=== PATIENT | female | born 1985 | race Caucasian/White ===

== ENCOUNTER 2017-12-09 16:17 | Emergency (ER) | payer SELFPAY ==
[2017-12-09 16:22] VITALS: BP 126/80; PULSE 73; TEMP 98.3; BMI 27.3
--- NOTE | 2017-12-09 16:24 | PDOC ---
Rapid Medical Evaluation Chief Complaint: Pain Time Seen by Provider: 12/09/17 16:19 Medical Evaluation: Allergies Allergy/AdvReac Type Severity Reaction Status Date / Time No Known Drug Allergies Allergy Verified 12/09/17 16:22 Vital Signs Temp Pulse Resp BP Pulse Ox 98.3 F 73 19 126/80 99 12/09/17 16:20 12/09/17 16:20 12/09/17 16:20 12/09/17 16:20 12/09/17 16:20 12/09/17 17:05 The patient presents with a chief complaint of: Pinching pain in her lower abdomen for one day. No nausea, vomiting, no diarrhea I have performed a brief in-person evaluation of this patient; Pertinent physical exam findings: Soft non-tender abdomen I have ordered the following: CBC. CMP, UA, UC, Urine preg The patient will proceed to the ED for further evaluation.
[2017-12-09 18:18] LABS: URINE APPEARANCE CLEAR; URINE BILIRUBIN NEGATIVE (NEGATIVE); URINE BLOOD NEGATIVE (NEGATIVE); URINE COLOR YELLOW; URINE GLUCOSE (UA) 3+ (NEGATIVE); URINE KETONE 1+ (NEGATIVE); URINE NITRITE NEGATIVE (NEGATIVE); URINE PROTEIN NEGATIVE (NEGATIVE); URINE UROBILINOGEN NEGATIVE mg/dL (0.2-1.0)
[2017-12-09 18:20] LABS: BASO % 0.4 % (0-2.0); EOS % 0.7 % (0-4.5); HEMATOCRIT 31.5 % (32.4-45.2); HEMOGLOBIN 9.7 GM/dL (10.7-15.3); LYMPH % 30.3 % (8-40); MCHC 30.7 g/dl (32.0-36.0); MEAN CELL VOLUME 59.2 fl (80-96); MEAN PLT VOLUME 8.8 fl (7.5-11.1); MONO % 4.9 % (3.8-10.2); NEUT % 63.7 % (42.8-82.8); PLATELET COUNT 230 K/MM3 (134-434); RBC 5.32 M/mm3 (3.60-5.2); WHITE BLOOD COUNT 7.6 K/mm3 (4.0-10.0)
[2017-12-09 18:33] LABS: MCH 18.2 pg (25.7-33.7)
[2017-12-09 18:34] LABS: ADD RBC MORPHOLOGY YES
[2017-12-09 18:43] LABS: ALBUMIN 3.4 g/dl (3.4-5.0); ANION GAP 7 (8-16); BLOOD UREA NITROGEN 12 mg/dL (7-18); CALCIUM 7.9 mg/dL (8.5-10.1); CHLORIDE 100 mmol/L (98-107); CO2 25 mmol/L (21-32); CREATININE 0.4 mg/dL (0.55-1.02); GLUCOSE,RANDOM 212 mg/dL (74-106); SODIUM 132 mmol/L (136-145)
[2017-12-09 18:45] LABS: ALK PHOS 149 U/L (45-117); BILIRUBIN,TOTAL 0.6 mg/dL (0.2-1.0); TOT PROT 7.3 g/dl (6.4-8.2)
[2017-12-09 18:46] LABS: POTASSIUM 3.6 mmol/L (3.5-5.1); SGOT/AST 12 U/L (15-37); SGPT/ALT 25 U/L (12-78)
[2017-12-09 19:22] LABS: URINE LEUK ESTERASE 1+ (NEGATIVE)
--- NOTE | 2017-12-09 20:37 | PDOC ---
History of Present Illness - General Chief Complaint: Pain Stated Complaint: STOMACH PAIN Time Seen by Provider: 12/09/17 16:19 History Source: Patient Exam Limitations: No Limitations - History of Present Illness Travel History: No Initial Comments: 12/09/17 20:33 This is a 32-year-old woman without significant past medical history presents emergency department with 1 day of left pelvic pain. Patient states she felt a pinching feeling in her left pelvic area starting yesterday and rates the pain 8 /10. She states the pain comes and goes over the past day. She states she has been having white vaginal discharge starting yesterday. She reports having intercourse with one male partner over the past 2 years. She states she is only having vaginal intercourse and denies anal or oral sex. She denies any fevers, chills, nausea, vomiting, dysuria, hematuria, urinary urgency, rectal bleeding. Patient states her last menstrual period was 11/16/2017. Past History - Past Medical History Allergies/Adverse Reactions: Allergies Allergy/AdvReac Type Severity Reaction Status Date / Time No Known Drug Allergies Allergy Verified 12/09/17 16:22 Home Medications: Ambulatory Orders Glyburide 5 mg PO DAILY 11/23/13 Vitamins (Sjr) - 1 tab PO DAILY 11/30/13 Metronidazole [Flagyl -] 500 mg PO BID #14 tablet 12/09/17 Asthma: No Cancer: No Cardiac Disorders: No COPD: No Diabetes: Yes (gdm) HTN: No Seizures: No Thyroid Disease: No - Suicide/Smoking/Psychosocial Hx Smoking History: Never smoked Have you smoked in the past 12 months: No Information on smoking cessation initiated: No Hx Alcohol Use: No Drug/Substance Use Hx: No Substance Use Type: None Hx Substance Use Treatment: No Review of Systems - Review of Systems Able to Perform ROS?: Yes Is the patient limited Vietnamese proficient: No Constitutional: No: Symptoms Reported HEENTM: No: Symptoms Reported Respiratory: No: Symptoms reported Cardiac (ROS): No: Symptoms Reported ABD/GI: No: Symptoms Reported : Yes: See HPI Musculoskeletal: No: Symptoms Reported Integumentary: No: Symptoms Reported Neurological: No: Symptoms reported *Physical Exam - Vital Signs Last Vital Signs Temp Pulse Resp BP Pulse Ox 98.3 F 73 19 126/80 99 12/09/17 16:20 12/09/17 16:20 12/09/17 16:20 12/09/17 16:20 12/09/17 16:20 - Physical Exam General Appearance: Yes: Appropriately Dressed. No: Apparent Distress HEENT: positive: Normal ENT Inspection Neck: positive: Trachea midline, Supple Respiratory/Chest: positive: Lungs Clear, Normal Breath Sounds. negative: Respiratory Distress, Accessory Muscle Use Cardiovascular: positive: Regular Rhythm, Regular Rate Female Pelvic Exam: positive: cervical os closed, normal adnexa, discharge ( milky white). negative: CMT, adnexal tenderness Gastrointestinal/Abdominal: positive: Normal Bowel Sounds, Soft. negative: Tender Musculoskeletal: positive: Normal Inspection. negative: CVA Tenderness Extremity: positive: Normal Inspection, Normal Range of Motion Integumentary: positive: Normal Color, Dry, Warm Neurologic: positive: trade mark examiner II-XII NML intact, Fully Oriented, Alert, Normal Mood/ Affect, Normal Response, Motor Strength 04/02 ED Treatment Course - LABORATORY CBC & Chemistry Diagram: 12/09/17 18:00 12/09/17 18:00 - ADDITIONAL ORDERS Additional order review: Laboratory Results 12/09/17 12/09/17 12/09/17 18:00 18:00 18:00 Sodium 132 L Potassium 3.6 Chloride 100 Carbon Dioxide 25 Anion Gap 7 L BUN 12 Creatinine 0.4 L Creat Clearance w eGFR > 60 Random Glucose 212 H Calcium 7.9 L Total Bilirubin 0.6 AST 12 L ALT 25 Alkaline Phosphatase 149 H Total Protein 7.3 Albumin 3.4 Urine Color Yellow Urine Appearance Clear Urine pH 5.0 Ur Specific [place] 1.032 Urine Protein Negative Urine Glucose (UA) 3+ H Urine Ketones 1+ H Urine Blood Negative Urine Nitrite Negative Urine Bilirubin Negative Urine Urobilinogen Negative Ur Leukocyte Esterase 1+ H Urine HCG, Qual Negative 12/09/17 18:00 RBC 5.32 H D MCV 59.2 L MCHC 30.7 L RDW 19.0 H D MPV 8.8 Neutrophils % 63.7 Lymphocytes % 30.3 D Monocytes % 4.9 Eosinophils % 0.7 Basophils % 0.4 Medical Decision Making - Medical Decision Making 12/09/17 20:35 A/P: This is a 32-year-old woman without significant past medical history presents emergency department with 1 day of left pelvic pain. Patient states she felt a pinching feeling in her left pelvic area starting yesterday and rates the pain 8 /10. She states the pain comes and goes over the past day. She states she has been having white vaginal discharge starting yesterday. She reports having intercourse with one male partner over the past 2 years. She states she is only having vaginal intercourse and denies anal or oral sex. She denies any fevers, chills, nausea, vomiting, dysuria, hematuria, urinary urgency, rectal bleeding. Patient states her last menstrual period was 11/16/2017. Normoactive bowel sounds. Abdomen soft nontender nondistended. Patient with tenderness to palpation to left inguinal area. No adnexal tenderness. No cervical motion tenderness. A few eye discharge noted in the vault. Cervix is pink and os is closed. Diagnoses: Bacterial Vaginosis Laboratory evaluation reveals patient is not at this time. Patient with normal vitals. Given physical exam, I'll treat the patient with Flagyl 500 mg twice a day for 7 days. 12/09/17 22:44 *DC/Admit/Observation/Transfer Diagnosis at time of Disposition: Bacterial vaginosis - Discharge Dispostion Disposition: HOME Condition at time of disposition: Stable Admit: No - Prescriptions Prescriptions: Metronidazole [Flagyl -] 500 mg PO BID #14 tablet - Referrals - Patient Instructions Printed Discharge Instructions: DI for Bacterial Vaginosis Additional Instructions: Eating yogurt with live cultures may help prevent other infections. Take Flagyl 500 mg twice a day for the next 7 days. Finish all the medications. Avoid sexual activity for the next 7 days. Return to emergency department for any severe pain, worsening discharge, foul- smelling discharge, fevers, chills or any other concerns. Thank you very much for choosing us to provide your emergent healthcare needs. Print Language: MACEDONIAN - Post Discharge Activity
[2017-12-10 00:04] LABS: CALCIUM OXALATE CRYSTALS MODERATE /hpf (NONE SEEN); EPI CELLS RARE /HPF (FEW); URINE MUCUS RARE
== END 2017-12-09 23:24 | disposition home or self-care (01) ==
LOC: JER 16:17
DX: N76.0 Acute vaginitis (principal); B96.89 Other specified bacterial agents as the cause of diseases classified elsewhere
CPT/HCPCS: 36415; 80053; 81003; 81015; 84703; 85025; 87086; 99281-25

== ENCOUNTER 2018-08-12 09:15 | Inpatient (IN) | payer OTHER ==
[2018-08-12] MEDS ORDERED: ELECTROLYTE-148 SOLN 500 ML IV ONE (11:30)
[2018-08-12] MEDS ORDERED: CITRIC ACID/SODIUM CITRATE 30 ML UNIT-DOSE CUP PO ONE (11:30)
--- NOTE | 2018-08-12 11:50 | HP ---
Admitting History and Physical - Admission Chief Complaint: prior cs. 05/06 bpp History of Present Illness: 33 y/o comes to [facility] for an nst for gdm. Pt sent for bpp and 05/06 was score. Rec delivery. She is a prior cs and will plan for repeat. efw is 9lbs History Source: Patient - Past Medical History DIRECTOR OF CARDIOLOGY SERVICE LINE: No: Alzheimer's, CVA, Dementia, Migraine, Multiple Sclerosis, Peripheral Neuropathy, Parkinson's, Seizure, Syncope, TIA, Vertigo, Other Cardiovascular: No: AFIB, Aneurysm, Aortic Insufficiency, Aortic Stenosis, CAD, CHF, Deep Vein Thrombosis, HTN, Hyperlipdemia, OK, Mitral Insufficiency, Mitral Stenosis, Murmur, Pulmonary Hypertension, Other Pulmonary: No: Asthma, Bronchitis, Cancer, COPD, O2 Dependent, Pneumonia, Previously Intubated, Pulmonary Embolus, Pulmonary Fibrosis, Sleep Apnea, Other Gastrointestinal: No: Ascites, Cancer, Constipation, Crohn's Disease, Diverticulitis, Diverticulosis, Esophageal Varices, Gastritis, GERD, GI Bleed, Hemorrhoids, Hiatal Hernia, Inflamatory Bowel Disease, Irritable Bowel Disease, Pancreatitis, Peptic Ulcer Disease, Ulcerative Colitis, Other Hepatobiliary: No: Cirrhosis, Cholelithiasis, Cholecystitis, Choledocholithiasis , Hepatitis A, Hepatitis B, Hepatitis C, Other Renal/: No: Renal Failure, Renal Inusuff, BPH, Cancer, Hematuria, Hemodialysis , Neurogenic Bladder, Renal Calculi, UTI, Other Reproductive: No: Ectopic , Endometriosis, Fibroids, PID, Polycystic Ovary Syndrome, Postmenopausal, Other ...: 4 ...Para: 3 Heme/Onc: No: Anemia, B12 Deficiency, Bleeding Disorder, Cancer, Current Chemotherapy, Current Radiation Therapy, Hemochromatosis, Hypercoaguable State, Myeloproliferative Synd, Sickle Cell Disease, Sickle Cell Trait, Thrombocytopenia, Other Infectious Disease: No: AIDS, C-Diff, Herpes Zoster, HIV, MRSA, STD's, Tuberculosis, VREF, Other Psych: No: Addictions, Anxiety, Bipolar, Depression, Panic, Psychosis, Schizophrenia, Other Musculoskeletal: No: Bursitis, Chronic low back pain, Hemiparesis, Hemiplegia, Osteoarthritis, Paraplegia, Other ENT: No: Allergic Rhinitis, Sinusitis, Other Endocrine: No: Daniels's Disease, Adelso's Disease, Diabetes Insipidus, Diabetes Mellitus, Hyperparathyroidism, Hyperthyroidism, Hypothyroidism, Osteopenia, SIADH, Other - Past Surgical History Past Surgical History: No: None, AAA Repair, AICD, Amputation, Appendectomy, Arthrosocopy, AV Fistula/Graft, Bariatric Surgery, Breast Biopsy, Bypass, CABG, Carotid Endarterectomy, Cataract Removal, Cholecystectomy, Colectomy, Colonoscopy, Colostomy, Craniotomy, , Cystectomy, Hernia Repair, Hysterectomy, Ileal Conduit, Ileosotomy, Joint Replacement, Kidney Transplant, Laminectomy, Liver Transplant, Mastectomy, Nephrectomy, Oopherectomy, Orchiectomy, Permanent Pacemaker, Prostatectomy, Splenectomy, Stent, Thoracotomy , TURP, Tonsillectomy, Tubal Ligation, Upper Endoscopy, Valve Replacement, Vasectomy, Vein Stripping/Ligation - Advance Directives Advance Directives: No: Living Will, Health Care Proxy, DNR, Organ Donor, Tissue Donor, MOLST - Smoking History Smoking history: Never smoked Have you smoked in the past 12 months: No - Alcohol/Substance Use Hx Alcohol Use: No History of Substance Use: denies: None, Cocaine, Heroin, Marijuana, Prescription , Tranquilizers - Social History Usual Living Arrangement: No: Alone, With Spouse, With Parent, With Significant Other, With Child, Assisted Living, Skilled Nursing, Other Home Medications - Allergies Allergies/Adverse Reactions: Allergies Allergy/AdvReac Type Severity Reaction Status Date / Time No Known Drug Allergies Allergy Verified 08/10/18 09:48 - Home Medications Home Medications: Ambulatory Orders Glyburide 2.5 mg PO HS 11/23/13 Vitamins (Sjr) - 1 tab PO DAILY 11/30/13 Review of Systems - Review of Systems Constitutional: reports: No Symptoms Eyes: reports: No Symptoms HENT: reports: No Symptoms Neck: reports: No Symptoms Cardiovascular: reports: No Symptoms Respiratory: reports: No Symptoms Gastrointestinal: reports: No Symptoms Genitourinary: reports: No Symptoms Musculoskeletal: reports: No Symptoms Integumentary: reports: No Symptoms Neurological: reports: No Symptoms Endocrine: reports: No Symptoms Hematology/Lymphatic: reports: No Symptoms Psychiatric: reports: No Symptoms Physical Examination Vital Signs: Vital Signs Temperature 99.1 F 08/12/18 09:29 Pulse Rate 65 08/12/18 09:29 Respiratory Rate 20 08/12/18 09:29 Blood Pressure 120/62 08/12/18 09:29 O2 Sat by Pulse Oximetry (%) Constitutional: Yes: Well Nourished Eyes: Yes: WNL HENT: Yes: WNL Neck: Yes: WNL Cardiovascular: Yes: WNL Respiratory: Yes: WNL Gastrointestinal: Yes: WNL ...Rectal Exam: Yes: WNL Renal/: Yes: WNL Breast(s): Yes: WNL Musculoskeletal: Yes: WNL Extremities: Yes: WNL Integumentary: Yes: WNL Neurological: Yes: WNL ...Motor Strength: WNL Psychiatric: Yes: WNL Assessment/Plan admit for cs consents labs
[2018-08-12] MEDS ORDERED: ELECTROLYTE-148 SOLN 1,000 ML IV SCH (12:00)
[2018-08-12 12:20] VITALS: BMI 31.2
[2018-08-12 12:24] LABS: BASO % 0.6 % (0-2.0); EOS % 0.8 % (0-4.5); HEMATOCRIT 35.4 % (32.4-45.2); HEMOGLOBIN 11.3 GM/dL (10.7-15.3); LYMPH % 24.1 % (8-40); MCHC 31.9 g/dl (32.0-36.0); MEAN CELL VOLUME 75.1 fl (80-96); MONO % 5.7 % (3.8-10.2); NEUT % 68.8 % (42.8-82.8); PLATELET COUNT 128 K/MM3 (134-434); RBC 4.71 M/mm3 (3.60-5.2); RDW 16.3 % (11.6-15.6); WHITE BLOOD COUNT 6.9 K/mm3 (4.0-10.0)
[2018-08-12] MEDS ORDERED: PHENYLEPHRINE HCL 10 MG/1 ML SINGLE DOSE VIAL ONE (12:33)
[2018-08-12] MEDS ORDERED: DEXAMETHASONE SOD PHOSPHATE 4 MG/1 ML VIAL ONE (12:33)
[2018-08-12] MEDS ORDERED: ceFAZolin SODIUM 1 GM VIAL ONE (12:33)
[2018-08-12] MEDS ORDERED: morphine SULFATE/Preservative Free 0.5 MG/ML (1cc Syringe) ONE (12:33)
[2018-08-12 12:42] LABS: ANION GAP 11 MMOL/L (8-16); BLOOD UREA NITROGEN 9 mg/dL (7-18); CHLORIDE 110 mmol/L (98-107); CO2 20 mmol/L (21-32); CREATININE 0.4 mg/dL (0.55-1.3); GLUCOSE,RANDOM 90 mg/dL (74-106); SODIUM 141 mmol/L (136-145)
[2018-08-12 12:54] LABS: INR 0.95 (0.83-1.09); PROTHROMBIN TIME (PATIENT) 10.7 SEC (9.7-13.0)
[2018-08-12 12:57] LABS: ACTIVATED PTT 30.5 SECONDS (25.2-36.5)
[2018-08-12] MEDS ORDERED: METHYLERGONOVINE MALEATE 0.2 MG/1 ML AMP IM PRN (13:50)
[2018-08-12] MEDS ORDERED: ACETAMINOPHEN 1000 MG/100 ML VIAL (NON FORMULARY) IVPB PRN (14:09)
[2018-08-12] MEDS ORDERED: IBUPROFEN 800 MG/8 ML IJ IVPB PRN (14:10)
[2018-08-12] MEDS ORDERED: OXYTOCIN 20 UNITS in 0.9% NS 20 UNIT/1,000 ML INFUS.BAG IV ONE (15:13)
[2018-08-12] MEDS: OXYTOCIN 20 UNITS in 0.9% NS 20 UNIT/1,000 ML INFUS.BAG IV SCH (15:14)
[2018-08-12] MEDS ORDERED: ONDANSETRON 4 MG/2 ML VIAL IVPUSH PRN (19:37)
[2018-08-13] MEDS: OXYTOCIN 20 UNITS in 0.9% NS 20 UNIT/1,000 ML INFUS.BAG IV SCH
[2018-08-13 07:17] LABS: BASO % 0.4 % (0-2.0); EOS % 0.2 % (0-4.5); HEMATOCRIT 28.6 % (32.4-45.2); HEMOGLOBIN 9.3 GM/dL (10.7-15.3); LYMPH % 21.7 % (8-40); MCH 24.4 pg (25.7-33.7); MCHC 32.5 g/dl (32.0-36.0); MEAN CELL VOLUME 75.1 fl (80-96); MONO % 7.6 % (3.8-10.2); NEUT % 70.1 % (42.8-82.8); PLATELET COUNT 117 K/MM3 (134-434); RBC 3.81 M/mm3 (3.60-5.2); RDW 16.3 % (11.6-15.6); WHITE BLOOD COUNT 9.1 K/mm3 (4.0-10.0)
--- NOTE | 2018-08-13 08:32 | PN ---
Progress Note (short form) - Note Progress Note: Anesthesia Post op Pt seen and examined S:Alert and awake comfortable O: Vital Signs Temperature 98.1 F 08/13/18 08:10 Pulse Rate 52 L 08/13/18 08:10 Respiratory Rate 20 08/13/18 08:10 Blood Pressure 103/64 08/13/18 08:10 O2 Sat by Pulse Oximetry (%) 100 08/12/18 15:30 CBC, BMP 08/13/18 06:54 08/12/18 12:00 A/P s/p c section Doing well post op Continue current care Ethan Werner MD
--- NOTE | 2018-08-13 10:13 | PN ---
Post Progress Note Post Day: 1 Type of Delivery: Repeat C/S Vital Signs: Vital Signs Temperature 98.1 F 08/13/18 08:10 Pulse Rate 52 L 08/13/18 08:10 Respiratory Rate 20 08/13/18 08:10 Blood Pressure 103/64 08/13/18 08:10 O2 Sat by Pulse Oximetry (%) 100 08/12/18 15:30 Breast Exam: Yes: Soft Uterus: Yes: Fundus Firm Incision: Yes: Dressing dry and intact Abdomen/GI: Yes: Abdomen soft Lochia: Yes: Rubra Lochia, amount: Small Extremities: Yes: Calves non-tender Perineum: Yes: Intact Activity: Ambulating - Labs Labs: CBC WBC 9.1 K/mm3 (4.0-10.0) 08/13/18 06:54 RBC 3.81 M/mm3 (3.60-5.2) 08/13/18 06:54 Hgb 9.3 GM/dL (10.7-15.3) L 08/13/18 06:54 Hct 28.6 % (32.4-45.2) L D 08/13/18 06:54 MCV 75.1 fl (80-96) L 08/13/18 06:54 MCH 24.4 pg (25.7-33.7) L 08/13/18 06:54 MCHC 32.5 g/dl (32.0-36.0) 08/13/18 06:54 RDW 16.3 % (11.6-15.6) H 08/13/18 06:54 Plt Count 117 K/MM3 (134-434) L 08/13/18 06:54 MPV 10.0 fl (7.5-11.1) 08/13/18 06:54 Absolute Neuts (auto) 6.4 K/mm3 (1.5-8.0) 08/13/18 06:54 Neutrophils % 70.1 % (42.8-82.8) 08/13/18 06:54 Lymphocytes % 21.7 % (8-40) 08/13/18 06:54 Monocytes % 7.6 % (3.8-10.2) 08/13/18 06:54 Eosinophils % 0.2 % (0-4.5) 09/15/18 06:54 Basophils % 0.4 % (0-2.0) 08/13/18 06:54 Nucleated RBC % 0 % (0-0) 08/13/18 06:54 Assessment/Plan oob reg diet continue care
[2018-08-13] MEDS ORDERED: BISACODYL 10 MG SUPP.RECT RC PRN (13:51)
[2018-08-13] MEDS: IBUPROFEN 600 MG TABLET (FP) PO PRN (18:41)
[2018-08-13] MEDS: SIMETHICONE 80 MG TAB.CHEW (FP) PO PRN (18:41)
[2018-08-13] MEDS: oxyCODONE HCL 5 MG TABLET PO PRN (20:39)
[2018-08-14] MEDS: oxyCODONE HCL 5 MG TABLET PO PRN ×3 (05:42→21:03)
[2018-08-14] MEDS: SIMETHICONE 80 MG TAB.CHEW (FP) PO PRN ×3 (05:42→21:02)
[2018-08-14] MEDS: IBUPROFEN 600 MG TABLET (FP) PO PRN ×2 (10:46→21:02)
--- NOTE | 2018-08-14 11:52 | PN ---
Post Progress Note - Subjective Subjective: Pt feeling well. Tolerating diet. No flatus. Would like btl for contraception. Did not sign tubal papers Post Day: 2 Type of Delivery: Repeat C/S Vital Signs: Vital Signs Temperature 98.4 F 08/14/18 08:33 Pulse Rate 68 08/14/18 08:33 Respiratory Rate 20 08/14/18 08:33 Blood Pressure 108/68 08/14/18 08:33 O2 Sat by Pulse Oximetry (%) 100 08/12/18 15:30 Breast Exam: Yes: Soft Uterus: Yes: Fundus Firm Incision: Yes: [place] intact Abdomen/GI: Yes: Abdomen soft Lochia: Yes: Rubra Lochia, amount: Small Extremities: Yes: Calves non-tender Perineum: Yes: Intact Activity: Ambulating - Labs Labs: CBC WBC 9.1 K/mm3 (4.0-10.0) 08/13/18 06:54 RBC 3.81 M/mm3 (3.60-5.2) 08/13/18 06:54 Hgb 9.3 GM/dL (10.7-15.3) L 08/13/18 06:54 Hct 28.6 % (32.4-45.2) L D 08/13/18 06:54 MCV 75.1 fl (80-96) L 08/13/18 06:54 MCH 24.4 pg (25.7-33.7) L 08/13/18 06:54 MCHC 32.5 g/dl (32.0-36.0) 08/13/18 06:54 RDW 16.3 % (11.6-15.6) H 08/13/18 06:54 Plt Count 117 K/MM3 (134-434) L 08/13/18 06:54 MPV 10.0 fl (7.5-11.1) 08/13/18 06:54 Absolute Neuts (auto) 6.4 K/mm3 (1.5-8.0) 08/13/18 06:54 Neutrophils % 70.1 % (42.8-82.8) 08/13/18 06:54 Lymphocytes % 21.7 % (8-40) 08/13/18 06:54 Monocytes % 7.6 % (3.8-10.2) 08/13/18 06:54 Eosinophils % 0.2 % (0-4.5) 08/13/18 06:54 Basophils % 0.4 % (0-2.0) 08/13/18 06:54 Nucleated RBC % 0 % (0-0) 08/13/18 06:54 Problem List - Problems (1) section Assessment/Plan: Pt POD#2 s/p rpt c/s doing well diet as tolerated ambulation encouraged continue routine postop care Dr. Ford
[2018-08-15 07:13] LABS: BASO % 0.5 % (0-2.0); HEMATOCRIT 29.6 % (32.4-45.2); HEMOGLOBIN 9.5 GM/dL (10.7-15.3); LYMPH % 16.3 % (8-40); MCH 24.1 pg (25.7-33.7); MCHC 32.2 g/dl (32.0-36.0); MEAN CELL VOLUME 74.9 fl (80-96); MEAN PLT VOLUME 8.6 fl (7.5-11.1); MONO % 4.5 % (3.8-10.2); NEUT % 77.7 % (42.8-82.8); PLATELET COUNT 165 K/MM3 (134-434); RBC 3.95 M/mm3 (3.60-5.2); RDW 16.3 % (11.6-15.6); WHITE BLOOD COUNT 8.4 K/mm3 (4.0-10.0)
[2018-08-15 11:24] VITALS: BP 109/64; PULSE 72; TEMP 98.6
--- NOTE | 2018-08-19 16:32 | PATH ---
Surgical Pathology Report Patient Name: ESPERANZA UGARTE [facility]. Rec. 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 Specimen(s) Received PLACENTA Clinical History , gestational diabetic, x1 Final Diagnosis PLACENTA: THIRD TRIMESTER PLACENTA. TRIVASCULAR CORD. MEMBRANES WITH NO DIAGNOSTIC ABNORMALITIES. Electronically Signed Armen Cherry M.D. Gross Description The specimen is received fresh labeled placenta and is a 593 gram, 16.0 x 14.0 x 3.4 cm. placenta with attached membranes and umbilical cord. The attached membranes are herring, translucent with focal opacities and insert marginally. The umbilical cord measures 52 cm. in length and averages 1.2 cm. in diameter. The cord inserts eccentrically, 4 cm. to the nearest margin. No true knots or strictures are identified. Cut surface of the umbilical cord reveals 3 vessels. The surface is valentine-blue with minimal fibrin deposition and appropriate caliber vessels. The maternal surface is red-brown with focal defects. Sectioning reveals red-brown, spongy parenchyma. No lesions are identified. Biophysics Professor sections are submitted in three cassettes as follows: 1- membrane rolls and umbilical cord; 2-3- full thickness sections of placenta. /08/18/2018 [facility]08/18/2018
== END 2018-08-15 11:45 | disposition home or self-care (01) | DRG 540 ==
LOC: JDEL 09:15 → JLDR 11:30 → J3W 15:45
PROVIDERS: ADMIT Obstetrics & Gynecology; ATTEND Obstetrics & Gynecology
PROC: 10D00Z1 Extraction of Products of Conception, Low, Open Approach (ICD-10-PCS; principal; 2018-08-12)
DX: O34.211 Maternal care for low transverse scar from previous cesarean delivery (principal); O24.429 Gestational diabetes mellitus in childbirth, unspecified control; Z3A.38 38 weeks gestation of pregnancy; Z37.0 Single live birth
CPT/HCPCS: 36415; 59025; 80048; 82962; 85025; 85610; 85730; 86593; 86850; 86900; 86901; 88307-TC

== ENCOUNTER 2019-09-03 05:55 | Inpatient (IN) | payer OTHER ==
--- NOTE | 2019-09-03 07:10 | PDOC ---
History of Present Illness - General Chief Complaint: Pain, Acute Stated Complaint: ABD PAIN Time Seen by Provider: 09/03/19 07:08 Past History - Past Medical History Allergies/Adverse Reactions: Allergies Allergy/AdvReac Type Severity Reaction Status Date / Time No Known Drug Allergies Allergy Verified 09/03/19 06:07 Home Medications: Ambulatory Orders NK [No Known Home Medication] 09/03/19 Asthma: No Cancer: No Cardiac Disorders: No COPD: No Diabetes: Yes (gestational) HTN: No Seizures: No Thyroid Disease: No - Psycho Social/Smoking Cessation Hx Smoking History: Never smoked Have you smoked in the past 12 months: No Information on smoking cessation initiated: No Hx Alcohol Use: No Drug/Substance Use Hx: No Substance Use Type: None Hx Substance Use Treatment: No *Physical Exam - Vital Signs Last Vital Signs Temp Pulse Resp BP Pulse Ox 97.6 F 88 20 116/80 100 09/03/19 06:07 09/03/19 06:07 09/03/19 06:07 09/03/19 06:07 09/03/19 06:07 ED Treatment Course - LABORATORY CBC & Chemistry Diagram: 09/03/19 07:54 09/03/19 07:54 Medical Decision Making - Medical Decision Making HPI: 34yo F with PMH of gestational diabetes presenting with diffuse abdominal pain since 2am. She has never had pain like this before. Endorses nausea and bilious vomiting x 2. The pain is described as a "pressure" and rated 10/10. Pain is intermittent and worsened if she lays on her side. Endorses nausea and vomiting x 2 that was undigested food and bilious. Last bowel movement was around 5am and was a normal formed brown still without blood. History of abdominal surgeries include 2 c-sections. LMP is now and this pain is different from menstrual cramps. Never saw a GI doctor or had an endoscopy/colonoscopy. No urinary symptoms. No fevers or chills. PCP: None ROS: Constitutional: no fever, no chills HEENT: no throat pain, no dysphagia Cardiovascular: no chest pain, no palpitations Respiratory: no cough, no shortness of breath Gastrointestinal: +abdominal pain,+vomiting Genitourinary: no dysuria, no hematuria Musculoskeletal: no myalgia, no arthralgia Skin: no rash, no itching Neurologic: no headache, no weakness PE: General: Awake, alert, and fully oriented, in no acute distress Head: No signs of trauma Eyes: EOMI, sclera anicteric ENT: Moist mucus membranes Neck: Normal ROM, supple Lungs: Lungs clear, Normal breath sounds Cardio: Regular rhythm, S1 and S2 present Abdomen: Tender to palpation diffusely, most focal to epigastrium. Soft, nondistended. No guarding, no rebound, no masses. +bilateral CVA tenderness, L>R Extremities: Normal range of motion, Distal pulses present SKIN: Warm, Dry, normal turgor Neurologic: Cranial nerves II through XII grossly intact. Normal speech ED Course/MDM: DDX including but not limited to gastritis, biliary colic, pancreatitis, gastroenteritis, nephrolithiasis, pyelonephritis [facility] Huang 09/03/19 07:10 CBC WBC 14.6 K/mm3 (4.0-10.0) H 09/03/19 07:54 RBC 4.60 M/mm3 (3.60-5.2) 09/03/19 07:54 Hgb 13.0 GM/dL (10.7-15.3) 09/03/19 07:54 Hct 36.6 % (32.4-45.2) D 09/03/19 07:54 MCV 79.5 fl (80-96) L 09/03/19 07:54 MCH 28.3 pg (25.7-33.7) D 09/03/19 07:54 MCHC 35.6 g/dl (32.0-36.0) 09/03/19 07:54 RDW 16.2 % (11.6-15.6) H 09/03/19 07:54 Plt Count 215 K/MM3 (134-434) D 09/03/19 07:54 MPV 9.4 fl (7.5-11.1) 09/03/19 07:54 Absolute Neuts (auto) 13.2 K/mm3 (1.5-8.0) H 09/03/19 07:54 Neutrophils % 90.5 % (42.8-82.8) H 09/03/19 07:54 Lymphocytes % 5.5 % (8-40) L D 09/03/19 07:54 Monocytes % 3.0 % (3.8-10.2) L 09/03/19 07:54 Eosinophils % 0.2 % (0-4.5) 09/03/19 07:54 Basophils % 0.8 % (0-2.0) 09/03/19 07:54 Nucleated RBC % 0 % (0-0) 09/03/19 07:54 Leukocytosis CMP Sodium 131 mmol/L (136-145) L 09/03/19 07:54 Potassium 3.4 mmol/L (3.5-5.1) L 09/03/19 07:54 Chloride 97 mmol/L (98-107) L 09/03/19 07:54 Carbon Dioxide 24 mmol/L (21-32) 09/03/19 07:54 Anion Gap 10 MMOL/L (8-16) 09/03/19 07:54 BUN 9.7 mg/dL (7-18) 09/03/19 07:54 Creatinine 0.5 mg/dL (0.55-1.3) L 09/03/19 07:54 Est GFR (CKD-EPI)AfAm 144.31 09/03/19 07:54 Est GFR (CKD-EPI)NonAf 124.51 09/03/19 07:54 Random Glucose 297 mg/dL (74-106) H 09/03/19 07:54 Calcium 7.3 mg/dL (8.5-10.1) L 09/03/19 07:54 Total Bilirubin 0.6 mg/dL (0.2-1) 09/03/19 07:54 AST U/L (15-37) 09/03/19 07:54 ALT U/L (13-61) 09/03/19 07:54 Alkaline Phosphatase 145 U/L (45-117) H 09/03/19 07:54 Total Protein 6.8 g/dl (6.4-8.2) 09/03/19 07:54 Albumin 3.2 g/dl (3.4-5.0) L 09/03/19 07:54 Lipase 4937 U/L (73-393) H 09/03/19 07:54 Low sodium ALP mildly elevated Liver enzymes grossly lipemic UA negative Upreg negative Lipase is greater than three times the upper limit of normal Maintenance fluids ordered Morphine for pain Plan for admission Will order EKG and CXR for admission 09/03/19 09:16 CXR, as read by radiology: "EXAM#: TYPE/EXAM: RESULT: [id number] RAD/CHEST X-RAY PORTABLE* Portable chest: Admission. Pancreatitis. Pain. There are no prior studies for comparison. There is a weak inspiration with slight rotation to the left, central crowding, normal mediastinum and sharp angles. There may be a right upper lobe granuloma. The bones and soft tissues are intact. Impression: Weak inspiration with crowding. Possible right upper lobe granuloma. No prior studies for comparison. " EKG: rate 88, QTc 481, NSR MB sent 09/03/19 09:[address] Benoit who accepted patient for admission under Dr. Manning 09/03/19 10:17 Discharge - Discharge Information Problems reviewed: Yes Clinical Impression/Diagnosis: Pancreatitis Qualifiers: Chronicity: acute Pancreatitis type: unspecified pancreatitis type Acute pancreatitis complication: unspecified Qualified Code(s): K85.90 - Acute pancreatitis without necrosis or infection, unspecified Condition: Guarded - Admission Yes - Follow up/Referral - Patient Discharge Instructions - Post Discharge Activity
--- NOTE | 2019-09-03 07:26 | PDOC ---
Attending Attestation - Resident Resident Name: Antonina Miller - ED Attending Attestation I have performed the following: I have examined & evaluated the patient, The case was reviewed & discussed with the resident, I agree w/resident's findings & plan, Exceptions are as noted - HPI HPI: 09/03/19 08:23 34y F no pmhx presents with complaint of intermittent perssure like LLQ pain that radiates to the epigastrium that recurrs every 5 min lasting for about a min at a time associated with some nausea/vomitin gat home without any associated fever/chils, hematemsis, melena/bpr, diarrhea, dysuria, hematuria, cp , sob, leg swelling. - Physicial Exam PE: 09/03/19 08:26 on exam pt in n odistress abd: mild ttp in epigsatrium, no rebound/guaring, mild L CVA tendeness card: rrr, no mrg pulm: cta b/l ext: no edema - Medical Decision Making 09/03/19 08:26 ddx - pancreatitis, kidney stones, gastritis will ck ua, labs, fluids/tylenol will erassess 09/03/19 09:08 pts labs reviewed noted signiicant elevation of lipase cw panceratitis, no chnge in LFTs, no RUQ ttp will admit for management NPO Heart Score/ECG Review - ECG Impressions Comment:: 09/03/19 10:53 Twelve-lead EKG was performed and reviewed by me. There is normal sinus rhythm with a normal rate. rate of 88 The axis is normal. qt intevarval of 88
[2019-09-03] MEDS ORDERED: SODIUM CHLORIDE 1,000 ML IV STA (07:30)
[2019-09-03] MEDS ORDERED: ACETAMINOPHEN 1000 MG/100 ML VIAL (NON FORMULARY) IVPB ONE (07:30)
[2019-09-03] MEDS ORDERED: ONDANSETRON 4 MG/2 ML VIAL IVPUSH ONE (07:30)
[2019-09-03] MEDS ORDERED: ONDANSETRON 4 MG/2 ML VIAL ONE (07:49)
[2019-09-03] MEDS ORDERED: ACETAMINOPHEN INJECTION 100 ML IVPB ONE (07:49)
[2019-09-03 08:06] LABS: BASO % 0.8 % (0-2.0); EOS % 0.2 % (0-4.5); HEMATOCRIT 36.6 % (32.4-45.2); LYMPH % 5.5 % (8-40); MCH 28.3 pg (25.7-33.7); MCHC 35.6 g/dl (32.0-36.0); MEAN CELL VOLUME 79.5 fl (80-96); MEAN PLT VOLUME 9.4 fl (7.5-11.1); NEUT % 90.5 % (42.8-82.8); PLATELET COUNT 215 K/MM3 (134-434); RDW 16.2 % (11.6-15.6); WHITE BLOOD COUNT 14.6 K/mm3 (4.0-10.0)
[2019-09-03 08:46] LABS: ALBUMIN 3.2 g/dl (3.4-5.0); BILIRUBIN,TOTAL 0.6 mg/dL (0.2-1); BLOOD UREA NITROGEN 9.7 mg/dL (7-18); CALCIUM 7.3 mg/dL (8.5-10.1); CREATININE 0.5 mg/dL (0.55-1.3); POTASSIUM 3.4 mmol/L (3.5-5.1); TOT PROT 6.8 g/dl (6.4-8.2)
[2019-09-03] MEDS ORDERED: morphine CARPU-JECT 4 MG/1 ML DISP.SYRIN IVPUSH ONE ×2 (09:08→11:29)
[2019-09-03] MEDS ORDERED: SODIUM CHLORIDE 1,000 ML IV SCH (09:15)
[2019-09-03 09:18] LABS: EPI CELLS 2.7 /HPF (0-5/HPF); HYALINE CASTS 1 /lpf (0-8); URINE RBC 0 /hpf (0-4); URINE WBC 2 /hpf (0-5)
[2019-09-03 09:22] LABS: URINE APPEARANCE Clear; URINE COLOR Yellow; URINE GLUCOSE (UA) 2+ (NEGATIVE)
[2019-09-03 09:23] LABS: URINE BILIRUBIN Negative (NEGATIVE); URINE KETONE 4+ (NEGATIVE); URINE PROTEIN Negative (NEGATIVE)
[2019-09-03] MEDS ORDERED: morphine SULFATE 4 MG/ML VIAL ONE ×2 (09:23→11:30)
[2019-09-03 09:24] LABS: URINE LEUK ESTERASE Negative (NEGATIVE); URINE NITRITE Negative (NEGATIVE); URINE UROBILINOGEN 0.2 mg/dL (0.2-1.0)
--- NOTE | 2019-09-03 11:13 | HP ---
CHIEF COMPLAINT: severe diffuse upper abdominal pain radiating to back w/a NV PCP: HISTORY OF PRESENT ILLNESS: 34F w/ pmh of gestational diabetes(2018, that pt states resolved) BIBA after being awoken at ~0200 with severe 10/0 upper abd pain radiating to the back w/a chills, sweating, nausea, vomiting(yellow and food-like). Denies having similiar pain in the past. Denies history of postprandial abd pain, dx of GB stones, recent heavy EtOH usage. Pain improved after StJ-ED administration of ofirmev and morphine. No personal history of TB or contact with other that have had TB. LMP started ~6d prior to presentation. [facility]#[id number] ER course was notable for: (1) Lipase ~4937 (2) CXR: possible RUL granuloma (3) ofirmev, zofran; morphine 4mg, NS 1L bolus Recent Travel: none PAST MEDICAL HISTORY: gestational diabetes(2018, that pt states resolved) PAST SURGICAL HISTORY: c-sections x2 Social History: Smoking: denies Alcohol: holiday drinking Drugs: none Allergies No Known Drug Allergies Allergy (Verified 09/03/19 06:07) HOME MEDICATIONS: Home Medications Medication Instructions Recorded NK [No Known Home Medication] 09/03/19 REVIEW OF SYSTEMS CONSTITUTIONAL: chills w/ sweating, loss of appetite Absent: fever, generalized weakness, malaise HEENT: Absent: difficulty swallowing, mouth swelling CARDIOVASCULAR: Absent: chest pain, syncope, palpitations, irregular heart rate, lightheadedness , peripheral edema RESPIRATORY: Absent: cough, shortness of breath, dyspnea with exertion, orthopnea, wheezing, stridor, hemoptysis GASTROINTESTINAL: nausea, vomiting, abdominal pain Absent: abdominal distension, diarrhea, constipation, melena, hematochezia GENITOURINARY: Absent: dysuria, frequency, urgency, hesitancy, hematuria, flank pain, genital pain MUSCULOSKELETAL: Absent: myalgia, arthralgia, joint swelling, back pain, neck pain SKIN: Absent: rash, itching, pallor HEMATOLOGIC/IMMUNOLOGIC: Absent: easy bleeding, easy bruising, lymphadenopathy, frequent infections ENDOCRINE: Absent: unexplained weight gain, unexplained weight loss NEUROLOGIC: Absent: headache, dizziness, seizure, mental status changes, bladder or bowel incontinence PHYSICAL EXAMINATION Vital Signs - 24 hr 09/03/19 09/03/19 06:07 09:37 Temperature 97.6 F Pulse Rate 88 Pulse Rate [ 87 Apical] Respiratory 20 18 Rate Blood Pressure 116/80 Blood Pressure 119/88 [Right Arm] O2 Sat by Pulse 100 98 Oximetry (%) GENERAL: Awake, alert, and fully oriented, in no acute distress. HEAD: Normal with no signs of trauma. No temporal wasting EYES: Pupils equal, round and reactive to light, extraocular movements intact, sclera anicteric, conjunctiva clear. EARS, NOSE, THROAT: oropharynx clear without exudates. Moist mucous membranes. NECK: Normal range of motion, supple without lymphadenopathy, JVD, or masses. LUNGS: Breath sounds equal, clear to auscultation bilaterally. No wheezes, and no crackles. No accessory muscle use. HEART: Regular rate and rhythm, normal S1 and S2 without murmur, rub or gallop. ABDOMEN: Soft, not distended, normoactive bowel sounds, no guarding, no rebound. Tenderness with deep palpitation of the epigastrium. Neg CVA MUSCULOSKELETAL: Normal range of motion at all joints. No bony deformities or tenderness. UPPER EXTREMITIES: 2+ pulses, warm, well-perfused. No cyanosis. No clubbing. No peripheral edema. LOWER EXTREMITIES: 2+ pulses, warm, well-perfused. No calf tenderness. No peripheral edema. NEUROLOGICAL: Normal speech. SKIN: Warm, dry, normal turgor, no rashes or lesions noted, normal capillary refill. Laboratory Results - last 24 hr 09/03/19 09/03/19 09/03/19 07:50 07:50 07:54 WBC 14.6 H RBC 4.60 Hgb 13.0 Hct 36.6 D MCV 79.5 L MCH 28.3 D MCHC 35.6 RDW 16.2 H Plt Count 215 D MPV 9.4 Absolute Neuts (auto) 13.2 H Neutrophils % 90.5 H Lymphocytes % 5.5 L D Monocytes % 3.0 L Eosinophils % 0.2 Basophils % 0.8 Nucleated RBC % 0 Sodium Potassium Chloride Carbon Dioxide Anion Gap BUN Creatinine Est GFR (CKD-EPI)AfAm Est GFR (CKD-EPI)NonAf Random Glucose Calcium Total Bilirubin AST ALT Alkaline Phosphatase Total Protein Albumin Lipase Urine Color Yellow Urine Appearance Clear Urine pH 6.0 Ur Specific [place] 1.020 Urine Protein Negative Urine Glucose (UA) 2+ H Urine Ketones 4+ H Urine Blood 3+ H Urine Nitrite Negative Urine Bilirubin Negative Urine Urobilinogen 0.2 Ur Leukocyte Esterase Negative Urine WBC (Auto) 2 Urine RBC (Auto) 0 Urine Casts (Auto) 1 U Epithel Cells (Auto) 2.7 Urine Bacteria (Auto) 38.0 Urine HCG, Qual Negative 09/03/19 09/03/19 07:54 07:54 WBC RBC Hgb Hct MCV MCH MCHC RDW Plt Count MPV Absolute Neuts (auto) Neutrophils % Lymphocytes % Monocytes % Eosinophils % Basophils % Nucleated RBC % Sodium 131 L Potassium 3.4 L Chloride 97 L Carbon Dioxide 24 Anion Gap 10 BUN 9.7 Creatinine 0.5 L Est GFR (CKD-EPI)AfAm 144.31 Est GFR (CKD-EPI)NonAf 124.51 Random Glucose 297 H Calcium 7.3 L Total Bilirubin 0.6 AST ALT Alkaline Phosphatase 145 H Total Protein 6.8 Albumin 3.2 L Lipase 4937 H Urine Color Urine Appearance Urine pH Ur Specific [place] Urine Protein Urine Glucose (UA) Urine Ketones Urine Blood Urine Nitrite Urine Bilirubin Urine Urobilinogen Ur Leukocyte Esterase Urine WBC (Auto) Urine RBC (Auto) Urine Casts (Auto) U Epithel Cells (Auto) Urine Bacteria (Auto) Urine HCG, Qual ASSESSMENT/PLAN: 34F w/ pmh of gestational diabetes(2018, that pt states resolved) presenting with severe epigastric abdominal pain and lipase 4937 suggestive of acute pancreatitis. #acute pancreatitis >RUQ US: fatty liver, GB w/o stones or wall thickening >lipase 4937 >triglycerides 2961 -mIVF -NPO -pain control: morphine 2mg q6h PRN -insulin gtt #Diabetes >blood sugar 297 >HbA1c ~10.9 -ISS q6h #hypokalemia -replete PRN #leukocytosis >CXR: possible RUL granuloma >WBC 14.6(neutrophils 90.5%) #DVT prophylaxis -lovenox #FEN -NPO -IVF: D5LR + KCl #Dispo: -ICU for q1h glucose checks Family Medical History Family History: Denies Visit type - Emergency Visit Emergency Visit: Yes ED Registration Date: 09/03/19 Care time: The patient presented to the Emergency Department on the above date and was hospitalized for further evaluation of their emergent condition. - New Patient This patient is new to me today: Yes Date on this admission: 09/03/19 - Critical Care Critical Care patient: No ATTENDING PHYSICIAN STATEMENT I saw and evaluated the patient. I reviewed the resident's note and discussed the case with the resident. I agree with the resident's findings and plan as documented. SUBJECTIVE: OBJECTIVE: ASSESSMENT AND PLAN:
[2019-09-03] MEDS: LACTATED RINGERS SOLUTION 1,000 ML IV SCH ×2 (11:40→17:29)
[2019-09-03] MEDS ORDERED: ENOXAPARIN NA (PORCINE) 40 MG/0.4 ML DISP.SYRIN SQ ONE (11:49)
[2019-09-03] MEDS: ENOXAPARIN NA (PORCINE) 40 MG/0.4 ML DISP.SYRIN SQ SCH (12:00)
--- NOTE | 2019-09-03 12:45 | PN ---
Teaching Attending Note Name of Resident: Mehran Benoit ATTENDING PHYSICIAN STATEMENT I saw and evaluated the patient. I reviewed the resident's note and discussed the case with the resident. I agree with the resident's findings and plan as documented. SUBJECTIVE:34yo F wtih PMH gestational DM but not currently on medications presented with sudden onset of epigastric tenderness. pain 10/10 with radiation to the back. assoc with nausea and vomiting. no previous episodes in the past. no pain when eating fried foods. does not take any medications OTC or Rx, no herbal supplements. denies CP, SOB, fever, chills, D/C denies ETOH use OBJECTIVE: Last Vital Signs Temp Pulse Resp BP Pulse Ox 98 F 83 18 128/71 99 09/03/19 11:47 09/03/19 11:47 09/03/19 11:47 09/03/19 11:47 09/03/19 11:47 General mild distresss due to pain CV S1 S2 tachy lungs CTA B/L no wheezing/rales/rhonchi Abdomen soft +epigastric and LUQ tenderness. neg mo sign ASSESSMENT AND PLAN: 34yo F wtih PMH gestational DM presented with epigastric pain and found to have acute pancreatitis 1. Acute pancreatitis- medicine admission. dx by HPI and elevated Lipase. possible gallstones due to likely cholestasis. Start NPO, LR @200cc, nausea and pain control with morphine. check TG level and RUQ U/S. 2. hypokalemia- Kcl 3. Hyperglycemia- check A1c. BGM and iss 4. pseudohyponatremia 5. Leukocytosis- likely stress induced and from inflammation. will hold abx at this time 6. DVT ppx- lovenox
[2019-09-03] MEDS: MORPHINE SULFATE 2 MG/ML VIAL IVPUSH PRN (13:35)
[2019-09-03] MEDS: INSULIN SLIDING SCALE (NOVOLOG) 1 VIAL SQ SCH ×2 (13:39→17:34)
[2019-09-03 15:05] LABS: PLATELET ESTIMATE ADEQUATE
[2019-09-03] MEDS ORDERED: MORPHINE SULFATE 2 MG/ML VIAL IVPUSH ONE (18:45)
[2019-09-03] MEDS: D5-LR+20 MEQ KCL - 20 MEQ/1,000 ML INFUS.BAG IV SCH (18:55)
--- NOTE | 2019-09-03 19:26 | CONSULT ---
Consult Consult Specialty:: Pulm/CCM Reason for Consultation:: pancreatitis - History of Present Illness Chief Complaint: abd pain, nausea History of Present Illness: This is a 34 yo woman w/ no significant PMH beside gestational diabetes who was in her usual state of health until ~2am on day of admission when she developed chills, severe abdominal pain starting in the epigastric area radiating to her back (09/07) w/ nausea and vomiting (NBNB) x2 prompting ED visit. In the ED abd u/s was done w/o signs of acute cholecystitis or obstruction. Labs significant negative Beta HCG, leukocytosis (wbc 14.6), glucose 297 w/o AG, lipase 4937. Patient was admitted to the floor for continued care. Further w/o showed triglyceride level 2961, calcium 7.3. On exam RR 24. Per patient she not started any new medication or had a change in her diet. She thinks her sister may have had a similar diagnosis in the past. [facility] was consulted for ICU transfer for insulin drip and IV fluids. 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) - Past Medical History ...: No - Past Surgical History Past Surgical History: Yes: - Alcohol/Substance Use Hx Alcohol Use: No - Smoking History Smoking history: Never smoked Have you smoked in the past 12 months: No Home Medications - Allergies Allergies/Adverse Reactions: Allergies Allergy/AdvReac Type Severity Reaction Status Date / Time No Known Drug Allergies Allergy Verified 09/03/19 06:07 - Home Medications Home Medications: Ambulatory Orders NK [No Known Home Medication] 09/03/19 Family Medical History Other Family History: Sister w/ h/o pancreatitis Review of Systems - Review of Systems Constitutional: reports: Chills Respiratory: reports: SOB Gastrointestinal: reports: Abdominal Pain, Nausea, Vomiting Physical Exam Vital Signs: Vital Signs Temperature 97.8 F 09/03/19 17:45 Pulse Rate 86 09/03/19 17:45 Respiratory Rate 18 09/03/19 17:45 Blood Pressure 124/74 09/03/19 17:45 O2 Sat by Pulse Oximetry (%) 99 09/03/19 11:47 Current Medications Chlorhexidine Gluconate (Hibiclens For Decolonization -) 1 applic TP HS DEBBIE Enoxaparin Sodium (Lovenox -) 40 mg SQ DAILY [facility] Last Admin: 09/03/19 12:00 Dose: 40 mg Dextrose/Lactated Ringer's (D5-Lr+20 Meq Kcl -) 20 meq in 1,000 mls @ 200 mls/ hr IV ASDIR DEBBIE Last Admin: 09/03/19 18:55 Dose: 200 mls/hr Insulin Human Regular 100 (units/ Sodium Chloride) 100 mls @ 6.57 mls/hr IVPB TITR DEBBIE; Protocol Morphine Sulfate (Morphine Sulfate) 2 mg IVPUSH Q6H PRN PRN Reason: PAIN LEVEL 6-10 Last Admin: 09/03/19 13:35 Dose: 2 mg Mupirocin (Bactroban Ointment (For Decolonization) -) 1 applic NS BID [facility] Stop: 09/08/19 21:59 Constitutional: Yes: Moderate Distress Eyes: Yes: EOM Intact HENT: Yes: Normocephalic Neck: Yes: Trachea Midline Cardiovascular: Yes: Regular Rate and Rhythm, S1, S2 Respiratory: Yes: CTA Bilaterally Gastrointestinal: Yes: Soft, Abdomen, Obese, Tenderness, Epigastrium Extremities: Yes: WNL Edema: No Neurological: Yes: Alert, Oriented ...Motor Strength: WNL Labs: CBC, BMP 09/03/19 07:54 09/03/19 07:54 Imaging - Results Ultrasound: Report Reviewed, Image Reviewed Problem List - Problems (1) Pancreatitis Code(s): K85.90 - ACUTE PANCREATITIS WITHOUT NECROSIS OR INFECTION, UNSP Qualifiers: Chronicity: acute Pancreatitis type: unspecified pancreatitis type Acute pancreatitis complication: unspecified Qualified Code(s): K85.90 - Acute pancreatitis without necrosis or infection, unspecified Assessment/Plan a/p: 34 yo woman w hypertriglyceridemia r/t pancreatitis (HTGP) -Start insulin drip at 0.1units/kg -IV fluids: D5 LR -Q6h Trig serum -If <500 can d/c insulin gtt and start SQ insulin -May benefit from fenofibrate once triglycerides correct -possible familial history; pursue genetic testing -Pain control: Tylenol and Morphine -NPO with early directed feeding when possible -Zofran PRN for nausea -DVT prophylaxis -GI prophylaxis Boerem ACNP Pulm/CCM CCT: 35m
[2019-09-03] MEDS ORDERED: ONDANSETRON 4 MG/2 ML VIAL IVPUSH PRN (19:29)
[2019-09-03] MEDS: INSULIN REGULAR 100 UNITS in SODIUM CHLORIDE 99 ML IVPB SCH (20:30)
[2019-09-03 20:37] LABS: BLOOD UREA NITROGEN 4.5 mg/dL (7-18); CREATININE 0.3 mg/dL (0.55-1.3)
[2019-09-03 20:41] LABS: CALCIUM 6.6 mg/dL (8.5-10.1)
[2019-09-03] MEDS ORDERED: CALCIUM GLUCONATE 10% - 1,000 MG/10 ML VIAL IVPB ONE (20:44)
[2019-09-03] MEDS: PANTOPRAZOLE SODIUM 40 MG VIAL IVPUSH SCH (21:15)
[2019-09-03] MEDS: MUPIROCIN 2% TOPICAL OINTMENT FOR DECOLONIZATION NS SCH (21:16)
[2019-09-03] MEDS: KCL 10 MEQ IVPB 10 MEQ/100 ML INFUS.BAG IVPB SCH ×2 (21:16→22:29)
[2019-09-03] MEDS: CHLORHEXIDINE GLUCONATE 4% CLEANSER FOR DECOLONIZATION TP SCH (21:20)
[2019-09-04] MEDS: MORPHINE SULFATE 2 MG/ML VIAL IVPUSH PRN ×4 (00:45→23:51)
[2019-09-04 01:06] LABS: BLOOD UREA NITROGEN 5.1 mg/dL (7-18); CALCIUM 7.4 mg/dL (8.5-10.1); CREATININE 0.4 mg/dL (0.55-1.3); POTASSIUM 3.1 mmol/L (3.5-5.1)
[2019-09-04] MEDS: KCL 10 MEQ IVPB 10 MEQ/100 ML INFUS.BAG IVPB SCH ×5 (02:37→07:37)
[2019-09-04] MEDS: D5-LR+20 MEQ KCL - 20 MEQ/1,000 ML INFUS.BAG IV SCH (05:49)
[2019-09-04 06:39] LABS: HEMATOCRIT 40.7 % (32.4-45.2); MCH 27.4 pg (25.7-33.7); MCHC 34.5 g/dl (32.0-36.0); MEAN CELL VOLUME 79.5 fl (80-96); MEAN PLT VOLUME 9.7 fl (7.5-11.1); PLATELET COUNT 253 K/MM3 (134-434); RBC 5.12 M/mm3 (3.60-5.2); RDW 16.3 % (11.6-15.6); WHITE BLOOD COUNT 10.5 K/mm3 (4.0-10.0)
[2019-09-04] MEDS ORDERED: CALCIUM GLUCONATE 10% - 1,000 MG/10 ML VIAL IVPB ONE (07:00)
[2019-09-04 07:27] LABS: BLOOD UREA NITROGEN 7.1 mg/dL (7-18); CALCIUM 7.2 mg/dL (8.5-10.1); CREATININE 0.4 mg/dL (0.55-1.3); MAGNESIUM 1.5 mg/dL (1.8-2.4); PHOSPHOROUS 1.8 mg/dL (2.5-4.9); POTASSIUM 3.6 mmol/L (3.5-5.1)
[2019-09-04] MEDS ORDERED: SODIUM PHOSPHATE - 0 MM in DEXTROSE 5%-WATER - 250 ML IVPB ONE (07:37)
[2019-09-04] MEDS ORDERED: MAGNESIUM 1GM/D5W 100ML - 100 ML IVPB IVPB ONE (08:00)
[2019-09-04] MEDS ORDERED: PT OWN MED DRAWER 7, Y5N ONE (08:15)
[2019-09-04] MEDS ORDERED: POTASSIUM PHOSPHATE 15 MM in DEXTROSE 5%-WATER - 250 ML IVPB ONE (08:15)
[2019-09-04] MEDS: MUPIROCIN 2% TOPICAL OINTMENT FOR DECOLONIZATION NS SCH ×2 (09:34→21:00)
[2019-09-04] MEDS: PANTOPRAZOLE SODIUM 40 MG VIAL IVPUSH SCH ×2 (09:39→21:00)
[2019-09-04] MEDS: ENOXAPARIN NA (PORCINE) 40 MG/0.4 ML DISP.SYRIN SQ SCH (09:39)
[2019-09-04] MEDS: INSULIN REGULAR 100 UNITS in SODIUM CHLORIDE 99 ML IVPB SCH (09:40)
[2019-09-04] MEDS ORDERED: DEXTROSE 10%-WATER - 1,000 ML IV SCH (09:45)
--- NOTE | 2019-09-04 10:17 | PN ---
Physical Exam: SUBJECTIVE: Patient seen and examined in ICU. Pt in pain and nauseous 8/10 pressure like associated with pelvic pain. Patient has not been urinating often , every 6 hrs per nurse. OBJECTIVE: Vital Signs Period Temp Pulse Resp BP Sys/Christensen Pulse Ox Last 24 Hr 97.6 F-98.9 F 81-109 18-28 100-128/68-76 99-99 GENERAL: The patient is awake, alert, and fully oriented, in no acute distress. NECK: supple. LUNGS: Breath sounds equal, clear to auscultation bilaterally, no wheezes, no crackles. HEART: tachycardic and regular rhythm, S1, S2 without murmur, rub or gallop. ABDOMEN: Soft, tender, mildly distended, hypoactive bowel sounds, with guarding and rebound tenderness to palpation. EXTREMITIES: warm, well-perfused, no edema. SKIN: Warm, clammy, no rashes or lesions noted Laboratory Results - last 24 hr 09/03/19 09/03/19 09/03/19 07:54 07:54 10:00 WBC RBC Hgb Hct MCV MCH MCHC RDW Plt Count MPV Neutrophils % (Manual) 80.8 Band Neutrophils % 11.1 Lymphocytes % (Manual) 8.1 Monocytes % (Manual) 0 L Eosinophils % (Manual) 0.0 Basophils % (Manual) 0.0 Myelocytes % (Man) 0 Promyelocytes % (Man) 0 Blast Cells % (Manual) 0 Metamyelocytes 0 Platelet Estimate Adequate Sodium 131 L Potassium 3.4 L Chloride 97 L Carbon Dioxide 24 Anion Gap 10 BUN 9.7 Creatinine 0.5 L Est GFR (CKD-EPI)AfAm 144.31 Est GFR (CKD-EPI)NonAf 124.51 POC Glucometer Random Glucose 297 H Hemoglobin A1c % 10.9 H Lactic Acid Calcium 7.3 L Phosphorus Magnesium Total Bilirubin 0.6 AST ALT Alkaline Phosphatase 145 H Total Protein 6.8 Albumin 3.2 L Triglycerides 2961 H Cholesterol 363 H Total LDL Cholesterol 111 H HDL Cholesterol 25 L Lipase 09/03/19 09/03/19 09/03/19 12:42 17:33 19:28 WBC RBC Hgb Hct MCV MCH MCHC RDW Plt Count MPV Neutrophils % (Manual) Band Neutrophils % Lymphocytes % (Manual) Monocytes % (Manual) Eosinophils % (Manual) Basophils % (Manual) Myelocytes % (Man) Promyelocytes % (Man) Blast Cells % (Manual) Metamyelocytes Platelet Estimate Sodium 131 L Potassium 3.0 L Chloride 99 Carbon Dioxide 24 Anion Gap 9 BUN 4.5 L Creatinine 0.3 L Est GFR (CKD-EPI)AfAm 170.72 Est GFR (CKD-EPI)NonAf 147.30 POC Glucometer 186 193 Random Glucose 201 H Hemoglobin A1c % Lactic Acid Calcium 6.6 L* Phosphorus Magnesium Total Bilirubin AST ALT Alkaline Phosphatase Total Protein Albumin Triglycerides Cholesterol Total LDL Cholesterol HDL Cholesterol Lipase 09/03/19 09/03/19 09/03/19 20:00 21:04 22:10 WBC RBC Hgb Hct MCV MCH MCHC RDW Plt Count MPV Neutrophils % (Manual) Band Neutrophils % Lymphocytes % (Manual) Monocytes % (Manual) Eosinophils % (Manual) Basophils % (Manual) Myelocytes % (Man) Promyelocytes % (Man) Blast Cells % (Manual) Metamyelocytes Platelet Estimate Sodium Potassium Chloride Carbon Dioxide Anion Gap BUN Creatinine Est GFR (CKD-EPI)AfAm Est GFR (CKD-EPI)NonAf POC Glucometer 197 231 164 Random Glucose Hemoglobin A1c % Lactic Acid Calcium Phosphorus Magnesium Total Bilirubin AST ALT Alkaline Phosphatase Total Protein Albumin Triglycerides Cholesterol Total LDL Cholesterol HDL Cholesterol Lipase 09/03/19 09/04/19 09/04/19 23:07 00:15 00:21 WBC RBC Hgb Hct MCV MCH MCHC RDW Plt Count MPV Neutrophils % (Manual) Band Neutrophils % Lymphocytes % (Manual) Monocytes % (Manual) Eosinophils % (Manual) Basophils % (Manual) Myelocytes % (Man) Promyelocytes % (Man) Blast Cells % (Manual) Metamyelocytes Platelet Estimate Sodium 134 L Potassium 3.1 L Chloride 101 Carbon Dioxide 24 Anion Gap 9 BUN 5.1 L Creatinine 0.4 L Est GFR (CKD-EPI)AfAm 155.30 Est GFR (CKD-EPI)NonAf 134.00 POC Glucometer 152 132 Random Glucose 144 H Hemoglobin A1c % Lactic Acid Calcium 7.4 L Phosphorus Magnesium Total Bilirubin AST ALT Alkaline Phosphatase Total Protein Albumin Triglycerides Cholesterol Total LDL Cholesterol HDL Cholesterol Lipase 09/04/19 09/04/19 09/04/19 01:22 02:19 03:21 WBC RBC Hgb Hct MCV MCH MCHC RDW Plt Count MPV Neutrophils % (Manual) Band Neutrophils % Lymphocytes % (Manual) Monocytes % (Manual) Eosinophils % (Manual) Basophils % (Manual) Myelocytes % (Man) Promyelocytes % (Man) Blast Cells % (Manual) Metamyelocytes Platelet Estimate Sodium Potassium Chloride Carbon Dioxide Anion Gap BUN Creatinine Est GFR (CKD-EPI)AfAm Est GFR (CKD-EPI)NonAf POC Glucometer 169 172 154 Random Glucose Hemoglobin A1c % Lactic Acid Calcium Phosphorus Magnesium Total Bilirubin AST ALT Alkaline Phosphatase Total Protein Albumin Triglycerides Cholesterol Total LDL Cholesterol HDL Cholesterol Lipase 09/04/19 09/04/19 09/04/19 04:24 05:20 05:20 WBC 10.5 H RBC 5.12 Hgb 14.0 Hct 40.7 MCV 79.5 L MCH 27.4 MCHC 34.5 RDW 16.3 H Plt Count 253 MPV 9.7 Neutrophils % (Manual) Band Neutrophils % Lymphocytes % (Manual) Monocytes % (Manual) Eosinophils % (Manual) Basophils % (Manual) Myelocytes % (Man) Promyelocytes % (Man) Blast Cells % (Manual) Metamyelocytes Platelet Estimate Sodium 134 L Potassium 3.6 Chloride 102 Carbon Dioxide 24 Anion Gap 9 BUN 7.1 Creatinine 0.4 L Est GFR (CKD-EPI)AfAm 155.30 Est GFR (CKD-EPI)NonAf 134.00 POC Glucometer 165 Random Glucose 120 H Hemoglobin A1c % Lactic Acid Calcium 7.2 L Phosphorus 1.8 L Magnesium 1.5 L Total Bilirubin AST ALT Alkaline Phosphatase Total Protein Albumin Triglycerides 1167 H Cholesterol Total LDL Cholesterol HDL Cholesterol Lipase 1765 H 09/04/19 09/04/19 09/04/19 05:40 06:49 07:44 WBC RBC Hgb Hct MCV MCH MCHC RDW Plt Count MPV Neutrophils % (Manual) Band Neutrophils % Lymphocytes % (Manual) Monocytes % (Manual) Eosinophils % (Manual) Basophils % (Manual) Myelocytes % (Man) Promyelocytes % (Man) Blast Cells % (Manual) Metamyelocytes Platelet Estimate Sodium Potassium Chloride Carbon Dioxide Anion Gap BUN Creatinine Est GFR (CKD-EPI)AfAm Est GFR (CKD-EPI)NonAf POC Glucometer 123 158 200 Random Glucose Hemoglobin A1c % Lactic Acid Calcium Phosphorus Magnesium Total Bilirubin AST ALT Alkaline Phosphatase Total Protein Albumin Triglycerides Cholesterol Total LDL Cholesterol HDL Cholesterol Lipase 09/04/19 09/04/19 09/04/19 08:44 08:45 09:56 WBC RBC Hgb Hct MCV MCH MCHC RDW Plt Count MPV Neutrophils % (Manual) Band Neutrophils % Lymphocytes % (Manual) Monocytes % (Manual) Eosinophils % (Manual) Basophils % (Manual) Myelocytes % (Man) Promyelocytes % (Man) Blast Cells % (Manual) Metamyelocytes Platelet Estimate Sodium Potassium Chloride Carbon Dioxide Anion Gap BUN Creatinine Est GFR (CKD-EPI)AfAm Est GFR (CKD-EPI)NonAf POC Glucometer 188 181 Random Glucose Hemoglobin A1c % Lactic Acid 1.0 Calcium Phosphorus Magnesium Total Bilirubin AST ALT Alkaline Phosphatase Total Protein Albumin Triglycerides Cholesterol Total LDL Cholesterol HDL Cholesterol Lipase Active Medications Generic Name Dose Route Start Last Admin Trade Name Freq PRN Reason Stop Dose Admin Chlorhexidine Gluconate 1 applic 09/03/19 22:00 09/03/19 21:20 Hibiclens For Decolonization - TP 1 applic HS DEBBIE Administration Enoxaparin Sodium 40 mg 09/03/19 11:30 09/04/19 09:39 Lovenox - SQ 40 mg DAILY DEBBIE Administration Insulin Human Regular 100 100 mls @ 6.57 mls/hr 09/03/19 18:15 09/04/19 09:40 units/ Sodium Chloride IVPB 0.1 units/kg/hr TITR DEBBIE 6.57 mls/hr Administration Protocol 0.1 UNITS/KG/HR Potassium Phosphate 15 mm/ 255 mls @ 62.5 mls/hr 09/04/19 08:15 09/04/19 09: 39 Dextrose IVPB 09/04/19 12:19 62.5 mls/hr ONCE ONE Administration Ceftriaxone Sodium 1 gm/ 50 mls @ 100 mls/hr 09/04/19 10:00 Dextrose IVPB DAILY DEBBIE Protocol Dextrose/Lactated Ringer's 1,000 mls @ 200 mls/hr 09/04/19 10:15 D5-Lr - IV ASDIR DEBBIE Morphine Sulfate 2 mg 09/04/19 08:03 09/04/19 08:24 Morphine Sulfate IVPUSH 2 mg Q4H PRN Administration PAIN LEVEL 6-10 Mupirocin 1 applic 09/03/19 22:00 09/04/19 09:34 Bactroban Ointment (For Decolonization) - NS 09/08/19 21:59 1 applic BID DEBBIE Administration Ondansetron HCl 4 mg 09/03/19 19:29 Zofran Injection IVPUSH Q4H PRN NAUSEA AND/OR VOMITING Pantoprazole Sodium 40 mg 09/03/19 22:00 09/04/19 09:39 Protonix Iv IVPUSH 40 mg BID DEBBIE Administration ASSESSMENT/PLAN: This is a 34 yo woman w hypertriglyceridemia confirmed to have acute pancreatitis. Endocrine -> HTGP -c/w insulin drip at 0.1units/kg -IV fluids: D5 LR, if hypoglycemic will give amp of D50 prn. -Q12h Trig serum -If <500 can d/c insulin gtt and start SQ insulin - gemfibrozil 600 BID once pt can tolerate PO. -possible familial history; pursue genetic testing -Pain control: Tylenol and Morphine 2Q4H - endo consult Dr. Rojo -NPO with early feeding when abd pain improves and pt can tolerate. -Zofran PRN for nausea -DVT prophylaxis lovenox 40SQ -GI prophylaxis 40BID protonix ID -> UTI - uncomplicated - UA Cx group B strep agalactiae and staph aureus - 1g Ceftriaxone IVPB daily - sheppard catheter Dispo: We will continue to follow the patient. Thank you for this consulative opportunity! Visit type - Emergency Visit Emergency Visit: Yes ED Registration Date: 09/03/19 Care time: The patient presented to the Emergency Department on the above date and was hospitalized for further evaluation of their emergent condition. - New Patient This patient is new to me today: Yes Date on this admission: 09/04/19 - Critical Care Critical Care patient: Yes Total Critical Care Time (in minutes): 35 Critical Care Statement: The care of this patient involved high complexity decision making to prevent further life threatening deterioration of the patient 's condition and/or to evaluate & treat vital organ system(s) failure or risk of failure. - Discharge Referral Referred to [facility] No
[2019-09-04] MEDS ORDERED: DEXTROSE 5%-WATER - 50 ML IVPB ONE (10:25)
[2019-09-04] MEDS ORDERED: cefTRIAXone SODIUM 1 GM VIAL ONE (10:25)
--- NOTE | 2019-09-04 10:29 | EKG ---
Test Reason : Blood Pressure : / mmHG Vent. Rate : 088 BPM Atrial Rate : 088 BPM P-R Int : 140 ms QRS Dur : 080 ms QT Int : 398 ms P-R-T Axes : 048 004 018 degrees QTc Int : 481 ms NORMAL SINUS RHYTHM PROLONGED QT ABNORMAL ECG NO PREVIOUS ECGS AVAILABLE Confirmed by RIO JEROME MD ([id number]) on 09/04/2019 10:28:33 AM Referred By: Confirmed By:RIO JEROME MD
[2019-09-04] MEDS: CEFTRIAXONE 1 GM in DEXTROSE 5%-WATER - 50 ML IVPB SCH (10:30)
[2019-09-04] MEDS ORDERED: BISACODYL 10 MG SUPP.RECT PR PRN (11:22)
[2019-09-04] MEDS: DEXTROSE 5%-LACTATED RINGERS 1,000 ML IV SCH ×2 (11:24→17:06)
--- NOTE | 2019-09-04 11:25 | PN ---
Teaching Attending Note Name of Resident: Bernardo Olivares ATTENDING PHYSICIAN STATEMENT I saw and evaluated the patient. I reviewed the resident's note and discussed the case with the resident. I agree with the resident's findings and plan as documented. SUBJECTIVE: Patient seen and examined in the ICU. Awake and alert. Mildly uncomfortable due to abdominal pain. On IV Insulin. No CP or SOB. Intake & Output 09/01/19 09/02/19 09/03/19 09/04/19 23:59 23:59 23:59 23:59 Intake Total 1286 Output Total 200 Balance 1286 -200 Weight 145 lb Last Vital Signs Temp Pulse Resp BP Pulse Ox 98.5 F 109 H 22 H 104/69 99 09/04/19 07:54 09/04/19 07:54 09/04/19 07:54 09/04/19 07:54 09/04/19 07:54 Active Medications Acetaminophen (Ofirmev Injection -) 1,000 mg IVPB Q6H PRN PRN Reason: MILD PAIN Chlorhexidine Gluconate (Hibiclens For Decolonization -) 1 applic TP HS DEBBIE Last Admin: 09/03/19 21:20 Dose: 1 applic Enoxaparin Sodium (Lovenox -) 40 mg SQ DAILY DEBBIE Last Admin: 09/04/19 09:39 Dose: 40 mg Insulin Human Regular 100 (units/ Sodium Chloride) 100 mls @ 6.57 mls/hr IVPB TITR DEBBIE; Protocol Last Admin: 09/04/19 09:40 Dose: 0.1 units/kg/hr, 6.57 mls/hr Potassium Phosphate 15 mm/ (Dextrose) 255 mls @ 62.5 mls/hr IVPB ONCE ONE Stop: 09/04/19 12:19 Last Admin: 09/04/19 09:39 Dose: 62.5 mls/hr Ceftriaxone Sodium 1 gm/ (Dextrose) 50 mls @ 100 mls/hr IVPB DAILY DEBBIE; Protocol Last Admin: 09/04/19 10:30 Dose: 100 mls/hr Dextrose/Lactated Ringer's (D5-Lr -) 1,000 mls @ 200 mls/hr IV ASDIR DEBBIE Morphine Sulfate (Morphine Sulfate) 2 mg IVPUSH Q4H PRN PRN Reason: PAIN LEVEL 6-10 Last Admin: 09/04/19 08:24 Dose: 2 mg Mupirocin (Bactroban Ointment (For Decolonization) -) 1 applic NS BID [facility] Stop: 09/08/19 21:59 Last Admin: 09/04/19 09:34 Dose: 1 applic Ondansetron HCl (Zofran Injection) 4 mg IVPUSH Q4H PRN PRN Reason: NAUSEA AND/OR VOMITING Pantoprazole Sodium (Protonix Iv) 40 mg IVPUSH BID [facility] Last Admin: 09/04/19 09:39 Dose: 40 mg Constitutional: Yes: Mild distress due to pain Eyes: Yes: EOM Intact HENT: Yes: Normocephalic Neck: Yes: Trachea Midline Cardiovascular: Yes: Regular Rate and Rhythm, S1, S2 Respiratory: Yes: CTA Bilaterally Gastrointestinal: Yes: Soft, Abdomen, Obese, (+) diffuse mild tenderness, (-) guarding / rebound Extremities: Yes: WNL Edema: No Neurological: Yes: Alert, Oriented ...Motor Strength: WNL Labs: Laboratory Results - last 24 hr 09/03/19 09/03/19 09/03/19 07:54 07:54 10:00 WBC RBC Hgb Hct MCV MCH MCHC RDW Plt Count MPV Neutrophils % (Manual) 80.8 Band Neutrophils % 11.1 Lymphocytes % (Manual) 8.1 Monocytes % (Manual) 0 L Eosinophils % (Manual) 0.0 Basophils % (Manual) 0.0 Myelocytes % (Man) 0 Promyelocytes % (Man) 0 Blast Cells % (Manual) 0 Metamyelocytes 0 Platelet Estimate Adequate Sodium 131 L Potassium 3.4 L Chloride 97 L Carbon Dioxide 24 Anion Gap 10 BUN 9.7 Creatinine 0.5 L Est GFR (CKD-EPI)AfAm 144.31 Est GFR (CKD-EPI)NonAf 124.51 POC Glucometer Random Glucose 297 H Hemoglobin A1c % 10.9 H Lactic Acid Calcium 7.3 L Phosphorus Magnesium Total Bilirubin 0.6 AST ALT Alkaline Phosphatase 145 H Total Protein 6.8 Albumin 3.2 L Triglycerides 2961 H Cholesterol 363 H Total LDL Cholesterol 111 H HDL Cholesterol 25 L Lipase 09/03/19 09/03/19 09/03/19 12:42 17:33 19:28 WBC RBC Hgb Hct MCV MCH MCHC RDW Plt Count MPV Neutrophils % (Manual) Band Neutrophils % Lymphocytes % (Manual) Monocytes % (Manual) Eosinophils % (Manual) Basophils % (Manual) Myelocytes % (Man) Promyelocytes % (Man) Blast Cells % (Manual) Metamyelocytes Platelet Estimate Sodium 131 L Potassium 3.0 L Chloride 99 Carbon Dioxide 24 Anion Gap 9 BUN 4.5 L Creatinine 0.3 L Est GFR (CKD-EPI)AfAm 170.72 Est GFR (CKD-EPI)NonAf 147.30 POC Glucometer 186 193 Random Glucose 201 H Hemoglobin A1c % Lactic Acid Calcium 6.6 L* Phosphorus Magnesium Total Bilirubin AST ALT Alkaline Phosphatase Total Protein Albumin Triglycerides Cholesterol Total LDL Cholesterol HDL Cholesterol Lipase 09/03/19 09/03/19 09/03/19 20:00 21:04 22:10 WBC RBC Hgb Hct MCV MCH MCHC RDW Plt Count MPV Neutrophils % (Manual) Band Neutrophils % Lymphocytes % (Manual) Monocytes % (Manual) Eosinophils % (Manual) Basophils % (Manual) Myelocytes % (Man) Promyelocytes % (Man) Blast Cells % (Manual) Metamyelocytes Platelet Estimate Sodium Potassium Chloride Carbon Dioxide Anion Gap BUN Creatinine Est GFR (CKD-EPI)AfAm Est GFR (CKD-EPI)NonAf POC Glucometer 197 231 164 Random Glucose Hemoglobin A1c % Lactic Acid Calcium Phosphorus Magnesium Total Bilirubin AST ALT Alkaline Phosphatase Total Protein Albumin Triglycerides Cholesterol Total LDL Cholesterol HDL Cholesterol Lipase 09/03/19 09/04/19 09/04/19 23:07 00:15 00:21 WBC RBC Hgb Hct MCV MCH MCHC RDW Plt Count MPV Neutrophils % (Manual) Band Neutrophils % Lymphocytes % (Manual) Monocytes % (Manual) Eosinophils % (Manual) Basophils % (Manual) Myelocytes % (Man) Promyelocytes % (Man) Blast Cells % (Manual) Metamyelocytes Platelet Estimate Sodium 134 L Potassium 3.1 L Chloride 101 Carbon Dioxide 24 Anion Gap 9 BUN 5.1 L Creatinine 0.4 L Est GFR (CKD-EPI)AfAm 155.30 Est GFR (CKD-EPI)NonAf 134.00 POC Glucometer 152 132 Random Glucose 144 H Hemoglobin A1c % Lactic Acid Calcium 7.4 L Phosphorus Magnesium Total Bilirubin AST ALT Alkaline Phosphatase Total Protein Albumin Triglycerides Cholesterol Total LDL Cholesterol HDL Cholesterol Lipase 09/04/19 09/04/19 09/04/19 01:22 02:19 03:21 WBC RBC Hgb Hct MCV MCH MCHC RDW Plt Count MPV Neutrophils % (Manual) Band Neutrophils % Lymphocytes % (Manual) Monocytes % (Manual) Eosinophils % (Manual) Basophils % (Manual) Myelocytes % (Man) Promyelocytes % (Man) Blast Cells % (Manual) Metamyelocytes Platelet Estimate Sodium Potassium Chloride Carbon Dioxide Anion Gap BUN Creatinine Est GFR (CKD-EPI)AfAm Est GFR (CKD-EPI)NonAf POC Glucometer 169 172 154 Random Glucose Hemoglobin A1c % Lactic Acid Calcium Phosphorus Magnesium Total Bilirubin AST ALT Alkaline Phosphatase Total Protein Albumin Triglycerides Cholesterol Total LDL Cholesterol HDL Cholesterol Lipase 09/04/19 09/04/19 09/04/19 04:24 05:20 05:20 WBC 10.5 H RBC 5.12 Hgb 14.0 Hct 40.7 MCV 79.5 L MCH 27.4 MCHC 34.5 RDW 16.3 H Plt Count 253 MPV 9.7 Neutrophils % (Manual) Band Neutrophils % Lymphocytes % (Manual) Monocytes % (Manual) Eosinophils % (Manual) Basophils % (Manual) Myelocytes % (Man) Promyelocytes % (Man) Blast Cells % (Manual) Metamyelocytes Platelet Estimate Sodium 134 L Potassium 3.6 Chloride 102 Carbon Dioxide 24 Anion Gap 9 BUN 7.1 Creatinine 0.4 L Est GFR (CKD-EPI)AfAm 155.30 Est GFR (CKD-EPI)NonAf 134.00 POC Glucometer 165 Random Glucose 120 H Hemoglobin A1c % Lactic Acid Calcium 7.2 L Phosphorus 1.8 L Magnesium 1.5 L Total Bilirubin AST ALT Alkaline Phosphatase Total Protein Albumin Triglycerides 1167 H Cholesterol Total LDL Cholesterol HDL Cholesterol Lipase 1765 H 09/04/19 09/04/19 09/04/19 05:40 06:49 07:44 WBC RBC Hgb Hct MCV MCH MCHC RDW Plt Count MPV Neutrophils % (Manual) Band Neutrophils % Lymphocytes % (Manual) Monocytes % (Manual) Eosinophils % (Manual) Basophils % (Manual) Myelocytes % (Man) Promyelocytes % (Man) Blast Cells % (Manual) Metamyelocytes Platelet Estimate Sodium Potassium Chloride Carbon Dioxide Anion Gap BUN Creatinine Est GFR (CKD-EPI)AfAm Est GFR (CKD-EPI)NonAf POC Glucometer 123 158 200 Random Glucose Hemoglobin A1c % Lactic Acid Calcium Phosphorus Magnesium Total Bilirubin AST ALT Alkaline Phosphatase Total Protein Albumin Triglycerides Cholesterol Total LDL Cholesterol HDL Cholesterol Lipase 09/04/19 09/04/19 09/04/19 08:44 08:45 09:56 WBC RBC Hgb Hct MCV MCH MCHC RDW Plt Count MPV Neutrophils % (Manual) Band Neutrophils % Lymphocytes % (Manual) Monocytes % (Manual) Eosinophils % (Manual) Basophils % (Manual) Myelocytes % (Man) Promyelocytes % (Man) Blast Cells % (Manual) Metamyelocytes Platelet Estimate Sodium Potassium Chloride Carbon Dioxide Anion Gap BUN Creatinine Est GFR (CKD-EPI)AfAm Est GFR (CKD-EPI)NonAf POC Glucometer 188 181 Random Glucose Hemoglobin A1c % Lactic Acid 1.0 Calcium Phosphorus Magnesium Total Bilirubin AST ALT Alkaline Phosphatase Total Protein Albumin Triglycerides Cholesterol Total LDL Cholesterol HDL Cholesterol Lipase Problem List - Problems (1) Pancreatitis Code(s): K85.90 - ACUTE PANCREATITIS WITHOUT NECROSIS OR INFECTION, UNSP Qualifiers: Chronicity: acute Pancreatitis type: unspecified pancreatitis type Acute pancreatitis complication: unspecified Qualified Code(s): K85.90 - Acute pancreatitis without necrosis or infection, unspecified Assessment/Plan Acute Pancreatitis due to Hypertriglyceridemia Hyperglycemia Insulin drip IVF Follow serum Triglycerides NPO for now, hope to initiate feeds when pain is better Fenofibrate will need to be started Endocrine evaluation Pain control with Morphine sulfate VTE prophyalxis Requires ICU monitoring Dr Mcneal Critical care time spent in reviewing chart, evaluating patient and formulating plan - 36 minutes.
[2019-09-04] MEDS: ACETAMINOPHEN 1000 MG/100 ML VIAL (NON FORMULARY) IVPB PRN ×2 (11:38→20:14)
--- NOTE | 2019-09-04 12:46 | PN ---
Teaching Attending Note Name of Resident: Mehran Benoit ATTENDING PHYSICIAN STATEMENT I saw and evaluated the patient. I reviewed the resident's note and discussed the case with the resident. I agree with the resident's findings and plan as documented. SUBJECTIVE:continues to have abdominal pain.nausea has resolved. denies CP, fever, chills, N/V/c/D OBJECTIVE: Last Vital Signs Temp Pulse Resp BP Pulse Ox 98.5 F 109 H 22 H 104/69 99 09/04/19 07:54 09/04/19 07:54 09/04/19 07:54 09/04/19 07:54 09/04/19 07:54 General NAD CV S1 S2 tachy lungs CTA B/L no wheezing/rales/rhonchi Abdomen soft +epigastric and LUQ tenderness. neg mo sign ASSESSMENT AND PLAN: 34yo F wtih PMH gestational DM presented with epigastric pain and found to have acute pancreatitis 1. Acute pancreatitis due to hypertriglyceridemia-clinically stable. TG dropped to 1200. trend BID. on insulin ggt. will need to maintain till <500 then start fibrate therapy. cont LR with K at 200cc. check BMP Q4H and BGM hourly per protocol. U/s negative for stones. pain and nausea control. 2. hypokalemia- Kcl in IVF 3. Hypophosphatemia- Kphos 4. hypomagnesemia- mg iv 5. Hyperglycemia-A1c 10.9. will need to be started on levemir once off insulin ggt. educate on diabetic diet adn changes. 6. pseudohyponatremia 7. Leukocytosis- likely stress induced and from inflammation. will hold abx at this time 8. DVT ppx- lovenox 9. MICU monitoring The care of this patient involved high complexity decision making to prevent further life threatening deterioration of the patient's condition and/or to evaluate & treat vital organ system(s) failure or risk of failure. 37 minute
--- NOTE | 2019-09-04 17:26 | PN ---
Physical Exam: SUBJECTIVE: Patient seen and examined. NAEON. Endorses [id number] abd pain, has appetite. Denies dyspnea, SOB OBJECTIVE: Vital Signs Period Temp Pulse Resp BP Sys/Christensen Pulse Ox Last 24 Hr 97.6 F-99.9 F 86-123 18-28 100-126/67-81 99-99 GENERAL: Awake, alert, and fully oriented, in no acute distress. HEAD: Normal with no signs of trauma. No temporal wasting EYES: Pupils equal, round and reactive to light, extraocular movements intact, sclera anicteric, conjunctiva clear. EARS, NOSE, THROAT: oropharynx clear without exudates. Moist mucous membranes. NECK: Normal range of motion, supple without lymphadenopathy, JVD, or masses. LUNGS: Breath sounds equal, clear to auscultation bilaterally. No wheezes, and no crackles. No accessory muscle use. HEART: Regular rate and rhythm, normal S1 and S2 without murmur, rub or gallop. ABDOMEN: Soft, not distended, normoactive bowel sounds, no guarding, no rebound. Tenderness with deep palpitation of the epigastrium. Neg CVA MUSCULOSKELETAL: Normal range of motion at all joints. No bony deformities or tenderness. UPPER EXTREMITIES: 2+ pulses, warm, well-perfused. No cyanosis. No clubbing. No peripheral edema. LOWER EXTREMITIES: 2+ pulses, warm, well-perfused. No calf tenderness. No peripheral edema. NEUROLOGICAL: Normal speech. SKIN: Warm, dry, normal turgor, no rashes or lesions noted, normal capillary refill. Laboratory Results - last 24 hr 09/03/19 09/03/19 09/03/19 17:33 19:28 20:00 WBC RBC Hgb Hct MCV MCH MCHC RDW Plt Count MPV Sodium 131 L Potassium 3.0 L Chloride 99 Carbon Dioxide 24 Anion Gap 9 BUN 4.5 L Creatinine 0.3 L Est GFR (CKD-EPI)AfAm 170.72 Est GFR (CKD-EPI)NonAf 147.30 POC Glucometer 193 197 Random Glucose 201 H Lactic Acid Calcium 6.6 L* Phosphorus Magnesium Triglycerides Lipase 09/03/19 09/03/19 09/03/19 21:04 22:10 23:07 WBC RBC Hgb Hct MCV MCH MCHC RDW Plt Count MPV Sodium Potassium Chloride Carbon Dioxide Anion Gap BUN Creatinine Est GFR (CKD-EPI)AfAm Est GFR (CKD-EPI)NonAf POC Glucometer 231 164 152 Random Glucose Lactic Acid Calcium Phosphorus Magnesium Triglycerides Lipase 09/04/19 09/04/19 09/04/19 00:15 00:21 01:22 WBC RBC Hgb Hct MCV MCH MCHC RDW Plt Count MPV Sodium 134 L Potassium 3.1 L Chloride 101 Carbon Dioxide 24 Anion Gap 9 BUN 5.1 L Creatinine 0.4 L Est GFR (CKD-EPI)AfAm 155.30 Est GFR (CKD-EPI)NonAf 134.00 POC Glucometer 132 169 Random Glucose 144 H Lactic Acid Calcium 7.4 L Phosphorus Magnesium Triglycerides Lipase 09/04/19 09/04/19 09/04/19 02:19 03:21 04:24 WBC RBC Hgb Hct MCV MCH MCHC RDW Plt Count MPV Sodium Potassium Chloride Carbon Dioxide Anion Gap BUN Creatinine Est GFR (CKD-EPI)AfAm Est GFR (CKD-EPI)NonAf POC Glucometer 172 154 165 Random Glucose Lactic Acid Calcium Phosphorus Magnesium Triglycerides Lipase 09/04/19 09/04/19 09/04/19 05:20 05:20 05:40 WBC 10.5 H RBC 5.12 Hgb 14.0 Hct 40.7 MCV 79.5 L MCH 27.4 MCHC 34.5 RDW 16.3 H Plt Count 253 MPV 9.7 Sodium 134 L Potassium 3.6 Chloride 102 Carbon Dioxide 24 Anion Gap 9 BUN 7.1 Creatinine 0.4 L Est GFR (CKD-EPI)AfAm 155.30 Est GFR (CKD-EPI)NonAf 134.00 POC Glucometer 123 Random Glucose 120 H Lactic Acid Calcium 7.2 L Phosphorus 1.8 L Magnesium 1.5 L Triglycerides 1167 H Lipase 1765 H 09/04/19 09/04/19 09/04/19 06:49 07:44 08:44 WBC RBC Hgb Hct MCV MCH MCHC RDW Plt Count MPV Sodium Potassium Chloride Carbon Dioxide Anion Gap BUN Creatinine Est GFR (CKD-EPI)AfAm Est GFR (CKD-EPI)NonAf POC Glucometer 158 200 188 Random Glucose Lactic Acid Calcium Phosphorus Magnesium Triglycerides Lipase 09/04/19 09/04/19 09/04/19 08:45 09:56 11:27 WBC RBC Hgb Hct MCV MCH MCHC RDW Plt Count MPV Sodium Potassium Chloride Carbon Dioxide Anion Gap BUN Creatinine Est GFR (CKD-EPI)AfAm Est GFR (CKD-EPI)NonAf POC Glucometer 181 192 Random Glucose Lactic Acid 1.0 Calcium Phosphorus Magnesium Triglycerides Lipase 09/04/19 09/04/19 09/04/19 12:43 14:22 16:00 WBC RBC Hgb Hct MCV MCH MCHC RDW Plt Count MPV Sodium Potassium Chloride Carbon Dioxide Anion Gap BUN Creatinine Est GFR (CKD-EPI)AfAm Est GFR (CKD-EPI)NonAf POC Glucometer 210 206 166 Random Glucose Lactic Acid Calcium Phosphorus Magnesium Triglycerides Lipase 09/04/19 17:03 WBC RBC Hgb Hct MCV MCH MCHC RDW Plt Count MPV Sodium Potassium Chloride Carbon Dioxide Anion Gap BUN Creatinine Est GFR (CKD-EPI)AfAm Est GFR (CKD-EPI)NonAf POC Glucometer 141 Random Glucose Lactic Acid Calcium Phosphorus Magnesium Triglycerides Lipase Active Medications Generic Name Dose Route Start Last Admin Trade Name Freq PRN Reason Stop Dose Admin Acetaminophen 1,000 mg 09/04/19 11:10 09/04/19 11:38 Ofirmev Injection - IVPB 1,000 mg Q6H PRN Administration MILD PAIN Bisacodyl 10 mg 09/04/19 11:22 Dulcolax Suppository - [place] DAILY PRN CONSTIPATION Chlorhexidine Gluconate 1 applic 09/03/19 22:00 09/03/19 21:20 Hibiclens For Decolonization - TP 1 applic HS DEBBIE Administration Enoxaparin Sodium 40 mg 09/03/19 11:30 09/04/19 09:39 Lovenox - SQ 40 mg DAILY DEBBIE Administration Insulin Human Regular 100 100 mls @ 6.57 mls/hr 09/03/19 18:15 09/04/19 09:40 units/ Sodium Chloride IVPB 0.1 units/kg/hr TITR DEBBIE 6.57 mls/hr Administration Protocol 0.1 UNITS/KG/HR Ceftriaxone Sodium 1 gm/ 50 mls @ 100 mls/hr 09/04/19 10:00 09/04/19 10:30 Dextrose IVPB 100 mls/hr DAILY DEBBIE Administration Protocol Dextrose/Lactated Ringer's 1,000 mls @ 200 mls/hr 09/04/19 10:15 09/04/19 17: 06 D5-Lr - IV 200 mls/hr ASDIR DEBBIE Administration Morphine Sulfate 2 mg 09/04/19 08:03 09/04/19 16:59 Morphine Sulfate IVPUSH 2 mg Q4H PRN Administration PAIN LEVEL 6-10 Mupirocin 1 applic 09/03/19 22:00 09/04/19 09:34 Bactroban Ointment (For Decolonization) - NS 09/08/19 21:59 1 applic BID DEBBIE Administration Ondansetron HCl 4 mg 09/03/19 19:29 Zofran Injection IVPUSH Q4H PRN NAUSEA AND/OR VOMITING Pantoprazole Sodium 40 mg 09/03/19 22:00 09/04/19 09:39 Protonix Iv IVPUSH 40 mg BID DEBBIE Administration Vital Signs Temp 99.9 F H 09/04/19 15:00 Pulse 123 H 09/04/19 16:00 Resp 26 H 09/04/19 16:00 BP 105/80 09/04/19 16:00 Pulse Ox 99 09/04/19 07:54 Intake & Output 09/03/19 09/04/19 09/04/19 23:59 11:59 23:59 Intake Total 1286 Output Total 200 400 Balance 1286 -200 -400 Intake: IV 1286 Lactated Ringers Solution 1286 1,000 ml @ 200 mls/hr IV ASDIR DEBBIE Rx#: [id number] Output: Urine 200 400 Will 400 Void 200 Other: Voiding Method Toilet # Unmeasured Voids Void 2 2 Bowel Movement No Height 5 ft Weight Measurement Method Standing Scale ASSESSMENT/PLAN: 34F w/ pmh of gestational diabetes(2018, that pt states resolved) presenting with severe epigastric abdominal pain, lipase 4937, triglycerides 2961, suggestive of acute pancreatitis 2/2 hypertriglyceridemia #acute pancreatitis 2/2 hypertriglyceridemia >RUQ US: fatty liver, GB w/o stones or wall thickening >lipase 4937 >triglycerides 2961 --> 1167 -insulin gtt --once triglycerides <500, will convert to levemir(1/2 of total gtt dose) and cw insulin gtt for additional 2hs; add fenofibrate -mIVF -NPO -pain control: morphine 2mg q6h PRN -insulin gtt #nausea -ondansetron -pantoprazole #UTI >UA: (-)LE, (-)nitrite, (4+)ketones >UCX: strept Agalactiae Group B -ceftriaxone #Diabetes >blood sugar 297 >HbA1c ~10.9 -ISS q6h #hypokalemia -replete PRN #leukocytosis -- improving >CXR: possible RUL granuloma >WBC 14.6(neutrophils 90.5%) -->10.5 #DVT prophylaxis -lovenox #FEN -NPO -IVF: D5LR @200 #Dispo: -ICU for q1h glucose checks, insulin gtt Visit type - Emergency Visit Emergency Visit: No - New Patient This patient is new to me today: No - Critical Care Critical Care patient: No ATTENDING PHYSICIAN STATEMENT I saw and evaluated the patient. I reviewed the resident's note and discussed the case with the resident. I agree with the resident's findings and plan as documented. SUBJECTIVE: OBJECTIVE: ASSESSMENT AND PLAN:
[2019-09-04 19:40] LABS: CALCIUM 7.3 mg/dL (8.5-10.1); CREATININE 0.4 mg/dL (0.55-1.3); POTASSIUM 3.5 mmol/L (3.5-5.1)
[2019-09-04 19:42] LABS: ALBUMIN 2.2 g/dl (3.4-5.0); BILIRUBIN,DIRECT 0.1 mg/dL (0.0-0.2); BILIRUBIN,TOTAL 0.5 mg/dL (0.2-1); TOT PROT 5.1 g/dl (6.4-8.2)
[2019-09-04] MEDS: CHLORHEXIDINE GLUCONATE 4% CLEANSER FOR DECOLONIZATION TP SCH (21:00)
[2019-09-05] MEDS: INSULIN REGULAR 100 UNITS in SODIUM CHLORIDE 99 ML IVPB SCH (03:56)
[2019-09-05] MEDS: MORPHINE SULFATE 2 MG/ML VIAL IVPUSH PRN ×3 (04:03→19:44)
[2019-09-05] MEDS: DEXTROSE 5%-LACTATED RINGERS 1,000 ML IV SCH ×2 (04:04→10:17)
[2019-09-05 07:33] LABS: BASO % 0.2 % (0-2.0); HEMATOCRIT 36.1 % (32.4-45.2); LYMPH % 9.5 % (8-40); MCH 26.7 pg (25.7-33.7); MCHC 33.3 g/dl (32.0-36.0); MEAN CELL VOLUME 80.4 fl (80-96); MEAN PLT VOLUME 9.4 fl (7.5-11.1); MONO % 3.4 % (3.8-10.2); NEUT % 86.9 % (42.8-82.8); PLATELET COUNT 239 K/MM3 (134-434); RBC 4.49 M/mm3 (3.60-5.2); WHITE BLOOD COUNT 8.4 K/mm3 (4.0-10.0)
[2019-09-05 07:52] LABS: ALBUMIN 1.9 g/dl (3.4-5.0); BILIRUBIN,TOTAL 0.4 mg/dL (0.2-1); BLOOD UREA NITROGEN 8.6 mg/dL (7-18); CALCIUM 7.3 mg/dL (8.5-10.1); CREATININE 0.3 mg/dL (0.55-1.3); MAGNESIUM 1.8 mg/dL (1.8-2.4); POTASSIUM 3.5 mmol/L (3.5-5.1); TOT PROT 4.7 g/dl (6.4-8.2)
[2019-09-05] MEDS ORDERED: DEXTROSE 5%-WATER - 50 ML IVPB ONE (09:32)
[2019-09-05] MEDS ORDERED: cefTRIAXone SODIUM 1 GM VIAL ONE (09:32)
[2019-09-05] MEDS: MUPIROCIN 2% TOPICAL OINTMENT FOR DECOLONIZATION NS SCH ×2 (09:37→22:48)
[2019-09-05] MEDS: ENOXAPARIN NA (PORCINE) 40 MG/0.4 ML DISP.SYRIN SQ SCH (09:37)
[2019-09-05] MEDS: PANTOPRAZOLE SODIUM 40 MG VIAL IVPUSH SCH ×2 (09:37→22:46)
[2019-09-05] MEDS: CEFTRIAXONE 1 GM in DEXTROSE 5%-WATER - 50 ML IVPB SCH (09:37)
[2019-09-05] MEDS: ACETAMINOPHEN 1000 MG/100 ML VIAL (NON FORMULARY) IVPB PRN ×2 (10:22→23:55)
--- NOTE | 2019-09-05 10:49 | PN ---
Physical Exam: SUBJECTIVE: Patient seen and examined at bedside in the ICU. Patient is awake, alert, oriented. Reports epigastric abdominal pain. OBJECTIVE: Vital Signs Period Temp Pulse Resp BP Sys/Christensen Pulse Ox Last 24 Hr 98.1 F-99.9 F 110-125 20-35 105-125/67-82 96-98 GENERAL: The patient is awake, alert, and fully oriented, in no acute distress. HEAD: Normal with no signs of trauma. EYES: PERRL, extraocular movements intact, sclera anicteric, conjunctiva clear. No ptosis. ENT: Ears normal, nares patent, oropharynx clear without exudates, moist mucous membranes. NECK: Trachea midline, full range of motion, supple. LUNGS: Breath sounds equal, clear to auscultation bilaterally, no wheezes, no crackles, no accessory muscle use. HEART: Regular rate and rhythm, S1, S2 without murmur, rub or gallop. ABDOMEN: Soft, epigastric TTP, nondistended, no guarding, no rebound, no hepatosplenomegaly, no masses. EXTREMITIES: 2+ pulses, warm, well-perfused, no edema. NEUROLOGICAL: Cranial nerves II through XII grossly intact. Normal speech, gait not observed. PSYCH: Normal mood, normal affect. SKIN: Warm, dry, normal turgor, no rashes or lesions noted Laboratory Results - last 24 hr 09/04/19 09/04/19 09/04/19 11:27 12:43 14:22 WBC RBC Hgb Hct MCV MCH MCHC RDW Plt Count MPV Absolute Neuts (auto) Neutrophils % Lymphocytes % Monocytes % Eosinophils % Basophils % Nucleated RBC % Sodium Potassium Chloride Carbon Dioxide Anion Gap BUN Creatinine Est GFR (CKD-EPI)AfAm Est GFR (CKD-EPI)NonAf POC Glucometer 192 210 206 Random Glucose Calcium Magnesium Total Bilirubin Direct Bilirubin AST ALT Alkaline Phosphatase Total Protein Albumin Triglycerides 09/04/19 09/04/19 09/04/19 16:00 17:03 18:00 WBC RBC Hgb Hct MCV MCH MCHC RDW Plt Count MPV Absolute Neuts (auto) Neutrophils % Lymphocytes % Monocytes % Eosinophils % Basophils % Nucleated RBC % Sodium 134 L Potassium 3.5 Chloride 103 Carbon Dioxide 22 Anion Gap 9 BUN 7.0 Creatinine 0.4 L Est GFR (CKD-EPI)AfAm 155.30 Est GFR (CKD-EPI)NonAf 134.00 POC Glucometer 166 141 Random Glucose 127 H Calcium 7.3 L Magnesium Total Bilirubin Direct Bilirubin AST ALT Alkaline Phosphatase Total Protein Albumin Triglycerides 09/04/19 09/04/19 09/04/19 18:00 18:00 18:07 WBC RBC Hgb Hct MCV MCH MCHC RDW Plt Count MPV Absolute Neuts (auto) Neutrophils % Lymphocytes % Monocytes % Eosinophils % Basophils % Nucleated RBC % Sodium Potassium Chloride Carbon Dioxide Anion Gap BUN Creatinine Est GFR (CKD-EPI)AfAm Est GFR (CKD-EPI)NonAf POC Glucometer 134 Random Glucose Calcium Magnesium Total Bilirubin 0.5 Direct Bilirubin 0.1 AST 13 L ALT 19 Alkaline Phosphatase 76 Total Protein 5.1 L Albumin 2.2 L Triglycerides 570 H 09/04/19 09/04/19 09/04/19 19:03 20:05 21:22 WBC RBC Hgb Hct MCV MCH MCHC RDW Plt Count MPV Absolute Neuts (auto) Neutrophils % Lymphocytes % Monocytes % Eosinophils % Basophils % Nucleated RBC % Sodium Potassium Chloride Carbon Dioxide Anion Gap BUN Creatinine Est GFR (CKD-EPI)AfAm Est GFR (CKD-EPI)NonAf POC Glucometer 138 133 136 Random Glucose Calcium Magnesium Total Bilirubin Direct Bilirubin AST ALT Alkaline Phosphatase Total Protein Albumin Triglycerides 09/04/19 09/04/19 09/05/19 22:18 23:32 00:54 WBC RBC Hgb Hct MCV MCH MCHC RDW Plt Count MPV Absolute Neuts (auto) Neutrophils % Lymphocytes % Monocytes % Eosinophils % Basophils % Nucleated RBC % Sodium Potassium Chloride Carbon Dioxide Anion Gap BUN Creatinine Est GFR (CKD-EPI)AfAm Est GFR (CKD-EPI)NonAf POC Glucometer 129 126 132 Random Glucose Calcium Magnesium Total Bilirubin Direct Bilirubin AST ALT Alkaline Phosphatase Total Protein Albumin Triglycerides 09/05/19 09/05/19 09/05/19 01:49 02:48 03:52 WBC RBC Hgb Hct MCV MCH MCHC RDW Plt Count MPV Absolute Neuts (auto) Neutrophils % Lymphocytes % Monocytes % Eosinophils % Basophils % Nucleated RBC % Sodium Potassium Chloride Carbon Dioxide Anion Gap BUN Creatinine Est GFR (CKD-EPI)AfAm Est GFR (CKD-EPI)NonAf POC Glucometer 173 114 101 Random Glucose Calcium Magnesium Total Bilirubin Direct Bilirubin AST ALT Alkaline Phosphatase Total Protein Albumin Triglycerides 09/05/19 09/05/19 09/05/19 05:18 05:59 05:59 WBC 8.4 RBC 4.49 Hgb 12.0 Hct 36.1 MCV 80.4 MCH 26.7 MCHC 33.3 RDW 17.0 H Plt Count 239 MPV 9.4 Absolute Neuts (auto) 7.3 Neutrophils % 86.9 H Lymphocytes % 9.5 D Monocytes % 3.4 L Eosinophils % 0.0 D Basophils % 0.2 Nucleated RBC % 0 Sodium 137 Potassium 3.5 Chloride 106 Carbon Dioxide 25 Anion Gap 7 L BUN 8.6 Creatinine 0.3 L Est GFR (CKD-EPI)AfAm 170.72 Est GFR (CKD-EPI)NonAf 147.30 POC Glucometer 122 Random Glucose 120 H Calcium 7.3 L Magnesium 1.8 Total Bilirubin 0.4 Direct Bilirubin AST 14 L ALT 15 Alkaline Phosphatase 73 Total Protein 4.7 L Albumin 1.9 L Triglycerides 457 H 09/05/19 09/05/19 06:11 09:39 WBC RBC Hgb Hct MCV MCH MCHC RDW Plt Count MPV Absolute Neuts (auto) Neutrophils % Lymphocytes % Monocytes % Eosinophils % Basophils % Nucleated RBC % Sodium Potassium Chloride Carbon Dioxide Anion Gap BUN Creatinine Est GFR (CKD-EPI)AfAm Est GFR (CKD-EPI)NonAf POC Glucometer 121 184 Random Glucose Calcium Magnesium Total Bilirubin Direct Bilirubin AST ALT Alkaline Phosphatase Total Protein Albumin Triglycerides Active Medications Generic Name Dose Route Start Last Admin Trade Name Freq PRN Reason Stop Dose Admin Acetaminophen 1,000 mg 09/04/19 11:10 09/05/19 10:22 Ofirmev Injection - IVPB 1,000 mg Q6H PRN Administration MILD PAIN Bisacodyl 10 mg 09/04/19 11:22 Dulcolax Suppository - [place] DAILY PRN CONSTIPATION Chlorhexidine Gluconate 1 applic 09/03/19 22:00 09/04/19 21:00 Hibiclens For Decolonization - TP 1 applic HS DEBBIE Administration Enoxaparin Sodium 40 mg 09/03/19 11:30 09/05/19 09:37 Lovenox - SQ 40 mg DAILY DEBBIE Administration Gemfibrozil 600 mg 09/05/19 16:30 Lopid - PO BID@0700,1630 DEBBIE Ceftriaxone Sodium 1 gm/ 50 mls @ 100 mls/hr 09/04/19 10:00 09/05/19 09:37 Dextrose IVPB 100 mls/hr DAILY DEBBIE Administration Protocol Dextrose/Lactated Ringer's 1,000 mls @ 200 mls/hr 09/04/19 10:15 09/05/19 10: 17 D5-Lr - IV 200 mls/hr ASDIR DEBBIE Administration Insulin Aspart 1 vial 09/05/19 11:00 Novolog Vial Sliding Scale - SQ ACHS DEBBIE Protocol Insulin Detemir 12 units 09/05/19 22:00 Levemir Vial SQ HS DEBBIE Morphine Sulfate 2 mg 09/04/19 08:03 09/05/19 10:23 Morphine Sulfate IVPUSH 2 mg Q4H PRN Administration PAIN LEVEL 6-10 Mupirocin 1 applic 09/03/19 22:00 09/05/19 09:37 Bactroban Ointment (For Decolonization) - NS 09/08/19 21:59 1 applic BID DEBBIE Administration Ondansetron HCl 4 mg 09/03/19 19:29 Zofran Injection IVPUSH Q4H PRN NAUSEA AND/OR VOMITING Pantoprazole Sodium 40 mg 09/03/19 22:00 09/05/19 09:37 Protonix Iv IVPUSH 40 mg BID DEBBIE Administration ASSESSMENT/PLAN: This is a 34 yo woman w hypertriglyceridemia confirmed to have acute pancreatitis. Endocrine -> HTGP -IV fluids: D5 LR, if hypoglycemic will give amp of D50 prn. -Q12h Trig serum - gemfibrozil 600 BID -possible familial history; pursue genetic testing -Pain control: Tylenol and Morphine 2Q4H - endo consult Dr. Rojo -Jennifer PRN for nausea -DVT prophylaxis lovenox 40SQ -GI prophylaxis 40BID protonix -novolog SS ID -> UTI - uncomplicated - UA Cx group B strep agalactiae and staph aureus - 1g Ceftriaxone IVPB daily - sheppard catheter F/E/N -IVF -diet advance as tolerated DVTppx: lovenox 40 QD Dispo: transfer to floor Larry Parrish MD PGY-1, Critical Care/ICU [phone] Visit type - Emergency Visit Emergency Visit: Yes ED Registration Date: 09/03/19 Care time: The patient presented to the Emergency Department on the above date and was hospitalized for further evaluation of their emergent condition. - New Patient This patient is new to me today: No - Critical Care Critical Care patient: Yes Total Critical Care Time (in minutes): 35 Critical Care Statement: The care of this patient involved high complexity decision making to prevent further life threatening deterioration of the patient 's condition and/or to evaluate & treat vital organ system(s) failure or risk of failure. ATTENDING PHYSICIAN STATEMENT I saw and evaluated the patient. I reviewed the resident's note and discussed the case with the resident. I agree with the resident's findings and plan as documented. SUBJECTIVE: OBJECTIVE: ASSESSMENT AND PLAN:
[2019-09-05] MEDS ORDERED: INSULIN SLIDING SCALE (NOVOLOG) 1 VIAL SQ SCH (11:00)
--- NOTE | 2019-09-05 11:13 | PN ---
Teaching Attending Note Name of Resident: Larry Parrish ATTENDING PHYSICIAN STATEMENT I saw and evaluated the patient. I reviewed the resident's note and discussed the case with the resident. I agree with the resident's findings and plan as documented. SUBJECTIVE: Patient seen and examined in the ICU. Awake and alert. Still with mild discomfort due to abdominal pain. Remains on IV Insulin. No CP or SOB. Intake & Output 09/02/19 09/03/19 09/04/19 09/05/19 23:59 23:59 23:59 23:59 Intake Total 1286 2570.2 Output Total 600 500 Balance 1286 -600 2070.2 Weight 145 lb 121 lb 12.8 oz Last Vital Signs Temp Pulse Resp BP Pulse Ox 98.8 F 123 H 32 H 114/80 98 09/05/19 10:00 09/05/19 10:00 09/05/19 10:00 09/05/19 10:00 09/05/19 07:59 Active Medications Acetaminophen (Ofirmev Injection -) 1,000 mg IVPB Q6H PRN PRN Reason: MILD PAIN Last Admin: 09/05/19 10:22 Dose: 1,000 mg Bisacodyl (Dulcolax Suppository -) 10 mg [place] DAILY PRN PRN Reason: CONSTIPATION Chlorhexidine Gluconate (Hibiclens For Decolonization -) 1 applic TP HS [facility] Last Admin: 09/04/19 21:00 Dose: 1 applic Enoxaparin Sodium (Lovenox -) 40 mg SQ DAILY DEBBIE Last Admin: 09/05/19 09:37 Dose: 40 mg Gemfibrozil (Lopid -) 600 mg PO BID@0700,1630 [facility] Ceftriaxone Sodium 1 gm/ (Dextrose) 50 mls @ 100 mls/hr IVPB DAILY DEBBIE; Protocol Last Admin: 09/05/19 09:37 Dose: 100 mls/hr Dextrose/Lactated Ringer's (D5-Lr -) 1,000 mls @ 200 mls/hr IV ASDIR DEBBIE Last Admin: 09/05/19 10:17 Dose: 200 mls/hr Insulin Aspart (Novolog Vial Sliding Scale -) 1 vial SQ ACHS [facility]; Protocol Insulin Detemir (Levemir Vial) 12 units SQ HS DEBBIE Morphine Sulfate (Morphine Sulfate) 2 mg IVPUSH Q4H PRN PRN Reason: PAIN LEVEL 6-10 Last Admin: 09/05/19 10:23 Dose: 2 mg Mupirocin (Bactroban Ointment (For Decolonization) -) 1 applic NS BID [facility] Stop: 09/08/19 21:59 Last Admin: 09/05/19 09:37 Dose: 1 applic Ondansetron HCl (Zofran Injection) 4 mg IVPUSH Q4H PRN PRN Reason: NAUSEA AND/OR VOMITING Pantoprazole Sodium (Protonix Iv) 40 mg IVPUSH BID [facility] Last Admin: 09/05/19 09:37 Dose: 40 mg Constitutional: Yes: Mild distress due to pain Eyes: Yes: EOM Intact HENT: Yes: Normocephalic Neck: Yes: Trachea Midline Cardiovascular: Yes: Regular Rate and Rhythm, S1, S2 Respiratory: Yes: CTA Bilaterally Gastrointestinal: Yes: Soft, Abdomen, Obese, (+) diffuse mild tenderness, (-) guarding / rebound Extremities: Yes: WNL Edema: No Neurological: Yes: Alert, Oriented ...Motor Strength: WNL Labs: Laboratory Results - last 24 hr 09/04/19 09/04/19 09/04/19 11:27 12:43 14:22 WBC RBC Hgb Hct MCV MCH MCHC RDW Plt Count MPV Absolute Neuts (auto) Neutrophils % Lymphocytes % Monocytes % Eosinophils % Basophils % Nucleated RBC % Sodium Potassium Chloride Carbon Dioxide Anion Gap BUN Creatinine Est GFR (CKD-EPI)AfAm Est GFR (CKD-EPI)NonAf POC Glucometer 192 210 206 Random Glucose Calcium Magnesium Total Bilirubin Direct Bilirubin AST ALT Alkaline Phosphatase Total Protein Albumin Triglycerides 09/04/19 09/04/19 09/04/19 16:00 17:03 18:00 WBC RBC Hgb Hct MCV MCH MCHC RDW Plt Count MPV Absolute Neuts (auto) Neutrophils % Lymphocytes % Monocytes % Eosinophils % Basophils % Nucleated RBC % Sodium 134 L Potassium 3.5 Chloride 103 Carbon Dioxide 22 Anion Gap 9 BUN 7.0 Creatinine 0.4 L Est GFR (CKD-EPI)AfAm 155.30 Est GFR (CKD-EPI)NonAf 134.00 POC Glucometer 166 141 Random Glucose 127 H Calcium 7.3 L Magnesium Total Bilirubin Direct Bilirubin AST ALT Alkaline Phosphatase Total Protein Albumin Triglycerides 09/04/19 09/04/19 09/04/19 18:00 18:00 18:07 WBC RBC Hgb Hct MCV MCH MCHC RDW Plt Count MPV Absolute Neuts (auto) Neutrophils % Lymphocytes % Monocytes % Eosinophils % Basophils % Nucleated RBC % Sodium Potassium Chloride Carbon Dioxide Anion Gap BUN Creatinine Est GFR (CKD-EPI)AfAm Est GFR (CKD-EPI)NonAf POC Glucometer 134 Random Glucose Calcium Magnesium Total Bilirubin 0.5 Direct Bilirubin 0.1 AST 13 L ALT 19 Alkaline Phosphatase 76 Total Protein 5.1 L Albumin 2.2 L Triglycerides 570 H 09/04/19 09/04/19 09/04/19 19:03 20:05 21:22 WBC RBC Hgb Hct MCV MCH MCHC RDW Plt Count MPV Absolute Neuts (auto) Neutrophils % Lymphocytes % Monocytes % Eosinophils % Basophils % Nucleated RBC % Sodium Potassium Chloride Carbon Dioxide Anion Gap BUN Creatinine Est GFR (CKD-EPI)AfAm Est GFR (CKD-EPI)NonAf POC Glucometer 138 133 136 Random Glucose Calcium Magnesium Total Bilirubin Direct Bilirubin AST ALT Alkaline Phosphatase Total Protein Albumin Triglycerides 09/04/19 09/04/19 09/05/19 22:18 23:32 00:54 WBC RBC Hgb Hct MCV MCH MCHC RDW Plt Count MPV Absolute Neuts (auto) Neutrophils % Lymphocytes % Monocytes % Eosinophils % Basophils % Nucleated RBC % Sodium Potassium Chloride Carbon Dioxide Anion Gap BUN Creatinine Est GFR (CKD-EPI)AfAm Est GFR (CKD-EPI)NonAf POC Glucometer 129 126 132 Random Glucose Calcium Magnesium Total Bilirubin Direct Bilirubin AST ALT Alkaline Phosphatase Total Protein Albumin Triglycerides 09/05/19 09/05/19 09/05/19 01:49 02:48 03:52 WBC RBC Hgb Hct MCV MCH MCHC RDW Plt Count MPV Absolute Neuts (auto) Neutrophils % Lymphocytes % Monocytes % Eosinophils % Basophils % Nucleated RBC % Sodium Potassium Chloride Carbon Dioxide Anion Gap BUN Creatinine Est GFR (CKD-EPI)AfAm Est GFR (CKD-EPI)NonAf POC Glucometer 173 114 101 Random Glucose Calcium Magnesium Total Bilirubin Direct Bilirubin AST ALT Alkaline Phosphatase Total Protein Albumin Triglycerides 09/05/19 09/05/19 09/05/19 05:18 05:59 05:59 WBC 8.4 RBC 4.49 Hgb 12.0 Hct 36.1 MCV 80.4 MCH 26.7 MCHC 33.3 RDW 17.0 H Plt Count 239 MPV 9.4 Absolute Neuts (auto) 7.3 Neutrophils % 86.9 H Lymphocytes % 9.5 D Monocytes % 3.4 L Eosinophils % 0.0 D Basophils % 0.2 Nucleated RBC % 0 Sodium 137 Potassium 3.5 Chloride 106 Carbon Dioxide 25 Anion Gap 7 L BUN 8.6 Creatinine 0.3 L Est GFR (CKD-EPI)AfAm 170.72 Est GFR (CKD-EPI)NonAf 147.30 POC Glucometer 122 Random Glucose 120 H Calcium 7.3 L Magnesium 1.8 Total Bilirubin 0.4 Direct Bilirubin AST 14 L ALT 15 Alkaline Phosphatase 73 Total Protein 4.7 L Albumin 1.9 L Triglycerides 457 H 09/05/19 09/05/19 06:11 09:39 WBC RBC Hgb Hct MCV MCH MCHC RDW Plt Count MPV Absolute Neuts (auto) Neutrophils % Lymphocytes % Monocytes % Eosinophils % Basophils % Nucleated RBC % Sodium Potassium Chloride Carbon Dioxide Anion Gap BUN Creatinine Est GFR (CKD-EPI)AfAm Est GFR (CKD-EPI)NonAf POC Glucometer 121 184 Random Glucose Calcium Magnesium Total Bilirubin Direct Bilirubin AST ALT Alkaline Phosphatase Total Protein Albumin Triglycerides Problem List - Problems (1) Pancreatitis Code(s): K85.90 - ACUTE PANCREATITIS WITHOUT NECROSIS OR INFECTION, UNSP Qualifiers: Chronicity: acute Pancreatitis type: unspecified pancreatitis type Acute pancreatitis complication: unspecified Qualified Code(s): K85.90 - Acute pancreatitis without necrosis or infection, unspecified Assessment/Plan Acute Pancreatitis due to Hypertriglyceridemia Hyperglycemia Attempt transition to SQ Insulin coverage IVF Follow serum Triglycerides NPO for now, hope to initiate feeds when pain is better Fenofibrate Pain control with Morphine sulfate VTE prophyalxis Requires ICU monitoring for insulin drip Dr Mcneal Critical care time spent in reviewing chart, evaluating patient and formulating plan - 36 minutes.
--- NOTE | 2019-09-05 12:23 | CONSULT ---
Consult Consult Specialty:: Endocrinology Reason for Consultation:: Hypertriglyceridemia - History of Present Illness Chief Complaint: Abd Pain History of Present Illness: This is a 34 y/o F with h/o GDM treated with Insulin in 2018 BIBA after being awoken at ~0200 with severe upper abd pain radiating to the back w/a chills, sweating, nausea, vomiting(yellow and food-like). Denies having similiar pain in the past. Pain improved after StJ-ED administration of ofirmev and morphine. No personal history of TB or contact with other that have had TB. LMP started ~ 6d prior to presentation. In the ED Lipase [id number] and Trig was 2961> Pt was diagnosed with pancreatitis sec to Hypertriglyceridemia. Treated with IV insulin and D5 with improvement in symptoms and decrease of Trig to 457. Gives history of high cholesterol in sister who was admitted for similar problem in the past and ? has Apharesis. - History Source History Provided By: Patient, Medical Record - Past Medical History ...: No Endocrine: Yes: Other (HLD) - Past Surgical History Past Surgical History: Yes: - Alcohol/Substance Use Hx Alcohol Use: No - Smoking History Smoking history: Never smoked Have you smoked in the past 12 months: No Home Medications - Allergies Allergies/Adverse Reactions: Allergies Allergy/AdvReac Type Severity Reaction Status Date / Time No Known Drug Allergies Allergy Verified 09/03/19 06:07 - Home Medications Home Medications: Ambulatory Orders NK [No Known Home Medication] 09/03/19 Family Medical History Family Hx Diabetes: Father Other Family History: Sister and Father has Hyperlipidemia. Review of Systems - Review of Systems Constitutional: reports: Malaise Eyes: reports: No Symptoms HENT: reports: No Symptoms Neck: reports: No Symptoms Cardiovascular: reports: No Symptoms Respiratory: reports: No Symptoms Gastrointestinal: reports: Abdominal Pain Genitourinary: reports: No Symptoms Breasts: reports: No Symptoms Reported Musculoskeletal: reports: No Symptoms Integumentary: reports: No Symptoms Neurological: reports: No Symptoms Endocrine: reports: No Symptoms Physical Exam Vital Signs: Vital Signs Temperature 98.8 F 09/05/19 10:00 Pulse Rate 112 H 09/05/19 12:00 Respiratory Rate 24 H 09/05/19 12:00 Blood Pressure 116/79 09/05/19 12:00 O2 Sat by Pulse Oximetry (%) 98 09/05/19 07:59 Labs: CBC, BMP 09/05/19 05:59 09/05/19 05:59 Assessment/Plan Ap: Acute Pancreatitis due to Hypertriglyceridemia H/O GDM/Hyperglycemia Monitor serum Triglycerides Monitor BGM NPO for now, Gemfibrozil 600mg BID once ok to give oral meds as per GI Attempt transition to SQ Insulin coverage Continue IVF with D5 until pt is able to tolerate full diet. Adjust rate to maintain blood sugar 120 to 180. Pain control with Morphine sulfate Nutrition consult
[2019-09-05] MEDS ORDERED: FENOFIBRIC ACID 45 MG CAP PO SCH (12:30)
[2019-09-05] MEDS: INSULIN SLIDING SCALE (NOVOLOG) 1 VIAL SQ SCH ×2 (13:10→18:03)
--- NOTE | 2019-09-05 15:58 | PN ---
Teaching Attending Note Name of Resident: Mehran Benoit ATTENDING PHYSICIAN STATEMENT I saw and evaluated the patient. I reviewed the resident's note and discussed the case with the resident. I agree with the resident's findings and plan as documented. SUBJECTIVE: Patient reports abdominal pain is much less severe. OBJECTIVE: Vital Signs Period Temp Pulse Resp BP Sys/Christensen Pulse Ox Last 24 Hr 98.1 F-99.9 F 112-125 20-35 105-129/73-88 96-98 HEART: S1S2, tachycardic LUNGS: Clear ABDOMEN: Soft, non-distended, (+) mild epigastric tenderness, normal BS EXTREMITIES: No edema Laboratory Results - last 24 hr 09/04/19 09/04/19 09/04/19 16:00 17:03 18:00 WBC RBC Hgb Hct MCV MCH MCHC RDW Plt Count MPV Absolute Neuts (auto) Neutrophils % Lymphocytes % Monocytes % Eosinophils % Basophils % Nucleated RBC % Sodium 134 L Potassium 3.5 Chloride 103 Carbon Dioxide 22 Anion Gap 9 BUN 7.0 Creatinine 0.4 L Est GFR (CKD-EPI)AfAm 155.30 Est GFR (CKD-EPI)NonAf 134.00 POC Glucometer 166 141 Random Glucose 127 H Calcium 7.3 L Magnesium Total Bilirubin Direct Bilirubin AST ALT Alkaline Phosphatase Total Protein Albumin Triglycerides 09/04/19 09/04/19 09/04/19 18:00 18:00 18:07 WBC RBC Hgb Hct MCV MCH MCHC RDW Plt Count MPV Absolute Neuts (auto) Neutrophils % Lymphocytes % Monocytes % Eosinophils % Basophils % Nucleated RBC % Sodium Potassium Chloride Carbon Dioxide Anion Gap BUN Creatinine Est GFR (CKD-EPI)AfAm Est GFR (CKD-EPI)NonAf POC Glucometer 134 Random Glucose Calcium Magnesium Total Bilirubin 0.5 Direct Bilirubin 0.1 AST 13 L ALT 19 Alkaline Phosphatase 76 Total Protein 5.1 L Albumin 2.2 L Triglycerides 570 H 09/04/19 09/04/19 09/04/19 19:03 20:05 21:22 WBC RBC Hgb Hct MCV MCH MCHC RDW Plt Count MPV Absolute Neuts (auto) Neutrophils % Lymphocytes % Monocytes % Eosinophils % Basophils % Nucleated RBC % Sodium Potassium Chloride Carbon Dioxide Anion Gap BUN Creatinine Est GFR (CKD-EPI)AfAm Est GFR (CKD-EPI)NonAf POC Glucometer 138 133 136 Random Glucose Calcium Magnesium Total Bilirubin Direct Bilirubin AST ALT Alkaline Phosphatase Total Protein Albumin Triglycerides 09/04/19 09/04/19 09/05/19 22:18 23:32 00:54 WBC RBC Hgb Hct MCV MCH MCHC RDW Plt Count MPV Absolute Neuts (auto) Neutrophils % Lymphocytes % Monocytes % Eosinophils % Basophils % Nucleated RBC % Sodium Potassium Chloride Carbon Dioxide Anion Gap BUN Creatinine Est GFR (CKD-EPI)AfAm Est GFR (CKD-EPI)NonAf POC Glucometer 129 126 132 Random Glucose Calcium Magnesium Total Bilirubin Direct Bilirubin AST ALT Alkaline Phosphatase Total Protein Albumin Triglycerides 09/05/19 09/05/19 09/05/19 01:49 02:48 03:52 WBC RBC Hgb Hct MCV MCH MCHC RDW Plt Count MPV Absolute Neuts (auto) Neutrophils % Lymphocytes % Monocytes % Eosinophils % Basophils % Nucleated RBC % Sodium Potassium Chloride Carbon Dioxide Anion Gap BUN Creatinine Est GFR (CKD-EPI)AfAm Est GFR (CKD-EPI)NonAf POC Glucometer 173 114 101 Random Glucose Calcium Magnesium Total Bilirubin Direct Bilirubin AST ALT Alkaline Phosphatase Total Protein Albumin Triglycerides 09/05/19 09/05/19 09/05/19 05:18 05:59 05:59 WBC 8.4 RBC 4.49 Hgb 12.0 Hct 36.1 MCV 80.4 MCH 26.7 MCHC 33.3 RDW 17.0 H Plt Count 239 MPV 9.4 Absolute Neuts (auto) 7.3 Neutrophils % 86.9 H Lymphocytes % 9.5 D Monocytes % 3.4 L Eosinophils % 0.0 D Basophils % 0.2 Nucleated RBC % 0 Sodium 137 Potassium 3.5 Chloride 106 Carbon Dioxide 25 Anion Gap 7 L BUN 8.6 Creatinine 0.3 L Est GFR (CKD-EPI)AfAm 170.72 Est GFR (CKD-EPI)NonAf 147.30 POC Glucometer 122 Random Glucose 120 H Calcium 7.3 L Magnesium 1.8 Total Bilirubin 0.4 Direct Bilirubin AST 14 L ALT 15 Alkaline Phosphatase 73 Total Protein 4.7 L Albumin 1.9 L Triglycerides 457 H 09/05/19 09/05/19 09/05/19 06:11 09:39 11:39 WBC RBC Hgb Hct MCV MCH MCHC RDW Plt Count MPV Absolute Neuts (auto) Neutrophils % Lymphocytes % Monocytes % Eosinophils % Basophils % Nucleated RBC % Sodium Potassium Chloride Carbon Dioxide Anion Gap BUN Creatinine Est GFR (CKD-EPI)AfAm Est GFR (CKD-EPI)NonAf POC Glucometer 121 184 216 Random Glucose Calcium Magnesium Total Bilirubin Direct Bilirubin AST ALT Alkaline Phosphatase Total Protein Albumin Triglycerides Current Medications Generic Name Dose Route Start Last Admin Trade Name Freq PRN Reason Stop Dose Admin Acetaminophen 1,000 mg 09/04/19 11:10 09/05/19 10:22 Ofirmev Injection - IVPB 1,000 mg Q6H PRN Administration MILD PAIN Bisacodyl 10 mg 09/04/19 11:22 Dulcolax Suppository - [place] DAILY PRN CONSTIPATION Chlorhexidine Gluconate 1 applic 09/03/19 22:00 09/04/19 21:00 Hibiclens For Decolonization - TP 1 applic HS DEBBIE Administration Enoxaparin Sodium 40 mg 09/03/19 11:30 09/05/19 09:37 Lovenox - SQ 40 mg DAILY DEBBIE Administration Gemfibrozil 600 mg 09/05/19 16:30 Lopid - PO BID@0700,1630 DEBBIE Ceftriaxone Sodium 1 gm/ 50 mls @ 100 mls/hr 09/04/19 10:00 09/05/19 09:37 Dextrose IVPB 100 mls/hr DAILY DEBBIE Administration Protocol Dextrose/Lactated Ringer's 1,000 mls @ 200 mls/hr 09/04/19 10:15 09/05/19 10: 17 D5-Lr - IV 200 mls/hr ASDIR DEBBIE Administration Insulin Aspart 1 vial 09/05/19 12:30 09/05/19 13:10 Novolog Vial Sliding Scale - SQ Not Given Q6H [facility] Protocol Insulin Detemir 12 units 09/05/19 22:00 Levemir Vial SQ HS DEBBIE Morphine Sulfate 2 mg 09/04/19 08:03 09/05/19 10:23 Morphine Sulfate IVPUSH 2 mg Q4H PRN Administration PAIN LEVEL 6-10 Mupirocin 1 applic 09/03/19 22:00 09/05/19 09:37 Bactroban Ointment (For Decolonization) - NS 09/08/19 21:59 1 applic BID DEBBIE Administration Ondansetron HCl 4 mg 09/03/19 19:29 Zofran Injection IVPUSH Q4H PRN NAUSEA AND/OR VOMITING Pantoprazole Sodium 40 mg 09/03/19 22:00 09/05/19 09:37 Protonix Iv IVPUSH 40 mg BID DEBBIE Administration ASSESSMENT AND PLAN: This is a 34 year old woman with a history of gestational diabetes who presented to the ED with epigastric pain. 1. Acute pancreatitis secondary to hypertriglyceridemia - Clinically, pancreatitis is better - Triglycerides improved with regular insulin drip - Insulin drip discontinued - Lopid started - Continue NPO, IV fluid 2. Hypokalemia - Improved 3. Hypophosphatemia - Treated with K-Phos - Recheck phosphorus 4. Hypomagnesemia - Improved 5. Type 2 DM, uncontrolled - HbA1c 10.9 - Insulin drip discontinued and Levemir, Novolog sliding scale being started 6. Pseudohyponatremia secondary to hyperglycemia - Improved 7. Leukocytosis - Likely reactive - Improved 8. Doubt UTI - Asymptomatic and UA negative for leukocyte esterase, negative for nitrite, 2+ WBC 9. DVT prophylaxis - On Lovenox 10. Stress ulcer prophylaxis - On Protonix
--- NOTE | 2019-09-05 17:29 | PN ---
Physical Exam: SUBJECTIVE: Patient seen and examined OBJECTIVE: Vital Signs Period Temp Pulse Resp BP Sys/Christensen Pulse Ox Last 24 Hr 98.1 F-99.9 F 112-125 20-35 113-129/73-88 96-98 GENERAL: Awake, alert, and fully oriented, in no acute distress. HEAD: Normal with no signs of trauma. No temporal wasting EYES: Pupils equal, round and reactive to light, extraocular movements intact, sclera anicteric, conjunctiva clear. EARS, NOSE, THROAT: oropharynx clear without exudates. Moist mucous membranes. NECK: Normal range of motion, supple without lymphadenopathy, JVD, or masses. LUNGS: Breath sounds equal, clear to auscultation bilaterally. No wheezes, and no crackles. No accessory muscle use. HEART: Regular rate and rhythm, normal S1 and S2 without murmur, rub or gallop. ABDOMEN: Soft, mildly distended, normoactive bowel sounds, no guarding, no rebound. Tenderness with deep palpitation of the epigastrium. Neg CVA MUSCULOSKELETAL: Normal range of motion at all joints. No bony deformities or tenderness. UPPER EXTREMITIES: 2+ pulses, warm, well-perfused. No cyanosis. No clubbing. No peripheral edema. LOWER EXTREMITIES: 2+ pulses, warm, well-perfused. No calf tenderness. No peripheral edema. NEUROLOGICAL: Normal speech. SKIN: Warm, dry, normal turgor, no rashes or lesions noted, normal capillary refill. Laboratory Results - last 24 hr 09/04/19 09/04/19 09/04/19 18:00 18:00 18:00 WBC RBC Hgb Hct MCV MCH MCHC RDW Plt Count MPV Absolute Neuts (auto) Neutrophils % Lymphocytes % Monocytes % Eosinophils % Basophils % Nucleated RBC % Sodium 134 L Potassium 3.5 Chloride 103 Carbon Dioxide 22 Anion Gap 9 BUN 7.0 Creatinine 0.4 L Est GFR (CKD-EPI)AfAm 155.30 Est GFR (CKD-EPI)NonAf 134.00 POC Glucometer Random Glucose 127 H Calcium 7.3 L Magnesium Total Bilirubin 0.5 Direct Bilirubin 0.1 AST 13 L ALT 19 Alkaline Phosphatase 76 Total Protein 5.1 L Albumin 2.2 L Triglycerides 570 H 09/04/19 09/04/19 09/04/19 18:07 19:03 20:05 WBC RBC Hgb Hct MCV MCH MCHC RDW Plt Count MPV Absolute Neuts (auto) Neutrophils % Lymphocytes % Monocytes % Eosinophils % Basophils % Nucleated RBC % Sodium Potassium Chloride Carbon Dioxide Anion Gap BUN Creatinine Est GFR (CKD-EPI)AfAm Est GFR (CKD-EPI)NonAf POC Glucometer 134 138 133 Random Glucose Calcium Magnesium Total Bilirubin Direct Bilirubin AST ALT Alkaline Phosphatase Total Protein Albumin Triglycerides 09/04/19 09/04/19 09/04/19 21:22 22:18 23:32 WBC RBC Hgb Hct MCV MCH MCHC RDW Plt Count MPV Absolute Neuts (auto) Neutrophils % Lymphocytes % Monocytes % Eosinophils % Basophils % Nucleated RBC % Sodium Potassium Chloride Carbon Dioxide Anion Gap BUN Creatinine Est GFR (CKD-EPI)AfAm Est GFR (CKD-EPI)NonAf POC Glucometer 136 129 126 Random Glucose Calcium Magnesium Total Bilirubin Direct Bilirubin AST ALT Alkaline Phosphatase Total Protein Albumin Triglycerides 09/05/19 09/05/19 09/05/19 00:54 01:49 02:48 WBC RBC Hgb Hct MCV MCH MCHC RDW Plt Count MPV Absolute Neuts (auto) Neutrophils % Lymphocytes % Monocytes % Eosinophils % Basophils % Nucleated RBC % Sodium Potassium Chloride Carbon Dioxide Anion Gap BUN Creatinine Est GFR (CKD-EPI)AfAm Est GFR (CKD-EPI)NonAf POC Glucometer 132 173 114 Random Glucose Calcium Magnesium Total Bilirubin Direct Bilirubin AST ALT Alkaline Phosphatase Total Protein Albumin Triglycerides 09/05/19 09/05/19 09/05/19 03:52 05:18 05:59 WBC 8.4 RBC 4.49 Hgb 12.0 Hct 36.1 MCV 80.4 MCH 26.7 MCHC 33.3 RDW 17.0 H Plt Count 239 MPV 9.4 Absolute Neuts (auto) 7.3 Neutrophils % 86.9 H Lymphocytes % 9.5 D Monocytes % 3.4 L Eosinophils % 0.0 D Basophils % 0.2 Nucleated RBC % 0 Sodium Potassium Chloride Carbon Dioxide Anion Gap BUN Creatinine Est GFR (CKD-EPI)AfAm Est GFR (CKD-EPI)NonAf POC Glucometer 101 122 Random Glucose Calcium Magnesium Total Bilirubin Direct Bilirubin AST ALT Alkaline Phosphatase Total Protein Albumin Triglycerides 09/05/19 09/05/19 09/05/19 05:59 06:11 09:39 WBC RBC Hgb Hct MCV MCH MCHC RDW Plt Count MPV Absolute Neuts (auto) Neutrophils % Lymphocytes % Monocytes % Eosinophils % Basophils % Nucleated RBC % Sodium 137 Potassium 3.5 Chloride 106 Carbon Dioxide 25 Anion Gap 7 L BUN 8.6 Creatinine 0.3 L Est GFR (CKD-EPI)AfAm 170.72 Est GFR (CKD-EPI)NonAf 147.30 POC Glucometer 121 184 Random Glucose 120 H Calcium 7.3 L Magnesium 1.8 Total Bilirubin 0.4 Direct Bilirubin AST 14 L ALT 15 Alkaline Phosphatase 73 Total Protein 4.7 L Albumin 1.9 L Triglycerides 457 H 09/05/19 11:39 WBC RBC Hgb Hct MCV MCH MCHC RDW Plt Count MPV Absolute Neuts (auto) Neutrophils % Lymphocytes % Monocytes % Eosinophils % Basophils % Nucleated RBC % Sodium Potassium Chloride Carbon Dioxide Anion Gap BUN Creatinine Est GFR (CKD-EPI)AfAm Est GFR (CKD-EPI)NonAf POC Glucometer 216 Random Glucose Calcium Magnesium Total Bilirubin Direct Bilirubin AST ALT Alkaline Phosphatase Total Protein Albumin Triglycerides Active Medications Generic Name Dose Route Start Last Admin Trade Name Freq PRN Reason Stop Dose Admin Acetaminophen 1,000 mg 09/04/19 11:10 09/05/19 10:22 Ofirmev Injection - IVPB 1,000 mg Q6H PRN Administration MILD PAIN Bisacodyl 10 mg 09/04/19 11:22 Dulcolax Suppository - [place] DAILY PRN CONSTIPATION Chlorhexidine Gluconate 1 applic 09/03/19 22:00 09/04/19 21:00 Hibiclens For Decolonization - TP 1 applic HS DEBBIE Administration Enoxaparin Sodium 40 mg 09/03/19 11:30 09/05/19 09:37 Lovenox - SQ 40 mg DAILY DEBBIE Administration Gemfibrozil 600 mg 09/05/19 16:30 Lopid - PO BID@0700,1630 DEBBIE Ceftriaxone Sodium 1 gm/ 50 mls @ 100 mls/hr 09/04/19 10:00 09/05/19 09:37 Dextrose IVPB 100 mls/hr DAILY DEBBIE Administration Protocol Dextrose/Lactated Ringer's 1,000 mls @ 200 mls/hr 09/04/19 10:15 09/05/19 10: 17 D5-Lr - IV 200 mls/hr ASDIR DEBBIE Administration Insulin Aspart 1 vial 09/05/19 12:30 09/05/19 13:10 Novolog Vial Sliding Scale - SQ Not Given Q6H [facility] Protocol Insulin Detemir 12 units 09/05/19 22:00 Levemir Vial SQ HS DEBBIE Morphine Sulfate 2 mg 09/04/19 08:03 09/05/19 10:23 Morphine Sulfate IVPUSH 2 mg Q4H PRN Administration PAIN LEVEL 6-10 Mupirocin 1 applic 09/03/19 22:00 09/05/19 09:37 Bactroban Ointment (For Decolonization) - NS 09/08/19 21:59 1 applic BID DEBBIE Administration Ondansetron HCl 4 mg 09/03/19 19:29 Zofran Injection IVPUSH Q4H PRN NAUSEA AND/OR VOMITING Pantoprazole Sodium 40 mg 09/03/19 22:00 09/05/19 09:37 Protonix Iv IVPUSH 40 mg BID DEBBIE Administration Vital Signs Temp 98.8 F 09/05/19 10:00 Pulse 113 H 09/05/19 14:00 Resp 24 H 09/05/19 14:00 BP 129/88 09/05/19 14:00 Pulse Ox 98 09/05/19 07:59 Intake & Output 09/04/19 09/05/19 09/05/19 23:59 11:59 23:59 Intake Total 2570.2 Output Total 400 500 Balance -400 2070.2 Weight 55.248 kg Intake: IV 2470.2 D5-Lr - 1,000 ml @ 200 2400 mls/hr IV ASDIR DEBBIE Rx#: [id number] NOVOLIN R VIAL *For 70.2 IVPUSH or IV DRIP Only* 100 UNITS In Normal Saline - 99 ml @ 0.1 UNITS/KG/HR 6.57 mls/hr IVPB TITR DEBBIE Rx#: [id number] IVPB 100 Output: Urine 400 500 Will 400 500 Other: Voiding Method Indwelling Catheter Indwelling Catheter Bowel Movement No Weight Measurement Method [facility] ASSESSMENT/PLAN: 34F w/ pmh of gestational diabetes(2018, that pt states resolved) presenting with severe epigastric abdominal pain, lipase 4937, triglycerides 2961, suggestive of acute pancreatitis 2/2 hypertriglyceridemia #continued abd pain w/ abd distention -fu CT A/P(09/05/19) -- read pending #acute pancreatitis 2/2 hypertriglyceridemia >RUQ US: fatty liver, GB w/o stones or wall thickening >lipase 4937 >triglycerides 2961 --> 1167 -insulin gtt dc'd -levemir 12U QHS, ISS q6h -gemfibrozil 600mg BID -mIVF -NPO --dc'd -pain control: morphine 2mg q6h PRN -insulin gtt #nausea -ondansetron -pantoprazole #UTI >UA: (-)LE, (-)nitrite, (4+)ketones >UCX: strept Agalactiae Group B -ceftriaxone #Diabetes >blood sugar 297 >HbA1c ~10.9 -ISS q6h #hypokalemia -replete PRN #leukocytosis -- improving >CXR: possible RUL granuloma >WBC 14.6(neutrophils 90.5%) -->10.5--> 8.4 #DVT prophylaxis -lovenox #FEN -NPO -IVF: D5LR @200 #Dispo: -downgrade from ICU -ICU for q1h glucose checks, insulin gtt Visit type - Emergency Visit Emergency Visit: No - New Patient This patient is new to me today: No - Critical Care Critical Care patient: No ATTENDING PHYSICIAN STATEMENT I saw and evaluated the patient. I reviewed the resident's note and discussed the case with the resident. I agree with the resident's findings and plan as documented. SUBJECTIVE: OBJECTIVE: ASSESSMENT AND PLAN:
[2019-09-05] MEDS: GEMFIBROZIL 600 MG TABLET (FP) PO SCH (17:42)
[2019-09-05] MEDS ORDERED: INSULIN (LEVEMIR) 100 UNITS/ML UNITS SQ SCH (22:00)
[2019-09-05] MEDS: CHLORHEXIDINE GLUCONATE 4% CLEANSER FOR DECOLONIZATION TP SCH (22:48)
[2019-09-05] MEDS ORDERED: DEXTROSE 5%-LACTATED RINGERS 1,000 ML IV SCH (22:56)
[2019-09-06] MEDS ORDERED: DEXTROSE 5%-LACTATED RINGERS 1,000 ML IV SCH ×2 (01:27→14:23)
[2019-09-06] MEDS: INSULIN SLIDING SCALE (NOVOLOG) 1 VIAL SQ SCH ×6 (01:45→23:47)
[2019-09-06] MEDS ORDERED: ACETAMINOPHEN 1000 MG/100 ML VIAL (NON FORMULARY) IVPB ONE (02:23)
[2019-09-06] MEDS: MORPHINE SULFATE 2 MG/ML VIAL IVPUSH PRN ×4 (02:36→22:33)
[2019-09-06] MEDS: GEMFIBROZIL 600 MG TABLET (FP) PO SCH ×2 (06:04→17:26)
[2019-09-06 07:13] LABS: ALBUMIN 1.9 g/dl (3.4-5.0); BILIRUBIN,TOTAL 0.5 mg/dL (0.2-1); BLOOD UREA NITROGEN 4.8 mg/dL (7-18); CALCIUM 7.4 mg/dL (8.5-10.1); CREATININE 0.3 mg/dL (0.55-1.3); PHOSPHOROUS 2.5 mg/dL (2.5-4.9); POTASSIUM 3.5 mmol/L (3.5-5.1); TOT PROT 4.8 g/dl (6.4-8.2)
--- NOTE | 2019-09-06 09:15 | PN ---
Progress Note (short form) - Note Progress Note: Feels better Mild abd pain Vital Signs Period Temp Pulse Resp BP Sys/Christensen Pulse Ox Last 24 Hr 98.4 F-99.9 F 101-123 21-96 109-129/72-88 94-94 PE: AOx3 Neck: Supple HEENT: EOMI, Lungs: CTA CVS: S1S2 Abd: BS sluggish Ext: No edema Neuro: No focal deficit CMP Sodium 138 mmol/L (136-145) 09/06/19 05:30 Potassium 3.5 mmol/L (3.5-5.1) 09/06/19 05:30 Chloride 104 mmol/L (98-107) 09/06/19 05:30 Carbon Dioxide 27 mmol/L (21-32) 09/06/19 05:30 Anion Gap 7 MMOL/L (8-16) L 09/06/19 05:30 BUN 4.8 mg/dL (7-18) L 09/06/19 05:30 Creatinine 0.3 mg/dL (0.55-1.3) L 09/06/19 05:30 Est GFR (CKD-EPI)AfAm 170.72 09/06/19 05:30 Est GFR (CKD-EPI)NonAf 147.30 09/06/19 05:30 POC Glucometer 169 UNITS (80-120) 09/06/19 05:28 Random Glucose 171 mg/dL (74-106) H 09/06/19 05:30 Hemoglobin A1c % 10.9 % (4.2-6.3) H 09/03/19 10:00 Lactic Acid 1.0 mmol/L (0.4-2.0) 09/04/19 08:45 Calcium 7.4 mg/dL (8.5-10.1) L 09/06/19 05:30 Phosphorus 2.5 mg/dL (2.5-4.9) 09/06/19 05:30 Magnesium 2.0 mg/dL (1.8-2.4) 09/06/19 05:30 Total Bilirubin 0.5 mg/dL (0.2-1) 09/06/19 05:30 Direct Bilirubin 0.1 mg/dL (0.0-0.2) 09/04/19 18:00 AST 11 U/L (15-37) L 09/06/19 05:30 ALT 13 U/L (13-61) 09/06/19 05:30 Alkaline Phosphatase 80 U/L (45-117) 09/06/19 05:30 Total Protein 4.8 g/dl (6.4-8.2) L 09/06/19 05:30 Albumin 1.9 g/dl (3.4-5.0) L 09/06/19 05:30 Triglycerides 457 mg/dL (0-150) H 09/05/19 05:59 Cholesterol 363 mg/dL (50-200) H 09/03/19 07:54 Total LDL Cholesterol 111 mg/dL (5-100) H 09/03/19 07:54 HDL Cholesterol 25 mg/dL (40-60) L 09/03/19 07:54 Lipase 1765 U/L (73-393) H 09/04/19 05:20 Current Medications Generic Name Dose Route Start Last Admin Trade Name Freq PRN Reason Stop Dose Admin Bisacodyl 10 mg 09/04/19 11:22 09/05/19 19:44 Dulcolax Suppository - [place] 10 mg DAILY PRN Administration CONSTIPATION Chlorhexidine Gluconate 1 applic 09/03/19 22:00 09/05/19 22:48 Hibiclens For Decolonization - TP 1 applic HS DEBBIE Administration Enoxaparin Sodium 40 mg 09/03/19 11:30 09/05/19 09:37 Lovenox - SQ 40 mg DAILY DEBBIE Administration Gemfibrozil 600 mg 09/05/19 16:30 09/06/19 06:04 Lopid - PO 600 mg BID@0700,1630 DEBBIE Administration Dextrose/Lactated Ringer's 1,000 mls @ 100 mls/hr 09/06/19 01:27 09/06/19 01: 25 D5-Lr - IV 100 mls/hr ASDIR DEBBIE Administration Insulin Aspart 1 vial 09/05/19 12:30 09/06/19 05:29 Novolog Vial Sliding Scale - SQ 2 units Q6H DEBBIE Administration Protocol Insulin Detemir 12 units 09/05/19 22:00 09/05/19 22:48 Levemir Vial SQ 12 units HS DEBBIE Administration Morphine Sulfate 2 mg 09/04/19 08:03 09/06/19 02:36 Morphine Sulfate IVPUSH 2 mg Q4H PRN Administration PAIN LEVEL 6-10 Mupirocin 1 applic 09/03/19 22:00 09/05/19 22:48 Bactroban Ointment (For Decolonization) - NS 09/08/19 21:59 1 applic BID DEBBIE Administration Ondansetron HCl 4 mg 09/03/19 19:29 Zofran Injection IVPUSH Q4H PRN NAUSEA AND/OR VOMITING Pantoprazole Sodium 40 mg 09/03/19 22:00 09/05/19 22:46 Protonix Iv IVPUSH 40 mg BID DEBBIE Administration Ap: Acute Pancreatitis due to Hypertriglyceridemia H/O GDM/Hyperglycemia Monitor serum Triglycerides Monitor BGM NPO for now, Gemfibrozil 600mg BID On SQ Insulin Continue IVF with D5 until pt is able to tolerate full diet. Adjust rate to maintain blood sugar 120 to 180. Pain control with Morphine sulfate Nutrition consult
[2019-09-06] MEDS: ENOXAPARIN NA (PORCINE) 40 MG/0.4 ML DISP.SYRIN SQ SCH (09:26)
[2019-09-06] MEDS: PANTOPRAZOLE SODIUM 40 MG VIAL IVPUSH SCH ×2 (09:27→22:10)
[2019-09-06] MEDS: MUPIROCIN 2% TOPICAL OINTMENT FOR DECOLONIZATION NS SCH (09:32)
--- NOTE | 2019-09-06 10:43 | PN ---
Physical Exam: SUBJECTIVE: Patient seen and examined at bedside. pt states she is having abdominal pain but denies n/v/d. pt states she is hungry. OBJECTIVE: Vital Signs Period Temp Pulse Resp BP Sys/Christensen Pulse Ox Last 24 Hr 98.4 F-99.9 F 100-123 21-96 109-129/72-88 94-94 GENERAL: The patient is awake, alert, and fully oriented, in no acute distress. LUNGS: Breath sounds equal, clear to auscultation bilaterally, no wheezes, no crackles, no accessory muscle use. HEART: Regular rate and rhythm, S1, S2 without murmur, rub or gallop. ABDOMEN: Soft, diffuse tenderness x 4 quadrants, nondistended, normoactive bowel sounds, no guarding EXTREMITIES: 2+ pulses, warm, well-perfused, no edema. SKIN: Warm, dry, normal turgor, no rashes or lesions noted Laboratory Results - last 24 hr 09/06/19 09/06/19 09/06/19 01:20 05:28 05:30 Sodium 138 Potassium 3.5 Chloride 104 Carbon Dioxide 27 Anion Gap 7 L BUN 4.8 L Creatinine 0.3 L Est GFR (CKD-EPI)AfAm 170.72 Est GFR (CKD-EPI)NonAf 147.30 POC Glucometer 209 169 Random Glucose 171 H Calcium 7.4 L Phosphorus 2.5 Magnesium 2.0 Total Bilirubin 0.5 AST 11 L ALT 13 Alkaline Phosphatase 80 Total Protein 4.8 L Albumin 1.9 L Current Medications Bisacodyl (Dulcolax Suppository -) 10 mg [place] DAILY PRN PRN Reason: CONSTIPATION Last Admin: 09/05/19 19:44 Dose: 10 mg Chlorhexidine Gluconate (Hibiclens For Decolonization -) 1 applic TP HS [facility] Last Admin: 09/05/19 22:48 Dose: 1 applic Enoxaparin Sodium (Lovenox -) 40 mg SQ DAILY [facility] Last Admin: 09/06/19 09:26 Dose: 40 mg Gemfibrozil (Lopid -) 600 mg PO BID@0700,1630 [facility] Last Admin: 09/06/19 06:04 Dose: 600 mg Dextrose/Lactated Ringer's (D5-Lr -) 1,000 mls @ 100 mls/hr IV ASDIR [facility] Last Admin: 09/06/19 01:25 Dose: 100 mls/hr Insulin Aspart (Novolog Vial Sliding Scale -) 1 vial SQ Q6H [facility]; Protocol Last Admin: 09/06/19 05:29 Dose: 2 units Insulin Detemir (Levemir Vial) 12 units SQ HS [facility] Last Admin: 09/05/19 22:48 Dose: 12 units Morphine Sulfate (Morphine Sulfate) 2 mg IVPUSH Q4H PRN PRN Reason: PAIN LEVEL 6-10 Last Admin: 09/06/19 02:36 Dose: 2 mg Mupirocin (Bactroban Ointment (For Decolonization) -) 1 applic NS BID [facility] Stop: 09/08/19 21:59 Last Admin: 09/06/19 09:32 Dose: 1 applic Ondansetron HCl (Zofran Injection) 4 mg IVPUSH Q4H PRN PRN Reason: NAUSEA AND/OR VOMITING Pantoprazole Sodium (Protonix Iv) 40 mg IVPUSH BID [facility] Last Admin: 09/06/19 09:27 Dose: 40 mg ASSESSMENT/PLAN: 34 yo F w/no significant PMH admitted to ICU for acute pancreatitis 2/2 hypertriglyceridemia. Endocrine : acute pancreatitis 2/2 hypertriglyceridemia -s/p insulin drip -last TG 457 -gemfibrozil 600 BID -Pain control w/ Tylenol -endo ( Dr. Rojo) recs appreciated -Zofran PRN for nausea Continue IVF with D5 until pt is able to tolerate full diet. Adjust rate to maintain blood sugar 120 to 180. ID : UTI - uncomplicated - UA Cx group B strep agalactiae and staph aureus - 1g Ceftriaxone IVPB daily DVT prophylaxis: lovenox 40SQ GI prophylaxis 40BID protonix F/E/N -NPO with early feeding when abd pain improves and pt can tolerate. Dispo: pt can be transferred to medicine Visit type - Emergency Visit Emergency Visit: No - New Patient This patient is new to me today: Yes Date on this admission: 09/06/19 - Critical Care Critical Care patient: Yes Total Critical Care Time (in minutes): 36 Critical Care Statement: The care of this patient involved high complexity decision making to prevent further life threatening deterioration of the patient 's condition and/or to evaluate & treat vital organ system(s) failure or risk of failure. ATTENDING PHYSICIAN STATEMENT I saw and evaluated the patient. I reviewed the resident's note and discussed the case with the resident. I agree with the resident's findings and plan as documented. SUBJECTIVE: OBJECTIVE: ASSESSMENT AND PLAN:
[2019-09-06 10:55] VITALS: BMI 23.6
--- NOTE | 2019-09-06 11:15 | PN ---
Teaching Attending Note Name of Resident: Ashley Benavides ATTENDING PHYSICIAN STATEMENT I saw and evaluated the patient. I reviewed the resident's note and discussed the case with the resident. I agree with the resident's findings and plan as documented. SUBJECTIVE: Pt seen and examined in the ICU. Still with abdominal pain but slightly better. OBJECTIVE: Vital Signs Period Temp Pulse Resp BP Sys/Christensen Pulse Ox Last 24 Hr 98.4 F-99.9 F 100-123 21-96 109-129/72-88 94-94 Intake & Output 09/03/19 09/04/19 09/05/19 09/06/19 23:59 23:59 23:59 23:59 Intake Total 1286 5070.2 1960 Output Total 600 1700 1100 Balance 1286 -600 3370.2 860 Weight 65.771 kg 55.248 kg 54.885 kg Gen: NAD at rest Heart: RRR Lung: decreased breath sounds at the bases Abd: soft, mild TTP, no rebound Ext: no edema CBC, BMP 09/05/19 05:59 09/06/19 05:30 Active Medications Bisacodyl (Dulcolax Suppository -) 10 mg [place] DAILY PRN PRN Reason: CONSTIPATION Last Admin: 09/05/19 19:44 Dose: 10 mg Chlorhexidine Gluconate (Hibiclens For Decolonization -) 1 applic TP HS [facility] Last Admin: 09/05/19 22:48 Dose: 1 applic Enoxaparin Sodium (Lovenox -) 40 mg SQ DAILY [facility] Last Admin: 09/06/19 09:26 Dose: 40 mg Gemfibrozil (Lopid -) 600 mg PO BID@0700,1630 [facility] Last Admin: 09/06/19 06:04 Dose: 600 mg Dextrose/Lactated Ringer's (D5-Lr -) 1,000 mls @ 100 mls/hr IV ASDIR [facility] Last Admin: 09/06/19 01:25 Dose: 100 mls/hr Insulin Aspart (Novolog Vial Sliding Scale -) 1 vial SQ Q6H [facility]; Protocol Last Admin: 09/06/19 05:29 Dose: 2 units Insulin Detemir (Levemir Vial) 12 units SQ HS [facility] Last Admin: 09/05/19 22:48 Dose: 12 units Morphine Sulfate (Morphine Sulfate) 2 mg IVPUSH Q4H PRN PRN Reason: PAIN LEVEL 6-10 Last Admin: 09/06/19 02:36 Dose: 2 mg Mupirocin (Bactroban Ointment (For Decolonization) -) 1 applic NS BID [facility] Stop: 09/08/19 21:59 Last Admin: 09/06/19 09:32 Dose: 1 applic Ondansetron HCl (Zofran Injection) 4 mg IVPUSH Q4H PRN PRN Reason: NAUSEA AND/OR VOMITING Pantoprazole Sodium (Protonix Iv) 40 mg IVPUSH BID [facility] Last Admin: 09/06/19 09:27 Dose: 40 mg ASSESSMENT AND PLAN: Acute Pancreatitis Hypertriglyceridemia Hyperglycemia UTI treated - continue IVF - lopid - monitor triglyceride level - pain control - consider GI eval - DVT prophylaxis - can monitor on floor
[2019-09-06] MEDS ORDERED: BISACODYL 10 MG SUPP.RECT PR PRN (14:23)
[2019-09-06] MEDS ORDERED: ONDANSETRON 4 MG/2 ML VIAL IVPUSH PRN (14:23)
--- NOTE | 2019-09-06 16:48 | PN ---
Physical Exam: SUBJECTIVE: Patient seen and examined. JF. Endorses improvement in abd pain, light yellow urine. Mild appetite OBJECTIVE: Vital Signs Period Temp Pulse Resp BP Sys/Christensen Pulse Ox Last 24 Hr 98.4 F-99.9 F 100-123 20-96 109-122/70-86 94-94 GENERAL: Awake, alert, and fully oriented, in no acute distress. HEAD: Normal with no signs of trauma. No temporal wasting EYES: Pupils equal, round and reactive to light, extraocular movements intact, sclera anicteric, conjunctiva clear. EARS, NOSE, THROAT: oropharynx clear without exudates. Moist mucous membranes. NECK: Normal range of motion, supple without lymphadenopathy, JVD, or masses. LUNGS: Breath sounds equal, clear to auscultation bilaterally. No wheezes, and no crackles. No accessory muscle use. HEART: Regular rate and rhythm, normal S1 and S2 without murmur, rub or gallop. ABDOMEN: Soft, mildly distended, normoactive bowel sounds, no guarding, no rebound. Tenderness with deep palpitation of the epigastrium. Neg CVA MUSCULOSKELETAL: Normal range of motion at all joints. No bony deformities or tenderness. UPPER EXTREMITIES: 2+ pulses, warm, well-perfused. No cyanosis. No clubbing. No peripheral edema. LOWER EXTREMITIES: 2+ pulses, warm, well-perfused. No calf tenderness. No peripheral edema. NEUROLOGICAL: Normal speech. SKIN: Warm, dry, normal turgor, no rashes or lesions noted, normal capillary refill. Laboratory Results - last 24 hr 09/05/19 09/05/19 09/06/19 17:57 22:52 01:20 Sodium Potassium Chloride Carbon Dioxide Anion Gap BUN Creatinine Est GFR (CKD-EPI)AfAm Est GFR (CKD-EPI)NonAf POC Glucometer 201 220 209 Random Glucose Calcium Phosphorus Magnesium Total Bilirubin AST ALT Alkaline Phosphatase Total Protein Albumin 09/06/19 09/06/19 05:28 05:30 Sodium 138 Potassium 3.5 Chloride 104 Carbon Dioxide 27 Anion Gap 7 L BUN 4.8 L Creatinine 0.3 L Est GFR (CKD-EPI)AfAm 170.72 Est GFR (CKD-EPI)NonAf 147.30 POC Glucometer 169 Random Glucose 171 H Calcium 7.4 L Phosphorus 2.5 Magnesium 2.0 Total Bilirubin 0.5 AST 11 L ALT 13 Alkaline Phosphatase 80 Total Protein 4.8 L Albumin 1.9 L Active Medications Generic Name Dose Route Start Last Admin Trade Name Freq PRN Reason Stop Dose Admin Bisacodyl 10 mg 09/06/19 14:23 Dulcolax Suppository - [place] DAILY PRN CONSTIPATION Enoxaparin Sodium 40 mg 09/07/19 10:00 Lovenox - SQ DAILY [facility] Gemfibrozil 600 mg 09/06/19 16:30 Lopid - PO BID@0700,1630 [facility] Dextrose/Lactated Ringer's 1,000 mls @ 100 mls/hr 09/06/19 14:23 D5-Lr - IV ASDIR [facility] Insulin Aspart 1 vial 09/06/19 18:30 Novolog Vial Sliding Scale - SQ Q6H [facility] Protocol Insulin Detemir 12 units 09/06/19 22:00 Levemir Vial SQ HS [facility] Morphine Sulfate 2 mg 09/06/19 14:23 Morphine Sulfate IVPUSH Q4H PRN PAIN LEVEL 6-10 Ondansetron HCl 4 mg 09/06/19 14:23 Zofran Injection IVPUSH Q4H PRN NAUSEA AND/OR VOMITING Pantoprazole Sodium 40 mg 09/06/19 22:00 Protonix Iv IVPUSH BID [facility] Vital Signs Temp 99.3 F 09/06/19 15:02 Pulse 106 H 09/06/19 15:02 Resp 20 09/06/19 15:02 BP 114/70 09/06/19 15:02 Pulse Ox 94 L 09/06/19 09:00 Intake & Output 09/05/19 09/06/19 09/06/19 23:59 11:59 23:59 Intake Total 2500 1960 Output Total 1200 1100 Balance 1300 860 Weight 54.885 kg Intake: IV 2400 1810 D5-Lr - 1,000 ml @ 100 1800 mls/hr IV [facility] Rx#: [id number] D5-Lr - 1,000 ml @ 200 2400 mls/hr IV ASDIR [facility] Rx#: [id number] Saline Lock 10 IVPB 100 100 Oral 50 Output: Urine 1200 1100 Will 1200 800 Void 300 Other: Voiding Method Indwelling Catheter Indwelling Catheter Bowel Movement No # Bowel Movements 1 Height 5 ft Body Mass Index (BMI) 23.6 ASSESSMENT/PLAN: 34F w/ pmh of gestational diabetes(2018, that pt states resolved) presenting with severe epigastric abdominal pain, lipase 4937, triglycerides 2961, suggestive of acute pancreatitis 2/2 hypertriglyceridemia #continued abd pain w/ abd distention >CT A/P(09/05/19) -- extensive peripancreatic fluid. No pancreatic necrosis/ abscess #acute pancreatitis 2/2 hypertriglyceridemia >RUQ US(09/03/19): fatty liver, GB w/o stones or wall thickening >lipase 4937 >triglycerides 2961 --> 1167 --> 570-->457 -insulin gtt dc'd -levemir 12U QHS, ISS q6h -gemfibrozil 600mg BID -mIVF -NPO --dc'd -pain control: morphine 2mg q6h PRN #nausea -ondansetron -pantoprazole #UTI >UA: (-)LE, (-)nitrite, (4+)ketones >UCX: strept Agalactiae Group B -ceftriaxone --dc'd #Diabetes >blood sugar 171 >HbA1c ~10.9 -ISS q6h, levemir #hypokalemia -replete PRN #leukocytosis -- improving >CXR: possible RUL granuloma >WBC 14.6(neutrophils 90.5%) -->10.5--> 8.4 #DVT prophylaxis -lovenox #FEN -NPO -IVF: D5LR @100 #Dispo: -downgrade from ICU -ICU for q1h glucose checks, insulin gtt Visit type - Emergency Visit Emergency Visit: No - New Patient This patient is new to me today: No - Critical Care Critical Care patient: No ATTENDING PHYSICIAN STATEMENT I saw and evaluated the patient. I reviewed the resident's note and discussed the case with the resident. I agree with the resident's findings and plan as documented. SUBJECTIVE: OBJECTIVE: ASSESSMENT AND PLAN:
--- NOTE | 2019-09-06 18:50 | PN ---
Teaching Attending Note Name of Resident: Mehran Benoit ATTENDING PHYSICIAN STATEMENT I saw and evaluated the patient. I reviewed the resident's note and discussed the case with the resident. I agree with the resident's findings and plan as documented. SUBJECTIVE: Seen and examined at bedside. Patient complains of abdominal pain, controlled with medications. No nausea, vomiting. OBJECTIVE: Vital Signs Period Temp Pulse Resp BP Sys/Christensen Pulse Ox Last 24 Hr 98.4 F-100.8 F 100-123 20-96 109-122/70-80 94-94 PHYSICAL EXAM: General: NAD, flat affect CVS: s1s2, tachycardic Lungs: CTA bilateral, unlabored Abdomen: soft, tender to palpation periumbilical region, no guarding or rebound Ext: no c/c/e, 2+ DPP Current Medications Generic Name Dose Route Start Last Admin Trade Name Freq PRN Reason Stop Dose Admin Acetaminophen 650 mg 09/06/19 18:13 Tylenol - PO Q6H PRN PAIN OR FEVER Bisacodyl 10 mg 09/06/19 14:23 Dulcolax Suppository - [place] DAILY PRN CONSTIPATION Enoxaparin Sodium 40 mg 09/07/19 10:00 Lovenox - SQ DAILY [facility] Gemfibrozil 600 mg 09/06/19 16:30 09/06/19 17:26 Lopid - PO 600 mg BID@0700,1630 [facility] Administration Dextrose/Lactated Ringer's 1,000 mls @ 100 mls/hr 09/06/19 14:23 09/06/19 17: 31 D5-Lr - IV 100 mls/hr ASDIR [facility] Administration Insulin Aspart 1 vial 09/06/19 18:30 09/06/19 18:08 Novolog Vial Sliding Scale - SQ Not Given Q6H [facility] Protocol Insulin Detemir 12 units 09/06/19 22:00 Levemir Vial SQ HS [facility] Morphine Sulfate 2 mg 09/06/19 14:23 09/06/19 17:27 Morphine Sulfate IVPUSH 2 mg Q4H PRN Administration PAIN LEVEL 6-10 Ondansetron HCl 4 mg 09/06/19 14:23 Zofran Injection IVPUSH Q4H PRN NAUSEA AND/OR VOMITING Pantoprazole Sodium 40 mg 09/06/19 22:00 Protonix Iv IVPUSH BID [facility] Laboratory Results - last 24 hr 09/05/19 09/06/19 09/06/19 22:52 01:20 05:28 Sodium Potassium Chloride Carbon Dioxide Anion Gap BUN Creatinine Est GFR (CKD-EPI)AfAm Est GFR (CKD-EPI)NonAf POC Glucometer 220 209 169 Random Glucose Calcium Phosphorus Magnesium Total Bilirubin AST ALT Alkaline Phosphatase Total Protein Albumin 09/06/19 09/06/19 05:30 17:09 Sodium 138 Potassium 3.5 Chloride 104 Carbon Dioxide 27 Anion Gap 7 L BUN 4.8 L Creatinine 0.3 L Est GFR (CKD-EPI)AfAm 170.72 Est GFR (CKD-EPI)NonAf 147.30 POC Glucometer 152 Random Glucose 171 H Calcium 7.4 L Phosphorus 2.5 Magnesium 2.0 Total Bilirubin 0.5 AST 11 L ALT 13 Alkaline Phosphatase 80 Total Protein 4.8 L Albumin 1.9 L IMAGING REPORTS REVIEWED ASSESSMENT: Sepsis Acute pancreatitis secondary to hypertriglyceridemia DM2, uncontrolled PLAN: -patient has received 3 days of aggressive IVF and insulin gtt, CT scan yesterday with acute pancreatitis and peripancreatic fluid accumulation -spiked temp today, tachycardic -pancultured -start zosyn pending workup -GI consult placed -TG coming down, continue with fibrates -pain control -replete lytes as need -maintain on IVF, lower rate given bilateral pleural effusions -BS control, endo following, patient now on basal/bolus dosing
[2019-09-06 20:35] LABS: BASO % 0.3 % (0-2.0); EOS % 0.4 % (0-4.5); HEMATOCRIT 31.2 % (32.4-45.2); HEMOGLOBIN 10.3 GM/dL (10.7-15.3); LYMPH % 9.3 % (8-40); MCH 26.7 pg (25.7-33.7); MEAN CELL VOLUME 81.1 fl (80-96); MEAN PLT VOLUME 8.9 fl (7.5-11.1); MONO % 5.4 % (3.8-10.2); NEUT % 84.6 % (42.8-82.8); PLATELET COUNT 259 K/MM3 (134-434); RBC 3.84 M/mm3 (3.60-5.2); RDW 16.3 % (11.6-15.6); WHITE BLOOD COUNT 9.8 K/mm3 (4.0-10.0)
[2019-09-06 21:02] LABS: BILIRUBIN,TOTAL 0.4 mg/dL (0.2-1); CALCIUM 7.6 mg/dL (8.5-10.1); CREATININE 0.3 mg/dL (0.55-1.3); PHOSPHOROUS 2.2 mg/dL (2.5-4.9); POTASSIUM 3.3 mmol/L (3.5-5.1)
[2019-09-06 21:22] LABS: PH,URINE >= 9.0 (5.0-8.0); URINE APPEARANCE CLEAR; URINE BILIRUBIN NEGATIVE (NEGATIVE); URINE COLOR YELLOW; URINE GLUCOSE (UA) 1+ (NEGATIVE); URINE KETONE NEGATIVE (NEGATIVE); URINE LEUK ESTERASE NEGATIVE (NEGATIVE); URINE NITRITE NEGATIVE (NEGATIVE); URINE PROTEIN TRACE (NEGATIVE); URINE UROBILINOGEN 0.2 mg/dL (0.2-1.0)
[2019-09-06] MEDS: DEXTROSE 5%-LACTATED RINGERS 1,000 ML IV SCH (22:08)
[2019-09-06] MEDS: INSULIN (LEVEMIR) 100 UNITS/ML UNITS SQ SCH (22:14)
[2019-09-06] MEDS ORDERED: PIPERACILLIN/TAZOBACTAM 3.375 GM VIAL IVPB ONE (22:17)
[2019-09-06] MEDS ORDERED: DEXTROSE 5%-WATER - 50 ML IVPB ONE (22:17)
[2019-09-06] MEDS: PIPERACILLIN/TAZOB 3.375 GM 3.375 GM in DEXTROSE 5%-WATER - 50 ML IVPB SCH (22:22)
[2019-09-07] MEDS: PIPERACILLIN/TAZOB 3.375 GM 3.375 GM in DEXTROSE 5%-WATER - 50 ML IVPB SCH ×3 (05:00→20:00)
[2019-09-07] MEDS ORDERED: PIPERACILLIN/TAZOBACTAM 3.375 GM VIAL IVPB ONE ×2 (05:19→14:17)
[2019-09-07] MEDS ORDERED: DEXTROSE 5%-WATER - 50 ML IVPB ONE ×2 (05:20→14:17)
[2019-09-07] MEDS ORDERED: PIPERACILLIN/TAZOB 3.375 GM 3.375 GM in DEXTROSE 5%-WATER - 50 ML IVPB SCH (06:00)
[2019-09-07] MEDS: GEMFIBROZIL 600 MG TABLET (FP) PO SCH ×2 (06:16→17:28)
[2019-09-07] MEDS: INSULIN SLIDING SCALE (NOVOLOG) 1 VIAL SQ SCH ×3 (06:17→17:44)
--- NOTE | 2019-09-07 08:48 | CON.GI ---
Consult Consult Specialty:: GI Referred by:: Hospitalist Service Reason for Consultation:: Pancreatitis - History of Present Illness Chief Complaint: Abdominal pain History of Present Illness: 34F with progressive mid and left sided abdominal pain from early 09/03. Came to [facility] ER 09/03: Liver chemistries were normal. Abdominal US failed to reveal gallstones, diltaed biliary tract. Given IV fluids. Triglycerides were >2000. Seen by endocrinology ans started on gemfibrizol. In the [employer] system it appears as though she was on 200cc/hr of LR at one point, now on 75cc/hr. CT scan 09/05 revealed peripancreatic fluid but failed to reveal pancreatic necrosis. There was layering sludge vs. small stones noted on CT. Had Temp 100.8 last night so GI called. CXR revealed LLL infiltrate / effusion. Abdominal pain improved from admission. She denies similar episodes in the past - History Source History Provided By: Patient, Medical Record - Past Medical History Cardio/Vascular: Yes: Hyperlipdemia (Hypertriglyceridemia) ...: No Endocrine: Yes: Diabetes Mellitus (DM II), Other (HLD) - Past Surgical History Past Surgical History: Yes: (x 2) - Alcohol/Substance Use Hx Alcohol Use: No History of Substance Use: reports: None - Smoking History Smoking history: Never smoked Have you smoked in the past 12 months: No - Social History Usual Living Arrangement: With Child ADL: Independent Occupation: Works as cook. [employer] Place of : Other ([place]) Came to [place] (year[place] 2001 History of Recent Travel: No Home Medications - Allergies Allergies/Adverse Reactions: Allergies Allergy/AdvReac Type Severity Reaction Status Date / Time No Known Drug Allergies Allergy Verified 09/03/19 06:07 - Home Medications Home Medications: Ambulatory Orders NK [No Known Home Medication] 09/03/19 Family Medical History Other Family History: Mother: Alive: DM II. Father: 75: in sleep. Siblings: 9 sisters, 2 brothers: 1 brother : accident, 1 brother : DM complications. 2 sons, 1 daughter: healthy. No family history of pancreatitis / colorectal cancer or other GI malignancy Review of Systems - Review of Systems Constitutional: reports: Chills Cardiovascular: denies: Chest Pain Respiratory: denies: SOB Gastrointestinal: reports: Abdominal Pain (improved) Physical Exam-GI Vital Signs: Vital Signs Temperature 99.7 F H 09/07/19 06:00 Pulse Rate 110 H 09/07/19 06:00 Respiratory Rate 20 09/07/19 06:00 Blood Pressure 120/71 09/07/19 06:00 O2 Sat by Pulse Oximetry (%) 94 L 09/06/19 09:00 Constitutional: Yes: Calm Eyes: No: Sclera Icterus Cardiovascular: Yes: Tachycardia Respiratory: Yes: Diminished (decreased breath sounds at bases L>R) Gastrointestinal Inspection: Yes: Scars (pelvic). No: Distention ...Auscultate: Yes: Normoactive Bowel Sounds ...Palpate: Yes: Soft, Tenderness (Mild TTP mid abdomen). No: Firm/Rigid, Guarding, Hepatomegaly, Tenderness, Rebound ...Percussion: No: Tympanitic Edema: No (No LE edema) Neurological: Yes: Alert Labs: CBC, BMP 09/06/19 20:00 09/06/19 20:00 Hepatic Panel Total Bilirubin 0.4 mg/dL (0.2-1) 09/06/19 20:00 Direct Bilirubin 0.1 mg/dL (0.0-0.2) 09/04/19 18:00 AST 11 U/L (15-37) L 09/06/19 20:00 ALT 14 U/L (13-61) 09/06/19 20:00 Alkaline Phosphatase 92 U/L (45-117) 09/06/19 20:00 Albumin 2.0 g/dl (3.4-5.0) L 09/06/19 20:00 Imaging - Results Cat Scan: Report Reviewed, Image Reviewed Problem List - Problems (1) Pancreatitis Assessment/Plan: Acute interstitial pancreatitis: With marked hypertriglyceridemia on admission, this would have to be considered as causative etiology. Liver chemistries not suggestive of biliary etiology without gallstones on initial US. Low grade fevers with atelectasis / consolidation noted on CXR. No evidence of pancreatic necrosis on CT scan from 09/05 and clinically remains improved from pancreatitis standpoint Advise: Advancing diet: ordered full liquid for afternoon On therapy for hypertriglyceridemia If worsening abdominal pain, leukocytosis / fevers, increase IV hydration rate, make NPO and would consider repeat imaging to exclude progressing early fluid collection / necrosis, however would just observe for now. Ordered CBC and CRP for AM, CRP for today. Code(s): K85.90 - ACUTE PANCREATITIS WITHOUT NECROSIS OR INFECTION, UNSP Qualifiers: Chronicity: acute Pancreatitis type: other Acute pancreatitis complication: no infection or necrosis Qualified Code(s): K85.80 - Other acute pancreatitis without necrosis or infection
[2019-09-07 08:51] LABS: HEMATOCRIT 30.8 % (32.4-45.2); HEMOGLOBIN 10.2 GM/dL (10.7-15.3); MCH 26.6 pg (25.7-33.7); MCHC 33.3 g/dl (32.0-36.0); PLATELET COUNT 266 K/MM3 (134-434); RBC 3.85 M/mm3 (3.60-5.2); RDW 16.6 % (11.6-15.6); WHITE BLOOD COUNT 11.1 K/mm3 (4.0-10.0)
[2019-09-07 09:19] LABS: BLOOD UREA NITROGEN 4.1 mg/dL (7-18); CALCIUM 7.8 mg/dL (8.5-10.1); CREATININE 0.2 mg/dL (0.55-1.3); MAGNESIUM 2.1 mg/dL (1.8-2.4); PHOSPHOROUS 3.2 mg/dL (2.5-4.9); POTASSIUM 3.2 mmol/L (3.5-5.1)
--- NOTE | 2019-09-07 09:35 | PN ---
Progress Note (short form) - Note Progress Note: Feels better Mild abd pain Vital Signs Period Temp Pulse Resp BP Sys/Christensen Pulse Ox Last 24 Hr 98.7 F-100.8 F 100-113 20-22 114-124/65-80 PE: AOx3 Neck: Supple HEENT: EOMI, Lungs: CTA CVS: S1S2 Abd: BS sluggish Ext: No edema Neuro: No focal deficit CMP Sodium 135 mmol/L (136-145) L 09/07/19 08:10 Potassium 3.2 mmol/L (3.5-5.1) L 09/07/19 08:10 Chloride 104 mmol/L (98-107) 09/07/19 08:10 Carbon Dioxide 24 mmol/L (21-32) 09/07/19 08:10 Anion Gap 7 MMOL/L (8-16) L 09/07/19 08:10 BUN 4.1 mg/dL (7-18) L 09/07/19 08:10 Creatinine 0.2 mg/dL (0.55-1.3) L 09/07/19 08:10 Est GFR (CKD-EPI)AfAm 195.08 09/07/19 08:10 Est GFR (CKD-EPI)NonAf 168.32 09/07/19 08:10 POC Glucometer 157 UNITS (80-120) 09/07/19 06:16 Random Glucose 132 mg/dL (74-106) H 09/07/19 08:10 Hemoglobin A1c % 10.9 % (4.2-6.3) H 09/03/19 10:00 Lactic Acid 0.8 mmol/L (0.4-2.0) 09/06/19 20:00 Calcium 7.8 mg/dL (8.5-10.1) L 09/07/19 08:10 Phosphorus 3.2 mg/dL (2.5-4.9) 09/07/19 08:10 Magnesium 2.1 mg/dL (1.8-2.4) 09/07/19 08:10 Total Bilirubin 0.4 mg/dL (0.2-1) 09/06/19 20:00 Direct Bilirubin 0.1 mg/dL (0.0-0.2) 09/04/19 18:00 AST 11 U/L (15-37) L 09/06/19 20:00 ALT 14 U/L (13-61) 09/06/19 20:00 Alkaline Phosphatase 92 U/L (45-117) 09/06/19 20:00 Total Protein 5.0 g/dl (6.4-8.2) L 09/06/19 20:00 Albumin 2.0 g/dl (3.4-5.0) L 09/06/19 20:00 Triglycerides 457 mg/dL (0-150) H 09/05/19 05:59 Cholesterol 363 mg/dL (50-200) H 09/03/19 07:54 Total LDL Cholesterol 111 mg/dL (5-100) H 09/03/19 07:54 HDL Cholesterol 25 mg/dL (40-60) L 09/03/19 07:54 Lipase 1765 U/L (73-393) H 09/04/19 05:20 Current Medications Generic Name Dose Route Start Last Admin Trade Name Freq PRN Reason Stop Dose Admin Acetaminophen 650 mg 09/06/19 18:13 Tylenol - PO Q6H PRN PAIN OR FEVER Bisacodyl 10 mg 09/06/19 14:23 Dulcolax Suppository - [place] DAILY PRN CONSTIPATION Enoxaparin Sodium 40 mg 09/07/19 10:00 Lovenox - SQ DAILY [facility] Gemfibrozil 600 mg 09/06/19 16:30 09/07/19 06:16 Lopid - PO 600 mg BID@0700,1630 [facility] Administration Dextrose/Lactated Ringer's 1,000 mls @ 75 mls/hr 09/06/19 19:15 09/06/19 22: 08 D5-Lr - IV Not Given ASDIR [facility] Piperacillin Sod/Tazobactam 50 mls @ 100 mls/hr 09/06/19 19:30 09/07/19 05:00 Sod 3.375 gm/ Dextrose IVPB 09/07/19 19:29 100 mls/hr Q8H-IV [facility] Administration Piperacillin Sod/Tazobactam 50 mls @ 100 mls/hr 09/07/19 06:00 Sod 3.375 gm/ Dextrose IVPB Q8H-IV [facility] Protocol Insulin Aspart 1 vial 09/06/19 18:30 09/07/19 06:17 Novolog Vial Sliding Scale - SQ 2 units Q6H [facility] Administration Protocol Insulin Detemir 12 units 09/06/19 22:00 09/06/19 22:14 Levemir Vial SQ 12 units HS [facility] Administration Morphine Sulfate 2 mg 09/06/19 14:23 09/06/19 22:33 Morphine Sulfate IVPUSH 2 mg Q4H PRN Administration PAIN LEVEL 6-10 Ondansetron HCl 4 mg 09/06/19 14:23 Zofran Injection IVPUSH Q4H PRN NAUSEA AND/OR VOMITING Pantoprazole Sodium 40 mg 09/06/19 22:00 09/06/19 22:10 Protonix Iv IVPUSH 40 mg BID [facility] Administration Ap: Acute Pancreatitis due to Hypertriglyceridemia H/O GDM/Hyperglycemia T2DM: A1c 10.9 Monitor serum Triglycerides Monitor BGM NPO for now, Gemfibrozil 600mg BID Levemir 12 units daily Novolog SS Continue IVF with D5 until pt is able to tolerate full diet. Adjust rate to maintain blood sugar 120 to 180. Pain control with Morphine sulfate Nutrition consult
[2019-09-07] MEDS: ENOXAPARIN NA (PORCINE) 40 MG/0.4 ML DISP.SYRIN SQ SCH (09:48)
[2019-09-07] MEDS: PANTOPRAZOLE SODIUM 40 MG VIAL IVPUSH SCH ×2 (09:48→21:32)
[2019-09-07 12:15] LABS: ANISOCYTOSIS 1+; MACROCYTOSIS 0; OVALOCYTE 1+; PLATELET ESTIMATE NORMAL
[2019-09-07] MEDS: MORPHINE SULFATE 2 MG/ML VIAL IVPUSH PRN ×2 (12:36→21:56)
[2019-09-07] MEDS ORDERED: PIPERACILLIN/TAZOB 3.375 GM 3.375 GM in DEXTROSE 5%-WATER - 50 ML IVPB ONE (14:00)
--- NOTE | 2019-09-07 14:17 | CON.ID ---
Consult Consult Specialty:: infectious diseases Referred by:: Reason for Consultation:: uti,abd pain - History of Present Illness Chief Complaint: abd pain History of Present Illness: 34F w/ pmh of gestational diabetes(2018, that pt states resolved) BIBA after being awoken at ~0200 with severe 10/0 upper abd pain radiating to the back w/a chills, sweating, nausea, vomiting(yellow and food-like). Denies having similiar pain in the past. Denies history of postprandial abd pain, dx of GB stones, recent heavy EtOH usage. Pain improved after StJ-ED administration of ofirmev and morphine. the above was the history on admission i was called in as patients work up shows her urine is positive and patient spiked a low grade fever as well as wbc has increased patient initially on admission had leukocytosis which had resolved and also onher xray patient showing left lower lobe infiltrate/pneumonia - History Source History Provided By: Patient, Medical Record, Transfer Record Limitations to Obtaining History: Language Barrier - Past Medical History Cardio/Vascular: Yes: Hyperlipdemia (Hypertriglyceridemia) ...: No Endocrine: Yes: Diabetes Mellitus (DM II), Other (HLD) - Past Surgical History Past Surgical History: Yes: (x 2) - Alcohol/Substance Use Hx Alcohol Use: No History of Substance Use: reports: None - Smoking History Smoking history: Never smoked Have you smoked in the past 12 months: No - Social History Usual Living Arrangement: With Child ADL: Independent Occupation: Works as cook. [employer] History of Recent Travel: No Home Medications - Allergies Allergies/Adverse Reactions: Allergies Allergy/AdvReac Type Severity Reaction Status Date / Time No Known Drug Allergies Allergy Verified 09/03/19 06:07 - Home Medications Home Medications: Ambulatory Orders NK [No Known Home Medication] 09/03/19 Review of Systems - Review of Systems Constitutional: reports: No Symptoms Eyes: reports: No Symptoms HENT: reports: No Symptoms Neck: reports: No Symptoms Cardiovascular: reports: No Symptoms Respiratory: reports: No Symptoms Gastrointestinal: reports: Abdominal Pain Genitourinary: reports: No Symptoms Musculoskeletal: reports: No Symptoms Integumentary: reports: No Symptoms Neurological: reports: No Symptoms Endocrine: reports: No Symptoms Hematology/Lymphatic: reports: No Symptoms Psychiatric: reports: No Symptoms Physical Exam Vital Signs: Vital Signs Temperature 99.1 F 09/07/19 09:54 Pulse Rate 102 H 09/07/19 09:54 Respiratory Rate 20 09/07/19 09:54 Blood Pressure 126/73 09/07/19 09:54 O2 Sat by Pulse Oximetry (%) 94 L 09/06/19 09:00 Constitutional: Yes: Well Nourished, Calm, Mild Distress Eyes: Yes: Conjunctiva Clear Cardiovascular: Yes: S1, S2 Respiratory: Yes: Regular, CTA Bilaterally Gastrointestinal: Yes: Normal Bowel Sounds, Soft Musculoskeletal: Yes: WNL Extremities: Yes: WNL Neurological: Yes: Alert, Oriented Psychiatric: Yes: Alert, Oriented Labs: CBC, BMP 09/07/19 08:10 09/07/19 08:10
--- NOTE | 2019-09-07 15:57 | PN ---
Teaching Attending Note Name of Resident: Mehran Benoit ATTENDING PHYSICIAN STATEMENT I saw and evaluated the patient. I reviewed the resident's note and discussed the case with the resident. I agree with the resident's findings and plan as documented with exceptions below. SUBJECTIVE: Patient seen and examined, abdominal pain improved, hungry, asking if can eat. Overall feels better. OBJECTIVE: Vital Signs Period Temp Pulse Resp BP Sys/Christensen Pulse Ox Last 24 Hr 98.7 F-100.8 F 102-113 18-20 117-129/65-77 Intake & Output 09/04/19 09/05/19 09/06/19 09/07/19 23:59 23:59 23:59 23:59 Intake Total 5070.2 3420 1520 Output Total 600 1700 1100 Balance -600 3370.2 2320 1520 Weight 121 lb 12.8 oz 121 lb General: lying in bed in no acute distress Chest: decreased breath sounds at bases, L>R Abdomen;Soft, obese, tenderness in epigastrium, LUQ, no voluntary or involuntary guarding or rigidity, pos bowel sounds Extremities: 1+ non pitting pedal edema Home Medications Medication Instructions Recorded NK [No Known Home Medication] 09/03/19 Active Medications Acetaminophen (Tylenol -) 650 mg PO Q6H PRN PRN Reason: PAIN OR FEVER Bisacodyl (Dulcolax Suppository -) 10 mg [place] DAILY PRN PRN Reason: CONSTIPATION Enoxaparin Sodium (Lovenox -) 40 mg SQ DAILY [facility] Last Admin: 09/07/19 09:48 Dose: 40 mg Gemfibrozil (Lopid -) 600 mg PO BID@0700,1630 [facility] Last Admin: 09/07/19 06:16 Dose: 600 mg Dextrose/Lactated Ringer's (D5-Lr -) 1,000 mls @ 75 mls/hr IV ASDIR [facility] Last Admin: 09/06/19 22:08 Dose: Not Given Piperacillin Sod/Tazobactam (Sod 3.375 gm/ Dextrose) 50 mls @ 100 mls/hr IVPB Q8H-IV DEBBIE; Protocol Potassium Chloride (Potassium Chloride 10 Meq Premix Ivpb -) 10 meq in 100 mls @ 100 mls/hr IVPB Q60M [facility] Stop: 09/07/19 17:59 Insulin Aspart (Novolog Vial Sliding Scale -) 1 vial SQ Q6H [facility]; Protocol Last Admin: 09/07/19 12:20 Dose: 2 units Insulin Detemir (Levemir Vial) 12 units SQ HS [facility] Last Admin: 09/06/19 22:14 Dose: 12 units Morphine Sulfate (Morphine Sulfate) 2 mg IVPUSH Q4H PRN PRN Reason: PAIN LEVEL 6-10 Last Admin: 09/07/19 12:36 Dose: 2 mg Ondansetron HCl (Zofran Injection) 4 mg IVPUSH Q4H PRN PRN Reason: NAUSEA AND/OR VOMITING Pantoprazole Sodium (Protonix Iv) 40 mg IVPUSH BID [facility] Last Admin: 09/07/19 09:48 Dose: 40 mg Laboratory Results - last 24 hr 09/06/19 09/06/19 09/06/19 17:09 20:00 20:00 WBC 9.8 RBC 3.84 Hgb 10.3 L Hct 31.2 L MCV 81.1 MCH 26.7 MCHC 33.0 RDW 16.3 H Plt Count 259 MPV 8.9 Absolute Neuts (auto) 8.3 H Neutrophils % 84.6 H Neutrophils % (Manual) Band Neutrophils % Lymphocytes % 9.3 Lymphocytes % (Manual) Monocytes % 5.4 Monocytes % (Manual) Eosinophils % 0.4 D Eosinophils % (Manual) Basophils % 0.3 Basophils % (Manual) Myelocytes % (Man) Promyelocytes % (Man) Blast Cells % (Manual) Nucleated RBC % 0 Metamyelocytes Hypochromia Platelet Estimate Polychromasia Poikilocytosis Anisocytosis Microcytosis Macrocytosis Ovalocytes Sodium 137 Potassium 3.3 L Chloride 104 Carbon Dioxide 26 Anion Gap 7 L BUN 5.0 L Creatinine 0.3 L Est GFR (CKD-EPI)AfAm 170.72 Est GFR (CKD-EPI)NonAf 147.30 POC Glucometer 152 Random Glucose 149 H Lactic Acid Calcium 7.6 L Phosphorus 2.2 L Magnesium 2.0 Total Bilirubin 0.4 AST 11 L ALT 14 Alkaline Phosphatase 92 C-Reactive Protein Total Protein 5.0 L Albumin 2.0 L Urine Color Urine Appearance Urine pH Ur Specific [place] Urine Protein Urine Glucose (UA) Urine Ketones Urine Blood Urine Nitrite Urine Bilirubin Urine Urobilinogen Ur Leukocyte Esterase 09/06/19 09/06/19 09/06/19 20:00 20:42 22:09 WBC RBC Hgb Hct MCV MCH MCHC RDW Plt Count MPV Absolute Neuts (auto) Neutrophils % Neutrophils % (Manual) Band Neutrophils % Lymphocytes % Lymphocytes % (Manual) Monocytes % Monocytes % (Manual) Eosinophils % Eosinophils % (Manual) Basophils % Basophils % (Manual) Myelocytes % (Man) Promyelocytes % (Man) Blast Cells % (Manual) Nucleated RBC % Metamyelocytes Hypochromia Platelet Estimate Polychromasia Poikilocytosis Anisocytosis Microcytosis Macrocytosis Ovalocytes Sodium Potassium Chloride Carbon Dioxide Anion Gap BUN Creatinine Est GFR (CKD-EPI)AfAm Est GFR (CKD-EPI)NonAf POC Glucometer 166 Random Glucose Lactic Acid 0.8 Calcium Phosphorus Magnesium Total Bilirubin AST ALT Alkaline Phosphatase C-Reactive Protein Total Protein Albumin Urine Color Yellow Urine Appearance Clear Urine pH >= 9.0 H D Ur Specific [place] 1.013 Urine Protein Trace Urine Glucose (UA) 1+ H Urine Ketones Negative Urine Blood Negative Urine Nitrite Negative Urine Bilirubin Negative Urine Urobilinogen 0.2 Ur Leukocyte Esterase Negative 09/07/19 09/07/19 09/07/19 06:16 08:10 08:10 WBC 11.1 H RBC 3.85 Hgb 10.2 L Hct 30.8 L MCV 80.0 MCH 26.6 MCHC 33.3 RDW 16.6 H Plt Count 266 MPV 8.0 D Absolute Neuts (auto) Neutrophils % Neutrophils % (Manual) 80.6 Band Neutrophils % 6.1 Lymphocytes % Lymphocytes % (Manual) 5.1 L D Monocytes % Monocytes % (Manual) 6 D Eosinophils % Eosinophils % (Manual) 1.0 D Basophils % Basophils % (Manual) 0.0 Myelocytes % (Man) 0 Promyelocytes % (Man) 0 Blast Cells % (Manual) 0 Nucleated RBC % 1 H Metamyelocytes 0 Hypochromia 0 Platelet Estimate Normal Polychromasia 0 Poikilocytosis 0 Anisocytosis 1+ Microcytosis 1+ Macrocytosis 0 Ovalocytes 1+ Sodium 135 L Potassium 3.2 L Chloride 104 Carbon Dioxide 24 Anion Gap 7 L BUN 4.1 L Creatinine 0.2 L Est GFR (CKD-EPI)AfAm 195.08 Est GFR (CKD-EPI)NonAf 168.32 POC Glucometer 157 Random Glucose 132 H Lactic Acid Calcium 7.8 L Phosphorus 3.2 Magnesium 2.1 Total Bilirubin AST ALT Alkaline Phosphatase C-Reactive Protein 23.3 H Total Protein Albumin Urine Color Urine Appearance Urine pH Ur Specific [place] Urine Protein Urine Glucose (UA) Urine Ketones Urine Blood Urine Nitrite Urine Bilirubin Urine Urobilinogen Ur Leukocyte Esterase 09/07/19 12:14 WBC RBC Hgb Hct MCV MCH MCHC RDW Plt Count MPV Absolute Neuts (auto) Neutrophils % Neutrophils % (Manual) Band Neutrophils % Lymphocytes % Lymphocytes % (Manual) Monocytes % Monocytes % (Manual) Eosinophils % Eosinophils % (Manual) Basophils % Basophils % (Manual) Myelocytes % (Man) Promyelocytes % (Man) Blast Cells % (Manual) Nucleated RBC % Metamyelocytes Hypochromia Platelet Estimate Polychromasia Poikilocytosis Anisocytosis Microcytosis Macrocytosis Ovalocytes Sodium Potassium Chloride Carbon Dioxide Anion Gap BUN Creatinine Est GFR (CKD-EPI)AfAm Est GFR (CKD-EPI)NonAf POC Glucometer 152 Random Glucose Lactic Acid Calcium Phosphorus Magnesium Total Bilirubin AST ALT Alkaline Phosphatase C-Reactive Protein Total Protein Albumin Urine Color Urine Appearance Urine pH Ur Specific [place] Urine Protein Urine Glucose (UA) Urine Ketones Urine Blood Urine Nitrite Urine Bilirubin Urine Urobilinogen Ur Leukocyte Esterase CXR from 09/06/2019 reviewed ASSESSMENT AND PLAN: 34 yof with PMHx of gestational DM in 2018, admitted with severe pancreatitis, hypertriglyceridemia and hyperglycemia -Severe acute pancreatitis -Hypertriglyceridemia -Hyperglycemia with new onset type II DM -LLL pleural effusion -h/o gestational DM Plan: Clinically improved. GI input noted. Advance to full liquid. Low grade temp, abdominal exam improved. Monitor clinically, follow up ID input No new respiratory symptoms, Incentive spirometry and monitor for now. Low clinical suspicion for LLL infectious process. IVF decreased. Continue D5 in fluids till taking po well Endocrine input noted. levemir, ISS, home insulin/Diabetic teaching. Continue gemfibrozil. Replete K [id number] lovenox Dispo pending clinical improvement. Discussed with patient.
[2019-09-07] MEDS: KCL 10 MEQ IVPB 10 MEQ/100 ML INFUS.BAG IVPB SCH ×2 (17:21→18:24)
[2019-09-07] MEDS ORDERED: INSULIN (NOVOLOG) ASPART 100 UNITS/ML 10ML VIAL ONE (19:37)
--- NOTE | 2019-09-07 20:12 | PN ---
Physical Exam: SUBJECTIVE: Patient seen and examined. Endorses appetite. No BM. Denies SOB. Urine is light-colored. Abdominal pain improved overall. OBJECTIVE: Vital Signs Period Temp Pulse Resp BP Sys/Christensen Pulse Ox Last 24 Hr 98.7 F-99.8 F 102-110 18-20 117-129/65-79 GENERAL: Awake, alert, and fully oriented, in no acute distress. HEAD: Normal with no signs of trauma. No temporal wasting EYES: extraocular movements intact, sclera anicteric, conjunctiva clear. EARS, NOSE, THROAT: Moist mucous membranes. NECK: Normal range of motion, supple without lymphadenopathy, JVD, or masses. LUNGS: Breath sounds equal, clear to auscultation bilaterally. No wheezes, and no crackles. No accessory muscle use. IS ~250 to 500cc HEART: Regular rate and rhythm, normal S1 and S2 without murmur, rub or gallop. ABDOMEN: Soft, mildly distended, normoactive bowel sounds, no guarding, no rebound. Tenderness with deep palpitation of the epigastrium. Neg CVA MUSCULOSKELETAL: Normal range of motion at all joints. No bony deformities or tenderness. LOWER EXTREMITIES: 2+ pulses, warm, well-perfused. No calf tenderness. No peripheral edema. NEUROLOGICAL: Normal speech. SKIN: Warm, dry, normal turgor, no rashes or lesions noted, normal capillary refill Laboratory Results - last 24 hr 09/06/19 09/06/19 09/06/19 20:00 20:00 20:00 WBC 9.8 RBC 3.84 Hgb 10.3 L Hct 31.2 L MCV 81.1 MCH 26.7 MCHC 33.0 RDW 16.3 H Plt Count 259 MPV 8.9 Absolute Neuts (auto) 8.3 H Neutrophils % 84.6 H Neutrophils % (Manual) Band Neutrophils % Lymphocytes % 9.3 Lymphocytes % (Manual) Monocytes % 5.4 Monocytes % (Manual) Eosinophils % 0.4 D Eosinophils % (Manual) Basophils % 0.3 Basophils % (Manual) Myelocytes % (Man) Promyelocytes % (Man) Blast Cells % (Manual) Nucleated RBC % 0 Metamyelocytes Hypochromia Platelet Estimate Polychromasia Poikilocytosis Anisocytosis Microcytosis Macrocytosis Ovalocytes Sodium 137 Potassium 3.3 L Chloride 104 Carbon Dioxide 26 Anion Gap 7 L BUN 5.0 L Creatinine 0.3 L Est GFR (CKD-EPI)AfAm 170.72 Est GFR (CKD-EPI)NonAf 147.30 POC Glucometer Random Glucose 149 H Lactic Acid 0.8 Calcium 7.6 L Phosphorus 2.2 L Magnesium 2.0 Total Bilirubin 0.4 AST 11 L ALT 14 Alkaline Phosphatase 92 C-Reactive Protein Total Protein 5.0 L Albumin 2.0 L Urine Color Urine Appearance Urine pH Ur Specific [place] Urine Protein Urine Glucose (UA) Urine Ketones Urine Blood Urine Nitrite Urine Bilirubin Urine Urobilinogen Ur Leukocyte Esterase 09/06/19 09/06/19 09/07/19 20:42 22:09 06:16 WBC RBC Hgb Hct MCV MCH MCHC RDW Plt Count MPV Absolute Neuts (auto) Neutrophils % Neutrophils % (Manual) Band Neutrophils % Lymphocytes % Lymphocytes % (Manual) Monocytes % Monocytes % (Manual) Eosinophils % Eosinophils % (Manual) Basophils % Basophils % (Manual) Myelocytes % (Man) Promyelocytes % (Man) Blast Cells % (Manual) Nucleated RBC % Metamyelocytes Hypochromia Platelet Estimate Polychromasia Poikilocytosis Anisocytosis Microcytosis Macrocytosis Ovalocytes Sodium Potassium Chloride Carbon Dioxide Anion Gap BUN Creatinine Est GFR (CKD-EPI)AfAm Est GFR (CKD-EPI)NonAf POC Glucometer 166 157 Random Glucose Lactic Acid Calcium Phosphorus Magnesium Total Bilirubin AST ALT Alkaline Phosphatase C-Reactive Protein Total Protein Albumin Urine Color Yellow Urine Appearance Clear Urine pH >= 9.0 H D Ur Specific [place] 1.013 Urine Protein Trace Urine Glucose (UA) 1+ H Urine Ketones Negative Urine Blood Negative Urine Nitrite Negative Urine Bilirubin Negative Urine Urobilinogen 0.2 Ur Leukocyte Esterase Negative 09/07/19 09/07/19 09/07/19 08:10 08:10 12:14 WBC 11.1 H RBC 3.85 Hgb 10.2 L Hct 30.8 L MCV 80.0 MCH 26.6 MCHC 33.3 RDW 16.6 H Plt Count 266 MPV 8.0 D Absolute Neuts (auto) Neutrophils % Neutrophils % (Manual) 80.6 Band Neutrophils % 6.1 Lymphocytes % Lymphocytes % (Manual) 5.1 L D Monocytes % Monocytes % (Manual) 6 D Eosinophils % Eosinophils % (Manual) 1.0 D Basophils % Basophils % (Manual) 0.0 Myelocytes % (Man) 0 Promyelocytes % (Man) 0 Blast Cells % (Manual) 0 Nucleated RBC % 1 H Metamyelocytes 0 Hypochromia 0 Platelet Estimate Normal Polychromasia 0 Poikilocytosis 0 Anisocytosis 1+ Microcytosis 1+ Macrocytosis 0 Ovalocytes 1+ Sodium 135 L Potassium 3.2 L Chloride 104 Carbon Dioxide 24 Anion Gap 7 L BUN 4.1 L Creatinine 0.2 L Est GFR (CKD-EPI)AfAm 195.08 Est GFR (CKD-EPI)NonAf 168.32 POC Glucometer 152 Random Glucose 132 H Lactic Acid Calcium 7.8 L Phosphorus 3.2 Magnesium 2.1 Total Bilirubin AST ALT Alkaline Phosphatase C-Reactive Protein 23.3 H Total Protein Albumin Urine Color Urine Appearance Urine pH Ur Specific [place] Urine Protein Urine Glucose (UA) Urine Ketones Urine Blood Urine Nitrite Urine Bilirubin Urine Urobilinogen Ur Leukocyte Esterase 09/07/19 16:59 WBC RBC Hgb Hct MCV MCH MCHC RDW Plt Count MPV Absolute Neuts (auto) Neutrophils % Neutrophils % (Manual) Band Neutrophils % Lymphocytes % Lymphocytes % (Manual) Monocytes % Monocytes % (Manual) Eosinophils % Eosinophils % (Manual) Basophils % Basophils % (Manual) Myelocytes % (Man) Promyelocytes % (Man) Blast Cells % (Manual) Nucleated RBC % Metamyelocytes Hypochromia Platelet Estimate Polychromasia Poikilocytosis Anisocytosis Microcytosis Macrocytosis Ovalocytes Sodium Potassium Chloride Carbon Dioxide Anion Gap BUN Creatinine Est GFR (CKD-EPI)AfAm Est GFR (CKD-EPI)NonAf POC Glucometer 136 Random Glucose Lactic Acid Calcium Phosphorus Magnesium Total Bilirubin AST ALT Alkaline Phosphatase C-Reactive Protein Total Protein Albumin Urine Color Urine Appearance Urine pH Ur Specific [place] Urine Protein Urine Glucose (UA) Urine Ketones Urine Blood Urine Nitrite Urine Bilirubin Urine Urobilinogen Ur Leukocyte Esterase Active Medications Generic Name Dose Route Start Last Admin Trade Name Freq PRN Reason Stop Dose Admin Acetaminophen 650 mg 09/06/19 18:13 Tylenol - PO Q6H PRN PAIN OR FEVER Bisacodyl 10 mg 09/06/19 14:23 Dulcolax Suppository - [place] DAILY PRN CONSTIPATION Enoxaparin Sodium 40 mg 09/07/19 10:00 09/07/19 09:48 Lovenox - SQ 40 mg DAILY [facility] Administration Gemfibrozil 600 mg 09/06/19 16:30 09/07/19 17:28 Lopid - PO 600 mg BID@0700,1630 DEB[facility]E Administration Dextrose/Lactated Ringer's 1,000 mls @ 75 mls/hr 09/06/19 19:15 09/06/19 22: 08 D5-Lr - IV Not Given ASDIR DEB[facility]E Piperacillin Sod/Tazobactam 50 mls @ 100 mls/hr 09/07/19 06:00 Sod 3.375 gm/ Dextrose IVPB Q8H-IV [facility] Protocol Insulin Aspart 1 vial 09/06/19 18:30 09/07/19 17:44 Novolog Vial Sliding Scale - SQ Not Given Q6H [facility] Protocol Insulin Detemir 12 units 09/06/19 22:00 09/06/19 22:14 Levemir Vial SQ 12 units HS [facility] Administration Morphine Sulfate 2 mg 09/06/19 14:23 09/07/19 12:36 Morphine Sulfate IVPUSH 2 mg Q4H PRN Administration PAIN LEVEL 6-10 Ondansetron HCl 4 mg 09/06/19 14:23 Zofran Injection IVPUSH Q4H PRN NAUSEA AND/OR VOMITING Pantoprazole Sodium 40 mg 09/06/19 22:00 09/07/19 09:48 Protonix Iv IVPUSH 40 mg BID [facility] Administration ASSESSMENT/PLAN: 34F w/ pmh of gestational diabetes(2018, that pt states resolved) presenting with severe epigastric abdominal pain, lipase 4937, triglycerides 2961, suggestive of acute pancreatitis 2/2 hypertriglyceridemia #continued abd pain w/ abd distention >CT A/P(09/05/19) -- extensive peripancreatic fluid. No pancreatic necrosis/ abscess #acute pancreatitis 2/2 hypertriglyceridemia >RUQ US(09/03/19): fatty liver, GB w/o stones or wall thickening >lipase 4937 >triglycerides 2961 --> 1167 --> 570-->457 -insulin gtt dc'd -levemir 12U QHS, ISS q6h -gemfibrozil 600mg BID -pain control: morphine 2mg q6h PRN -GI consult: --start FLD #nausea -ondansetron -pantoprazole #UTI >UA: (-)LE, (-)nitrite, (4+)ketones >UCX: strept Agalactiae Group B -ceftriaxone --dc'd -zosyn --dc'd #Diabetes >blood sugar 171 >HbA1c ~10.9 -ISS q6h, levemir -Endo consult: --Continue IVF with D5 until pt is able to tolerate full diet. Adjust rate to maintain blood sugar 120 to 180 #hypokalemia -replete PRN #leukocytosis -- improving >CXR: possible RUL granuloma >WBC 14.6(neutrophils 90.5%) -->10.5--> 8.4 #DVT prophylaxis -lovenox #FEN -FLD -IVF: D5LR @75 #Dispo: -med surg -dc plan: likely home, insulin teaching Visit type - Emergency Visit Emergency Visit: No - New Patient This patient is new to me today: No - Critical Care Critical Care patient: No ATTENDING PHYSICIAN STATEMENT I saw and evaluated the patient. I reviewed the resident's note and discussed the case with the resident. I agree with the resident's findings and plan as documented. SUBJECTIVE: OBJECTIVE: ASSESSMENT AND PLAN:
[2019-09-07] MEDS: INSULIN (LEVEMIR) 100 UNITS/ML UNITS SQ SCH (21:24)
[2019-09-07] MEDS: DEXTROSE 5%-LACTATED RINGERS 1,000 ML IV SCH (21:32)
[2019-09-08] MEDS: INSULIN SLIDING SCALE (NOVOLOG) 1 VIAL SQ SCH ×5 (00:09→22:04)
[2019-09-08] MEDS: MORPHINE SULFATE 2 MG/ML VIAL IVPUSH PRN ×3 (01:44→21:08)
[2019-09-08] MEDS: GEMFIBROZIL 600 MG TABLET (FP) PO SCH ×2 (06:10→16:58)
--- NOTE | 2019-09-08 08:59 | PN ---
Progress Note (short form) - Note Progress Note: Feels better minimal abd pain tolerating food Vital Signs Period Temp Pulse Resp BP Sys/Christensen Pulse Ox Last 24 Hr 98.3 F-99.8 F 102-106 18-20 117-136/73-81 PE: AOx3 Neck: Supple HEENT: EOMI, Lungs: CTA CVS: S1S2 Abd: BS sluggish Ext: No edema Neuro: No focal deficit CMP Sodium 135 mmol/L (136-145) L 09/07/19 08:10 Potassium 3.2 mmol/L (3.5-5.1) L 09/07/19 08:10 Chloride 104 mmol/L (98-107) 09/07/19 08:10 Carbon Dioxide 24 mmol/L (21-32) 09/07/19 08:10 Anion Gap 7 MMOL/L (8-16) L 09/07/19 08:10 BUN 4.1 mg/dL (7-18) L 09/07/19 08:10 Creatinine 0.2 mg/dL (0.55-1.3) L 09/07/19 08:10 Est GFR (CKD-EPI)AfAm 195.08 09/07/19 08:10 Est GFR (CKD-EPI)NonAf 168.32 09/07/19 08:10 POC Glucometer 139 UNITS (80-120) 09/08/19 06:08 Random Glucose 132 mg/dL (74-106) H 09/07/19 08:10 Hemoglobin A1c % 10.9 % (4.2-6.3) H 09/03/19 10:00 Lactic Acid 0.8 mmol/L (0.4-2.0) 09/06/19 20:00 Calcium 7.8 mg/dL (8.5-10.1) L 09/07/19 08:10 Phosphorus 3.2 mg/dL (2.5-4.9) 09/07/19 08:10 Magnesium 2.1 mg/dL (1.8-2.4) 09/07/19 08:10 Total Bilirubin 0.4 mg/dL (0.2-1) 09/06/19 20:00 Direct Bilirubin 0.1 mg/dL (0.0-0.2) 09/04/19 18:00 AST 11 U/L (15-37) L 09/06/19 20:00 ALT 14 U/L (13-61) 09/06/19 20:00 Alkaline Phosphatase 92 U/L (45-117) 09/06/19 20:00 C-Reactive Protein 23.3 MG/DL (0.00-0.3) H 09/07/19 08:10 Total Protein 5.0 g/dl (6.4-8.2) L 09/06/19 20:00 Albumin 2.0 g/dl (3.4-5.0) L 09/06/19 20:00 Triglycerides 457 mg/dL (0-150) H 09/05/19 05:59 Cholesterol 363 mg/dL (50-200) H 09/03/19 07:54 Total LDL Cholesterol 111 mg/dL (5-100) H 09/03/19 07:54 HDL Cholesterol 25 mg/dL (40-60) L 09/03/19 07:54 Lipase 1765 U/L (73-393) H 09/04/19 05:20 Current Medications Generic Name Dose Route Start Last Admin Trade Name Freq PRN Reason Stop Dose Admin Acetaminophen 650 mg 09/06/19 18:13 Tylenol - PO Q6H PRN PAIN OR FEVER Bisacodyl 10 mg 09/06/19 14:23 Dulcolax Suppository - [place] DAILY PRN CONSTIPATION Enoxaparin Sodium 40 mg 09/07/19 10:00 09/07/19 09:48 Lovenox - SQ 40 mg DAILY [facility] Administration Gemfibrozil 600 mg 09/06/19 16:30 09/08/19 06:10 Lopid - PO 600 mg BID@0700,1630 DEB[facility]E Administration Dextrose/Lactated Ringer's 1,000 mls @ 75 mls/hr 09/06/19 19:15 09/07/19 21: 32 D5-Lr - IV 75 mls/hr ASDIR DEBBIE Administration Insulin Aspart 1 vial 09/06/19 18:30 09/08/19 06:34 Novolog Vial Sliding Scale - SQ Not Given Q6H [facility] Protocol Insulin Detemir 12 units 09/06/19 22:00 09/07/19 21:24 Levemir Vial SQ 12 units HS [facility] Administration Morphine Sulfate 2 mg 09/06/19 14:23 09/08/19 01:44 Morphine Sulfate IVPUSH 2 mg Q4H PRN Administration PAIN LEVEL 6-10 Ondansetron HCl 4 mg 09/06/19 14:23 Zofran Injection IVPUSH Q4H PRN NAUSEA AND/OR VOMITING Pantoprazole Sodium 40 mg 09/06/19 22:00 09/07/19 21:32 Protonix Iv IVPUSH 40 mg BID DEBBIE Administration Ap: Acute Pancreatitis due to Hypertriglyceridemia H/O GDM/Hyperglycemia T2DM: A1c 10.9 Monitor serum Triglycerides Monitor BGM Tolerating food Gemfibrozil 600mg BID Levemir 12 units daily Novolog SS Continue IVF with D5 until pt is able to tolerate full diet. Adjust rate to maintain blood sugar 120 to 180. Pain control with Morphine sulfate Nutrition consult
[2019-09-08 09:01] LABS: BASO % 0.4 % (0-2.0); EOS % 0.6 % (0-4.5); HEMATOCRIT 34.2 % (32.4-45.2); HEMOGLOBIN 11.3 GM/dL (10.7-15.3); LYMPH % 9.6 % (8-40); MCH 26.3 pg (25.7-33.7); MEAN CELL VOLUME 79.8 fl (80-96); MEAN PLT VOLUME 7.9 fl (7.5-11.1); MONO % 8.1 % (3.8-10.2); NEUT % 81.3 % (42.8-82.8); PLATELET COUNT 333 K/MM3 (134-434); RBC 4.29 M/mm3 (3.60-5.2); RDW 16.5 % (11.6-15.6); WHITE BLOOD COUNT 12.6 K/mm3 (4.0-10.0)
[2019-09-08 09:25] LABS: BLOOD UREA NITROGEN 5.5 mg/dL (7-18); CALCIUM 8.1 mg/dL (8.5-10.1); CREATININE 0.3 mg/dL (0.55-1.3); MAGNESIUM 2.1 mg/dL (1.8-2.4); PHOSPHOROUS 3.5 mg/dL (2.5-4.9); POTASSIUM 3.5 mmol/L (3.5-5.1)
[2019-09-08] MEDS: ENOXAPARIN NA (PORCINE) 40 MG/0.4 ML DISP.SYRIN SQ SCH (09:43)
[2019-09-08] MEDS: PANTOPRAZOLE SODIUM 40 MG VIAL IVPUSH SCH (09:44)
[2019-09-08] MEDS ORDERED: INSULIN (NOVOLOG) ASPART 100 UNITS/ML 10ML VIAL ONE ×2 (12:01→21:07)
--- NOTE | 2019-09-08 13:04 | PN ---
Progress Note, Physician History of Present Illness: patient still with abd pain slightly better but pain still present ct scan noted - Current Medication List Current Medications: Active Medications Acetaminophen (Tylenol -) 650 mg PO Q6H PRN PRN Reason: PAIN OR FEVER Bisacodyl (Dulcolax Suppository -) 10 mg MD DAILY PRN PRN Reason: CONSTIPATION Enoxaparin Sodium (Lovenox -) 40 mg SQ DAILY [facility] Last Admin: 09/08/19 09:43 Dose: 40 mg Gemfibrozil (Lopid -) 600 mg PO BID@0700,1630 [facility] Last Admin: 09/08/19 06:10 Dose: 600 mg Dextrose/Lactated Ringer's (D5-Lr -) 1,000 mls @ 75 mls/hr IV ASDIR [facility] Last Admin: 09/07/19 21:32 Dose: 75 mls/hr Insulin Aspart (Novolog Vial Sliding Scale -) 1 vial SQ Q6H [facility]; Protocol Last Admin: 09/08/19 12:15 Dose: 2 units Insulin Detemir (Levemir Vial) 12 units SQ HS [facility] Last Admin: 09/07/19 21:24 Dose: 12 units Morphine Sulfate (Morphine Sulfate) 2 mg IVPUSH Q4H PRN PRN Reason: PAIN LEVEL 6-10 Last Admin: 09/08/19 10:53 Dose: 2 mg Ondansetron HCl (Zofran Injection) 4 mg IVPUSH Q4H PRN PRN Reason: NAUSEA AND/OR VOMITING Pantoprazole Sodium (Protonix Iv) 40 mg IVPUSH BID [facility] Last Admin: 09/08/19 09:44 Dose: 40 mg - Objective Vital Signs: Vital Signs Temperature 98.3 F 09/08/19 06:00 Pulse Rate 102 H 09/08/19 06:00 Respiratory Rate 20 09/08/19 10:00 Blood Pressure 132/79 09/08/19 06:00 O2 Sat by Pulse Oximetry (%) 94 L 09/06/19 09:00 Constitutional: Yes: Calm, Mild Distress Cardiovascular: Yes: Regular Rate and Rhythm Respiratory: Yes: Regular, CTA Bilaterally Gastrointestinal: Yes: Soft, Hypoactive Bowel Sounds, Tenderness Musculoskeletal: Yes: WNL Extremities: Yes: WNL Neurological: Yes: Alert, Oriented Psychiatric: Yes: Alert, Oriented Labs: CBC, BMP 09/08/19 08:35 09/08/19 08:35 Assessment/Plan 34 year old woman with a history of gestational diabetes who presented to the ED with epigastric pain. 1. Acute pancreatitis 2 Type 2 DM, uncontrolled 3 Leukocytosis 4 UTI 5 abd pain plan continue hydration no abx close watch hydration rest as per the team
--- NOTE | 2019-09-08 13:42 | PN ---
Teaching Attending Note Name of Resident: Mehran Benoit ATTENDING PHYSICIAN STATEMENT I saw and evaluated the patient. I reviewed the resident's note and discussed the case with the resident. I agree with the resident's findings and plan as documented with exceptions below. SUBJECTIVE: Patient seen and examined. Abdominal pain better, tolerating diet well. No new complaints. OBJECTIVE: Vital Signs Period Temp Pulse Resp BP Sys/Christensen Pulse Ox Last 24 Hr 98.3 F-99.8 F 102-106 18-20 117-136/73-81 Intake & Output 09/05/19 09/06/19 09/07/19 09/08/19 23:59 23:59 23:59 23:59 Intake Total 5070.2 3420 2320 600 Output Total 1700 1100 Balance 3370.2 2320 2320 600 Weight 121 lb 12.8 oz 121 lb general: sitting in bed, no acute distress Chest: CTAB, no rales or wheezing Abdomen:Soft, mild epigastric tenderness, no voluntary or involuntary guarding or rigidity, pos bowel sounds extremities: no edema Home Medications Medication Instructions Recorded NK [No Known Home Medication] 09/03/19 Active Medications Acetaminophen (Tylenol -) 650 mg PO Q6H PRN PRN Reason: PAIN OR FEVER Bisacodyl (Dulcolax Suppository -) 10 mg GA DAILY PRN PRN Reason: CONSTIPATION Enoxaparin Sodium (Lovenox -) 40 mg SQ DAILY [facility] Last Admin: 09/08/19 09:43 Dose: 40 mg Gemfibrozil (Lopid -) 600 mg PO BID@0700,1630 [facility] Last Admin: 09/08/19 06:10 Dose: 600 mg Dextrose/Lactated Ringer's (D5-Lr -) 1,000 mls @ 75 mls/hr IV ASDIR [facility] Last Admin: 09/07/19 21:32 Dose: 75 mls/hr Insulin Aspart (Novolog Vial Sliding Scale -) 1 vial SQ Q6H [facility]; Protocol Last Admin: 09/08/19 12:15 Dose: 2 units Insulin Detemir (Levemir Vial) 12 units SQ HS [facility] Last Admin: 09/07/19 21:24 Dose: 12 units Morphine Sulfate (Morphine Sulfate) 2 mg IVPUSH Q4H PRN PRN Reason: PAIN LEVEL 6-10 Last Admin: 09/08/19 10:53 Dose: 2 mg Ondansetron HCl (Zofran Injection) 4 mg IVPUSH Q4H PRN PRN Reason: NAUSEA AND/OR VOMITING Pantoprazole Sodium (Protonix Iv) 40 mg IVPUSH BID [facility] Last Admin: 09/08/19 09:44 Dose: 40 mg Laboratory Results - last 24 hr 09/07/19 09/07/19 09/08/19 16:59 21:22 06:08 WBC RBC Hgb Hct MCV MCH MCHC RDW Plt Count MPV Absolute Neuts (auto) Neutrophils % Lymphocytes % Monocytes % Eosinophils % Basophils % Nucleated RBC % Sodium Potassium Chloride Carbon Dioxide Anion Gap BUN Creatinine Est GFR (CKD-EPI)AfAm Est GFR (CKD-EPI)NonAf POC Glucometer 136 167 139 Random Glucose Calcium Phosphorus Magnesium 09/08/19 09/08/19 09/08/19 08:35 08:35 11:47 WBC 12.6 H RBC 4.29 Hgb 11.3 Hct 34.2 MCV 79.8 L MCH 26.3 MCHC 33.0 RDW 16.5 H Plt Count 333 D MPV 7.9 Absolute Neuts (auto) 10.2 H Neutrophils % 81.3 Lymphocytes % 9.6 Monocytes % 8.1 Eosinophils % 0.6 Basophils % 0.4 Nucleated RBC % 0 Sodium 135 L Potassium 3.5 Chloride 102 Carbon Dioxide 22 Anion Gap 11 BUN 5.5 L Creatinine 0.3 L Est GFR (CKD-EPI)AfAm 170.72 Est GFR (CKD-EPI)NonAf 147.30 POC Glucometer 188 Random Glucose 146 H Calcium 8.1 L Phosphorus 3.5 Magnesium 2.1 ASSESSMENT AND PLAN: 34 yof with PMHx of gestational DM in 2018, admitted with severe pancreatitis, hypertriglyceridemia and hyperglycemia -Severe acute pancreatitis -Hypertriglyceridemia -Hyperglycemia with new onset type II DM -LLL pleural effusion -h/o gestational DM Plan: Clinically improved. GI input noted. Advance to solid diet. Will dc IVF once tolerating well. ID input noted, monitor off abx. Continue gemfibrozil. Levemir teaching provided. No new respiratory symptoms, Incentive spirometry and monitor for now. Low clinical suspicion for LLL infectious process. DVTPPX lovenox Dispo dc home in 24 hours if tolerating diet well and no new concerns. Discussed with patient.
[2019-09-08 14:23] LABS: ANISOCYTOSIS 2+; MACROCYTOSIS 1+; PLATELET ESTIMATE NORMAL
--- NOTE | 2019-09-08 15:37 | PN.GI ---
GI Progress Note Subjective: No abdominal pain Tolerating clears Not using incentive spirometer - Objective Vital Signs: Vital Signs Temperature 99.8 F H 09/08/19 14:00 Pulse Rate 106 H 09/08/19 14:00 Respiratory Rate 20 09/08/19 14:00 Blood Pressure 115/73 09/08/19 14:00 O2 Sat by Pulse Oximetry (%) 94 L 09/06/19 09:00 Constitutional: Calm Eyes: No: Sclera Icterus Cardiovascular: Yes: Tachycardia Respiratory: Yes: Rhonchi (left lung base) Gastrointestinal Inspection: No: Distention ...Auscultate: Yes: Normoactive Bowel Sounds ...Palpate: Yes: Soft. No: Hepatomegaly, Splenomegaly, Tenderness ...Percussion: No: Tympanitic Edema: No (No LE edema) Neurological: Yes: Alert Labs: CBC, BMP 09/08/19 08:35 09/08/19 08:35 Problem List - Problems (1) Pancreatitis Assessment/Plan: Clinically much improved. Pain free on exam. Advance diet Advised that she use her incentive spirometer 10 times per hour. Stopped protonix. No need Patient with left lower lobe finding on recent CXR and still with rhonchi at her left lung base. ? PNA. ID to comment. As above, advised incentive spirometry CRP in AM Code(s): K85.90 - ACUTE PANCREATITIS WITHOUT NECROSIS OR INFECTION, UNSP Qualifiers: Chronicity: acute Pancreatitis type: other Acute pancreatitis complication: no infection or necrosis Qualified Code(s): K85.80 - Other acute pancreatitis without necrosis or infection
--- NOTE | 2019-09-08 18:19 | PN ---
Physical Exam: SUBJECTIVE: Patient seen and examined. Tolerated FLD. Had BM. IS ~1000ml OBJECTIVE: Vital Signs Period Temp Pulse Resp BP Sys/Christensen Pulse Ox Last 24 Hr 98.3 F-99.8 F 102-106 20-20 115-136/73-81 GENERAL: Awake, alert, and fully oriented, in no acute distress. HEAD: Normal with no signs of trauma. No temporal wasting EYES: extraocular movements intact, sclera anicteric, conjunctiva clear. EARS, NOSE, THROAT: Moist mucous membranes. NECK: Normal range of motion, supple without lymphadenopathy, JVD, or masses. LUNGS: Breath sounds equal, clear to auscultation bilaterally. No wheezes, and no crackles. No accessory muscle use. IS ~1000cc HEART: Regular rate and rhythm, normal S1 and S2 without murmur, rub or gallop. ABDOMEN: Soft, mildly distended, normoactive bowel sounds, no guarding, no rebound. Tenderness with deep palpitation of the epigastrium. Neg CVA MUSCULOSKELETAL: Normal range of motion at all joints. No bony deformities or tenderness. LOWER EXTREMITIES: warm, well-perfused. No calf tenderness. No peripheral edema. NEUROLOGICAL: Normal speech. SKIN: Warm, dry, normal turgor, no rashes or lesions noted, normal capillary refill Laboratory Results - last 24 hr 09/07/19 09/08/19 09/08/19 21:22 06:08 08:35 WBC 12.6 H RBC 4.29 Hgb 11.3 Hct 34.2 MCV 79.8 L MCH 26.3 MCHC 33.0 RDW 16.5 H Plt Count 333 D MPV 7.9 Absolute Neuts (auto) 10.2 H Neutrophils % 81.3 Neutrophils % (Manual) 69.2 Band Neutrophils % 16.3 Lymphocytes % 9.6 Lymphocytes % (Manual) 3.9 L D Monocytes % 8.1 Monocytes % (Manual) 8 Eosinophils % 0.6 Eosinophils % (Manual) 0.0 D Basophils % 0.4 Basophils % (Manual) 0.0 Myelocytes % (Man) 0 Promyelocytes % (Man) 0 Blast Cells % (Manual) 0 Nucleated RBC % 0 Metamyelocytes 0 Hypochromia 0 Platelet Estimate Normal Polychromasia 1+ Poikilocytosis 1+ Anisocytosis 2+ Microcytosis 1+ Macrocytosis 1+ Sodium Potassium Chloride Carbon Dioxide Anion Gap BUN Creatinine Est GFR (CKD-EPI)AfAm Est GFR (CKD-EPI)NonAf POC Glucometer 167 139 Random Glucose Calcium Phosphorus Magnesium 09/08/19 09/08/19 09/08/19 08:35 11:47 16:38 WBC RBC Hgb Hct MCV MCH MCHC RDW Plt Count MPV Absolute Neuts (auto) Neutrophils % Neutrophils % (Manual) Band Neutrophils % Lymphocytes % Lymphocytes % (Manual) Monocytes % Monocytes % (Manual) Eosinophils % Eosinophils % (Manual) Basophils % Basophils % (Manual) Myelocytes % (Man) Promyelocytes % (Man) Blast Cells % (Manual) Nucleated RBC % Metamyelocytes Hypochromia Platelet Estimate Polychromasia Poikilocytosis Anisocytosis Microcytosis Macrocytosis Sodium 135 L Potassium 3.5 Chloride 102 Carbon Dioxide 22 Anion Gap 11 BUN 5.5 L Creatinine 0.3 L Est GFR (CKD-EPI)AfAm 170.72 Est GFR (CKD-EPI)NonAf 147.30 POC Glucometer 188 171 Random Glucose 146 H Calcium 8.1 L Phosphorus 3.5 Magnesium 2.1 Active Medications Generic Name Dose Route Start Last Admin Trade Name Freq PRN Reason Stop Dose Admin Acetaminophen 650 mg 09/06/19 18:13 Tylenol - PO Q6H PRN PAIN OR FEVER Bisacodyl 10 mg 09/06/19 14:23 Dulcolax Suppository - IN DAILY PRN CONSTIPATION Enoxaparin Sodium 40 mg 09/07/19 10:00 09/08/19 09:43 Lovenox - SQ 40 mg DAILY [facility] Administration Gemfibrozil 600 mg 09/06/19 16:30 09/08/19 16:58 Lopid - PO 600 mg BID@0700,1630 [facility] Administration Dextrose/Lactated Ringer's 1,000 mls @ 75 mls/hr 09/06/19 19:15 09/07/19 21: 32 D5-Lr - IV 75 mls/hr ASDIR [facility] Administration Insulin Aspart 1 vial 09/08/19 16:30 09/08/19 16:58 Novolog Vial Sliding Scale - SQ 2 units ACHS [facility] Administration Protocol Insulin Detemir 12 units 09/06/19 22:00 09/07/19 21:24 Levemir Vial SQ 12 units HS [facility] Administration Morphine Sulfate 2 mg 09/06/19 14:23 09/08/19 10:53 Morphine Sulfate IVPUSH 2 mg Q4H PRN Administration PAIN LEVEL 6-10 Ondansetron HCl 4 mg 09/06/19 14:23 Zofran Injection IVPUSH Q4H PRN NAUSEA AND/OR VOMITING Vital Signs Temp 99.8 F H 09/08/19 14:00 Pulse 106 H 09/08/19 14:00 Resp 20 09/08/19 14:00 BP 115/73 09/08/19 14:00 Pulse Ox 94 L 09/06/19 09:00 Intake & Output 09/07/19 09/08/19 09/08/19 23:59 11:59 23:59 Intake Total 1670 600 500 Balance 1670 600 500 Intake: IV 920 600 D5-Lr - 1,000 ml @ 75 mls 900 600 /hr IV ASDIR [facility] Rx#: [id number] Saline Lock 20 IVPB 50 Oral 700 500 Other: Voiding Method Toilet Toilet Toilet # Unmeasured Voids Void 3 Bowel Movement Yes # Bowel Movements 1 ASSESSMENT/PLAN: 34F w/ pmh of gestational diabetes(2018, that pt states resolved) presenting with severe epigastric abdominal pain, lipase 4937, triglycerides 2961, suggestive of acute pancreatitis 2/2 hypertriglyceridemia #continued abd pain w/ abd distention -- resolving >CT A/P(09/05/19) -- extensive peripancreatic fluid. No pancreatic necrosis/ abscess #acute pancreatitis 2/2 hypertriglyceridemia >RUQ US(09/03/19): fatty liver, GB w/o stones or wall thickening >lipase 4937 >triglycerides 2961 --> 1167 --> 570-->457 -insulin gtt dc'd -levemir 12U QHS, ISS q6h -gemfibrozil 600mg BID -pain control: morphine 2mg q6h PRN -GI consult: --advance diet --no protonix #nausea -ondansetron -pantoprazole -- dc'd #UTI >UA: (-)LE, (-)nitrite, (4+)ketones >UCX: strept Agalactiae Group B -ceftriaxone --dc'd -zosyn --dc'd -ID -- no abx #Diabetes >blood sugar 171 >HbA1c ~10.9 -ISS q6h, levemir -patient demonstrating understanding of insulin -Endo consult: --Continue IVF with D5 until pt is able to tolerate full diet. Adjust rate to maintain blood sugar 120 to 180 #hypokalemia -replete PRN #leukocytosis -- improving >CXR: possible RUL granuloma >WBC 14.6(neutrophils 90.5%) -->10.5--> 8.4 #DVT prophylaxis -lovenox #FEN -diabetic diet -IVF: D5LR @75 -- will dc once tolerating meals #Dispo: -med surg -dc plan: likely home Visit type - Emergency Visit Emergency Visit: No - New Patient This patient is new to me today: No - Critical Care Critical Care patient: No ATTENDING PHYSICIAN STATEMENT I saw and evaluated the patient. I reviewed the resident's note and discussed the case with the resident. I agree with the resident's findings and plan as documented. SUBJECTIVE: OBJECTIVE: ASSESSMENT AND PLAN:
[2019-09-08] MEDS: DEXTROSE 5%-LACTATED RINGERS 1,000 ML IV SCH (22:01)
[2019-09-08] MEDS: INSULIN (LEVEMIR) 100 UNITS/ML UNITS SQ SCH (22:03)
[2019-09-09] MEDS: DEXTROSE 5%-LACTATED RINGERS 1,000 ML IV SCH (01:00)
[2019-09-09] MEDS: MORPHINE SULFATE 2 MG/ML VIAL IVPUSH PRN ×2 (02:02→07:57)
[2019-09-09] MEDS: GEMFIBROZIL 600 MG TABLET (FP) PO SCH ×2 (06:46→17:00)
[2019-09-09] MEDS: INSULIN SLIDING SCALE (NOVOLOG) 1 VIAL SQ SCH ×3 (06:46→16:58)
[2019-09-09] MEDS: ENOXAPARIN NA (PORCINE) 40 MG/0.4 ML DISP.SYRIN SQ SCH (09:46)
[2019-09-09 10:51] LABS: BASO % 0.3 % (0-2.0); EOS % 0.5 % (0-4.5); HEMATOCRIT 33.2 % (32.4-45.2); HEMOGLOBIN 11.1 GM/dL (10.7-15.3); LYMPH % 8.2 % (8-40); MCH 26.4 pg (25.7-33.7); MCHC 33.3 g/dl (32.0-36.0); MEAN CELL VOLUME 79.2 fl (80-96); MEAN PLT VOLUME 7.7 fl (7.5-11.1); MONO % 7.3 % (3.8-10.2); NEUT % 83.7 % (42.8-82.8); PLATELET COUNT 347 K/MM3 (134-434); RBC 4.19 M/mm3 (3.60-5.2); RDW 16.3 % (11.6-15.6); WHITE BLOOD COUNT 12.2 K/mm3 (4.0-10.0)
[2019-09-09 11:32] LABS: BLOOD UREA NITROGEN 6.7 mg/dL (7-18); CALCIUM 8.4 mg/dL (8.5-10.1); CREATININE 0.4 mg/dL (0.55-1.3); POTASSIUM 3.7 mmol/L (3.5-5.1)
--- NOTE | 2019-09-09 13:03 | PN ---
Physical Exam: SUBJECTIVE: Patient seen and examined, abdominal pain markedly improved, tolerating diet well. No fevers, chills, cough, dyspnea or urinary concerns. OBJECTIVE: Vital Signs Period Temp Pulse Resp BP Sys/Christensen Pulse Ox Last 24 Hr 98.9 F-99.9 F 99-106 20-803 104-128/59-74 94 Intake & Output 09/06/19 09/07/19 09/08/19 09/09/19 23:59 23:59 23:59 23:59 Intake Total 3420 2320 1525 825 Output Total 1100 Balance 2320 2320 1525 825 Weight 121 lb general: Sitting in bed, no acute distress Chest: CTAB, no rales or wheezing, good air entry bilaterally Abdomen:Soft, mild epigastric tenderness, no voluntary or involuntary guarding or rigidity, pos bowel sounds extremities: no edema neck: soft, supple Laboratory Results - last 24 hr 09/03/19 09/03/19 09/03/19 07:50 07:50 07:54 WBC 14.6 H RBC 4.60 Hgb 13.0 Hct 36.6 D MCV 79.5 L MCH 28.3 D MCHC 35.6 RDW 16.2 H Plt Count 215 D MPV 9.4 Absolute Neuts (auto) 13.2 H Neutrophils % 90.5 H Neutrophils % (Manual) 80.8 Band Neutrophils % 11.1 Lymphocytes % 5.5 L D Lymphocytes % (Manual) 8.1 Monocytes % 3.0 L Monocytes % (Manual) 0 L Eosinophils % 0.2 Eosinophils % (Manual) 0.0 Basophils % 0.8 Basophils % (Manual) 0.0 Myelocytes % (Man) 0 Promyelocytes % (Man) 0 Blast Cells % (Manual) 0 Nucleated RBC % 0 Metamyelocytes 0 Hypochromia Platelet Estimate Adequate Polychromasia Poikilocytosis Anisocytosis Microcytosis Macrocytosis Sodium Potassium Chloride Carbon Dioxide Anion Gap BUN Creatinine Est GFR (CKD-EPI)AfAm Est GFR (CKD-EPI)NonAf POC Glucometer Random Glucose Hemoglobin A1c % Calcium Total Bilirubin AST ALT Alkaline Phosphatase C-Reactive Protein Total Protein Albumin Triglycerides Cholesterol Total LDL Cholesterol HDL Cholesterol Lipase Urine Color Yellow Urine Appearance Clear Urine pH 6.0 Ur Specific Patterson 1.020 Urine Protein Negative Urine Glucose (UA) 2+ H Urine Ketones 4+ H Urine Blood 3+ H Urine Nitrite Negative Urine Bilirubin Negative Urine Urobilinogen 0.2 Ur Leukocyte Esterase Negative Urine WBC (Auto) 2 Urine RBC (Auto) 0 Urine Casts (Auto) 1 U Epithel Cells (Auto) 2.7 Urine Bacteria (Auto) 38.0 Urine HCG, Qual Negative 09/03/19 09/03/19 09/03/19 07:54 07:54 10:00 WBC RBC Hgb Hct MCV MCH MCHC RDW Plt Count MPV Absolute Neuts (auto) Neutrophils % Neutrophils % (Manual) Band Neutrophils % Lymphocytes % Lymphocytes % (Manual) Monocytes % Monocytes % (Manual) Eosinophils % Eosinophils % (Manual) Basophils % Basophils % (Manual) Myelocytes % (Man) Promyelocytes % (Man) Blast Cells % (Manual) Nucleated RBC % Metamyelocytes Hypochromia Platelet Estimate Polychromasia Poikilocytosis Anisocytosis Microcytosis Macrocytosis Sodium 131 L Potassium 3.4 L Chloride 97 L Carbon Dioxide 24 Anion Gap 10 BUN 9.7 Creatinine 0.5 L Est GFR (CKD-EPI)AfAm 144.31 Est GFR (CKD-EPI)NonAf 124.51 POC Glucometer Random Glucose 297 H Hemoglobin A1c % 10.9 H Calcium 7.3 L Total Bilirubin 0.6 AST ALT Alkaline Phosphatase 145 H C-Reactive Protein Total Protein 6.8 Albumin 3.2 L Triglycerides 2961 H Cholesterol 363 H Total LDL Cholesterol 111 H HDL Cholesterol 25 L Lipase 4937 H Urine Color Urine Appearance Urine pH Ur Specific Patterson Urine Protein Urine Glucose (UA) Urine Ketones Urine Blood Urine Nitrite Urine Bilirubin Urine Urobilinogen Ur Leukocyte Esterase Urine WBC (Auto) Urine RBC (Auto) Urine Casts (Auto) U Epithel Cells (Auto) Urine Bacteria (Auto) Urine HCG, Qual 09/03/19 09/03/19 09/03/19 12:42 17:33 19:28 WBC RBC Hgb Hct MCV MCH MCHC RDW Plt Count MPV Absolute Neuts (auto) Neutrophils % Neutrophils % (Manual) Band Neutrophils % Lymphocytes % Lymphocytes % (Manual) Monocytes % Monocytes % (Manual) Eosinophils % Eosinophils % (Manual) Basophils % Basophils % (Manual) Myelocytes % (Man) Promyelocytes % (Man) Blast Cells % (Manual) Nucleated RBC % Metamyelocytes Hypochromia Platelet Estimate Polychromasia Poikilocytosis Anisocytosis Microcytosis Macrocytosis Sodium 131 L Potassium 3.0 L Chloride 99 Carbon Dioxide 24 Anion Gap 9 BUN 4.5 L Creatinine 0.3 L Est GFR (CKD-EPI)AfAm 170.72 Est GFR (CKD-EPI)NonAf 147.30 POC Glucometer 186 193 Random Glucose 201 H Hemoglobin A1c % Calcium 6.6 L* Total Bilirubin AST ALT Alkaline Phosphatase C-Reactive Protein Total Protein Albumin Triglycerides Cholesterol Total LDL Cholesterol HDL Cholesterol Lipase Urine Color Urine Appearance Urine pH Ur Specific Patterson Urine Protein Urine Glucose (UA) Urine Ketones Urine Blood Urine Nitrite Urine Bilirubin Urine Urobilinogen Ur Leukocyte Esterase Urine WBC (Auto) Urine RBC (Auto) Urine Casts (Auto) U Epithel Cells (Auto) Urine Bacteria (Auto) Urine HCG, Qual 09/03/19 09/03/19 09/03/19 20:00 21:04 22:10 WBC RBC Hgb Hct MCV MCH MCHC RDW Plt Count MPV Absolute Neuts (auto) Neutrophils % Neutrophils % (Manual) Band Neutrophils % Lymphocytes % Lymphocytes % (Manual) Monocytes % Monocytes % (Manual) Eosinophils % Eosinophils % (Manual) Basophils % Basophils % (Manual) Myelocytes % (Man) Promyelocytes % (Man) Blast Cells % (Manual) Nucleated RBC % Metamyelocytes Hypochromia Platelet Estimate Polychromasia Poikilocytosis Anisocytosis Microcytosis Macrocytosis Sodium Potassium Chloride Carbon Dioxide Anion Gap BUN Creatinine Est GFR (CKD-EPI)AfAm Est GFR (CKD-EPI)NonAf POC Glucometer [phone] Random Glucose Hemoglobin A1c % Calcium Total Bilirubin AST ALT Alkaline Phosphatase C-Reactive Protein Total Protein Albumin Triglycerides Cholesterol Total LDL Cholesterol HDL Cholesterol Lipase Urine Color Urine Appearance Urine pH Ur Specific Patterson Urine Protein Urine Glucose (UA) Urine Ketones Urine Blood Urine Nitrite Urine Bilirubin Urine Urobilinogen Ur Leukocyte Esterase Urine WBC (Auto) Urine RBC (Auto) Urine Casts (Auto) U Epithel Cells (Auto) Urine Bacteria (Auto) Urine HCG, Qual 09/03/19 09/04/19 09/04/19 23:07 00:21 01:22 WBC RBC Hgb Hct MCV MCH MCHC RDW Plt Count MPV Absolute Neuts (auto) Neutrophils % Neutrophils % (Manual) Band Neutrophils % Lymphocytes % Lymphocytes % (Manual) Monocytes % Monocytes % (Manual) Eosinophils % Eosinophils % (Manual) Basophils % Basophils % (Manual) Myelocytes % (Man) Promyelocytes % (Man) Blast Cells % (Manual) Nucleated RBC % Metamyelocytes Hypochromia Platelet Estimate Polychromasia Poikilocytosis Anisocytosis Microcytosis Macrocytosis Sodium Potassium Chloride Carbon Dioxide Anion Gap BUN Creatinine Est GFR (CKD-EPI)AfAm Est GFR (CKD-EPI)NonAf POC Glucometer [phone] Random Glucose Hemoglobin A1c % Calcium Total Bilirubin AST ALT Alkaline Phosphatase C-Reactive Protein Total Protein Albumin Triglycerides Cholesterol Total LDL Cholesterol HDL Cholesterol Lipase Urine Color Urine Appearance Urine pH Ur Specific Patterson Urine Protein Urine Glucose (UA) Urine Ketones Urine Blood Urine Nitrite Urine Bilirubin Urine Urobilinogen Ur Leukocyte Esterase Urine WBC (Auto) Urine RBC (Auto) Urine Casts (Auto) U Epithel Cells (Auto) Urine Bacteria (Auto) Urine HCG, Qual 09/04/19 09/04/19 09/04/19 02:19 03:21 04:24 WBC RBC Hgb Hct MCV MCH MCHC RDW Plt Count MPV Absolute Neuts (auto) Neutrophils % Neutrophils % (Manual) Band Neutrophils % Lymphocytes % Lymphocytes % (Manual) Monocytes % Monocytes % (Manual) Eosinophils % Eosinophils % (Manual) Basophils % Basophils % (Manual) Myelocytes % (Man) Promyelocytes % (Man) Blast Cells % (Manual) Nucleated RBC % Metamyelocytes Hypochromia Platelet Estimate Polychromasia Poikilocytosis Anisocytosis Microcytosis Macrocytosis Sodium Potassium Chloride Carbon Dioxide Anion Gap BUN Creatinine Est GFR (CKD-EPI)AfAm Est GFR (CKD-EPI)NonAf POC Glucometer 172 154 165 Random Glucose Hemoglobin A1c % Calcium Total Bilirubin AST ALT Alkaline Phosphatase C-Reactive Protein Total Protein Albumin Triglycerides Cholesterol Total LDL Cholesterol HDL Cholesterol Lipase Urine Color Urine Appearance Urine pH Ur Specific Patterson Urine Protein Urine Glucose (UA) Urine Ketones Urine Blood Urine Nitrite Urine Bilirubin Urine Urobilinogen Ur Leukocyte Esterase Urine WBC (Auto) Urine RBC (Auto) Urine Casts (Auto) U Epithel Cells (Auto) Urine Bacteria (Auto) Urine HCG, Qual 09/04/19 09/04/19 09/04/19 05:40 06:49 07:44 WBC RBC Hgb Hct MCV MCH MCHC RDW Plt Count MPV Absolute Neuts (auto) Neutrophils % Neutrophils % (Manual) Band Neutrophils % Lymphocytes % Lymphocytes % (Manual) Monocytes % Monocytes % (Manual) Eosinophils % Eosinophils % (Manual) Basophils % Basophils % (Manual) Myelocytes % (Man) Promyelocytes % (Man) Blast Cells % (Manual) Nucleated RBC % Metamyelocytes Hypochromia Platelet Estimate Polychromasia Poikilocytosis Anisocytosis Microcytosis Macrocytosis Sodium Potassium Chloride Carbon Dioxide Anion Gap BUN Creatinine Est GFR (CKD-EPI)AfAm Est GFR (CKD-EPI)NonAf POC Glucometer 123 158 200 Random Glucose Hemoglobin A1c % Calcium Total Bilirubin AST ALT Alkaline Phosphatase C-Reactive Protein Total Protein Albumin Triglycerides Cholesterol Total LDL Cholesterol HDL Cholesterol Lipase Urine Color Urine Appearance Urine pH Ur Specific Patterson Urine Protein Urine Glucose (UA) Urine Ketones Urine Blood Urine Nitrite Urine Bilirubin Urine Urobilinogen Ur Leukocyte Esterase Urine WBC (Auto) Urine RBC (Auto) Urine Casts (Auto) U Epithel Cells (Auto) Urine Bacteria (Auto) Urine HCG, Qual 09/04/19 09/04/19 09/04/19 08:44 09:56 11:27 WBC RBC Hgb Hct MCV MCH MCHC RDW Plt Count MPV Absolute Neuts (auto) Neutrophils % Neutrophils % (Manual) Band Neutrophils % Lymphocytes % Lymphocytes % (Manual) Monocytes % Monocytes % (Manual) Eosinophils % Eosinophils % (Manual) Basophils % Basophils % (Manual) Myelocytes % (Man) Promyelocytes % (Man) Blast Cells % (Manual) Nucleated RBC % Metamyelocytes Hypochromia Platelet Estimate Polychromasia Poikilocytosis Anisocytosis Microcytosis Macrocytosis Sodium Potassium Chloride Carbon Dioxide Anion Gap BUN Creatinine Est GFR (CKD-EPI)AfAm Est GFR (CKD-EPI)NonAf POC Glucometer [phone] Random Glucose Hemoglobin A1c % Calcium Total Bilirubin AST ALT Alkaline Phosphatase C-Reactive Protein Total Protein Albumin Triglycerides Cholesterol Total LDL Cholesterol HDL Cholesterol Lipase Urine Color Urine Appearance Urine pH Ur Specific Patterson Urine Protein Urine Glucose (UA) Urine Ketones Urine Blood Urine Nitrite Urine Bilirubin Urine Urobilinogen Ur Leukocyte Esterase Urine WBC (Auto) Urine RBC (Auto) Urine Casts (Auto) U Epithel Cells (Auto) Urine Bacteria (Auto) Urine HCG, Qual 09/04/19 09/04/19 09/04/19 12:43 14:22 16:00 WBC RBC Hgb Hct MCV MCH MCHC RDW Plt Count MPV Absolute Neuts (auto) Neutrophils % Neutrophils % (Manual) Band Neutrophils % Lymphocytes % Lymphocytes % (Manual) Monocytes % Monocytes % (Manual) Eosinophils % Eosinophils % (Manual) Basophils % Basophils % (Manual) Myelocytes % (Man) Promyelocytes % (Man) Blast Cells % (Manual) Nucleated RBC % Metamyelocytes Hypochromia Platelet Estimate Polychromasia Poikilocytosis Anisocytosis Microcytosis Macrocytosis Sodium Potassium Chloride Carbon Dioxide Anion Gap BUN Creatinine Est GFR (CKD-EPI)AfAm Est GFR (CKD-EPI)NonAf POC Glucometer 210 206 166 Random Glucose Hemoglobin A1c % Calcium Total Bilirubin AST ALT Alkaline Phosphatase C-Reactive Protein Total Protein Albumin Triglycerides Cholesterol Total LDL Cholesterol HDL Cholesterol Lipase Urine Color Urine Appearance Urine pH Ur Specific Patterson Urine Protein Urine Glucose (UA) Urine Ketones Urine Blood Urine Nitrite Urine Bilirubin Urine Urobilinogen Ur Leukocyte Esterase Urine WBC (Auto) Urine RBC (Auto) Urine Casts (Auto) U Epithel Cells (Auto) Urine Bacteria (Auto) Urine HCG, Qual 09/04/19 09/04/19 09/04/19 17:03 18:07 19:03 WBC RBC Hgb Hct MCV MCH MCHC RDW Plt Count MPV Absolute Neuts (auto) Neutrophils % Neutrophils % (Manual) Band Neutrophils % Lymphocytes % Lymphocytes % (Manual) Monocytes % Monocytes % (Manual) Eosinophils % Eosinophils % (Manual) Basophils % Basophils % (Manual) Myelocytes % (Man) Promyelocytes % (Man) Blast Cells % (Manual) Nucleated RBC % Metamyelocytes Hypochromia Platelet Estimate Polychromasia Poikilocytosis Anisocytosis Microcytosis Macrocytosis Sodium Potassium Chloride Carbon Dioxide Anion Gap BUN Creatinine Est GFR (CKD-EPI)AfAm Est GFR (CKD-EPI)NonAf POC Glucometer 141 134 138 Random Glucose Hemoglobin A1c % Calcium Total Bilirubin AST ALT Alkaline Phosphatase C-Reactive Protein Total Protein Albumin Triglycerides Cholesterol Total LDL Cholesterol HDL Cholesterol Lipase Urine Color Urine Appearance Urine pH Ur Specific Patterson Urine Protein Urine Glucose (UA) Urine Ketones Urine Blood Urine Nitrite Urine Bilirubin Urine Urobilinogen Ur Leukocyte Esterase Urine WBC (Auto) Urine RBC (Auto) Urine Casts (Auto) U Epithel Cells (Auto) Urine Bacteria (Auto) Urine HCG, Qual 09/04/19 09/04/19 09/04/19 20:05 21:22 22:18 WBC RBC Hgb Hct MCV MCH MCHC RDW Plt Count MPV Absolute Neuts (auto) Neutrophils % Neutrophils % (Manual) Band Neutrophils % Lymphocytes % Lymphocytes % (Manual) Monocytes % Monocytes % (Manual) Eosinophils % Eosinophils % (Manual) Basophils % Basophils % (Manual) Myelocytes % (Man) Promyelocytes % (Man) Blast Cells % (Manual) Nucleated RBC % Metamyelocytes Hypochromia Platelet Estimate Polychromasia Poikilocytosis Anisocytosis Microcytosis Macrocytosis Sodium Potassium Chloride Carbon Dioxide Anion Gap BUN Creatinine Est GFR (CKD-EPI)AfAm Est GFR (CKD-EPI)NonAf POC Glucometer 133 136 129 Random Glucose Hemoglobin A1c % Calcium Total Bilirubin AST ALT Alkaline Phosphatase C-Reactive Protein Total Protein Albumin Triglycerides Cholesterol Total LDL Cholesterol HDL Cholesterol Lipase Urine Color Urine Appearance Urine pH Ur Specific [place] Urine Protein Urine Glucose (UA) Urine Ketones Urine Blood Urine Nitrite Urine Bilirubin Urine Urobilinogen Ur Leukocyte Esterase Urine WBC (Auto) Urine RBC (Auto) Urine Casts (Auto) U Epithel Cells (Auto) Urine Bacteria (Auto) Urine HCG, Qual 09/04/19 09/08/19 09/08/19 23:32 08:35 16:38 WBC RBC Hgb Hct MCV MCH MCHC RDW Plt Count MPV Absolute Neuts (auto) Neutrophils % Neutrophils % (Manual) 69.2 Band Neutrophils % 16.3 Lymphocytes % Lymphocytes % (Manual) 3.9 L D Monocytes % Monocytes % (Manual) 8 Eosinophils % Eosinophils % (Manual) 0.0 D Basophils % Basophils % (Manual) 0.0 Myelocytes % (Man) 0 Promyelocytes % (Man) 0 Blast Cells % (Manual) 0 Nucleated RBC % Metamyelocytes 0 Hypochromia 0 Platelet Estimate Normal Polychromasia 1+ Poikilocytosis 1+ Anisocytosis 2+ Microcytosis 1+ Macrocytosis 1+ Sodium Potassium Chloride Carbon Dioxide Anion Gap BUN Creatinine Est GFR (CKD-EPI)AfAm Est GFR (CKD-EPI)NonAf POC Glucometer 126 171 Random Glucose Hemoglobin A1c % Calcium Total Bilirubin AST ALT Alkaline Phosphatase C-Reactive Protein Total Protein Albumin Triglycerides Cholesterol Total LDL Cholesterol HDL Cholesterol Lipase Urine Color Urine Appearance Urine pH Ur Specific [place] Urine Protein Urine Glucose (UA) Urine Ketones Urine Blood Urine Nitrite Urine Bilirubin Urine Urobilinogen Ur Leukocyte Esterase Urine WBC (Auto) Urine RBC (Auto) Urine Casts (Auto) U Epithel Cells (Auto) Urine Bacteria (Auto) Urine HCG, Qual 09/08/19 09/09/19 09/09/19 21:04 06:02 10:25 WBC 12.2 H RBC 4.19 Hgb 11.1 Hct 33.2 MCV 79.2 L MCH 26.4 MCHC 33.3 RDW 16.3 H Plt Count 347 MPV 7.7 Absolute Neuts (auto) 10.2 H Neutrophils % 83.7 H Neutrophils % (Manual) Band Neutrophils % Lymphocytes % 8.2 Lymphocytes % (Manual) Monocytes % 7.3 Monocytes % (Manual) Eosinophils % 0.5 Eosinophils % (Manual) Basophils % 0.3 Basophils % (Manual) Myelocytes % (Man) Promyelocytes % (Man) Blast Cells % (Manual) Nucleated RBC % 0 Metamyelocytes Hypochromia Platelet Estimate Polychromasia Poikilocytosis Anisocytosis Microcytosis Macrocytosis Sodium Potassium Chloride Carbon Dioxide Anion Gap BUN Creatinine Est GFR (CKD-EPI)AfAm Est GFR (CKD-EPI)NonAf POC Glucometer 245 212 Random Glucose Hemoglobin A1c % Calcium Total Bilirubin AST ALT Alkaline Phosphatase C-Reactive Protein Total Protein Albumin Triglycerides Cholesterol Total LDL Cholesterol HDL Cholesterol Lipase Urine Color Urine Appearance Urine pH Ur Specific [place] Urine Protein Urine Glucose (UA) Urine Ketones Urine Blood Urine Nitrite Urine Bilirubin Urine Urobilinogen Ur Leukocyte Esterase Urine WBC (Auto) Urine RBC (Auto) Urine Casts (Auto) U Epithel Cells (Auto) Urine Bacteria (Auto) Urine HCG, Qual 09/09/19 09/09/19 10:25 12:03 WBC RBC Hgb Hct MCV MCH MCHC RDW Plt Count MPV Absolute Neuts (auto) Neutrophils % Neutrophils % (Manual) Band Neutrophils % Lymphocytes % Lymphocytes % (Manual) Monocytes % Monocytes % (Manual) Eosinophils % Eosinophils % (Manual) Basophils % Basophils % (Manual) Myelocytes % (Man) Promyelocytes % (Man) Blast Cells % (Manual) Nucleated RBC % Metamyelocytes Hypochromia Platelet Estimate Polychromasia Poikilocytosis Anisocytosis Microcytosis Macrocytosis Sodium 134 L Potassium 3.7 Chloride 100 Carbon Dioxide 26 Anion Gap 8 BUN 6.7 L Creatinine 0.4 L Est GFR (CKD-EPI)AfAm 155.30 Est GFR (CKD-EPI)NonAf 134.00 POC Glucometer 227 Random Glucose 260 H Hemoglobin A1c % Calcium 8.4 L Total Bilirubin AST ALT Alkaline Phosphatase C-Reactive Protein 18.9 H Total Protein Albumin Triglycerides Cholesterol Total LDL Cholesterol HDL Cholesterol Lipase Urine Color Urine Appearance Urine pH Ur Specific Patterson Urine Protein Urine Glucose (UA) Urine Ketones Urine Blood Urine Nitrite Urine Bilirubin Urine Urobilinogen Ur Leukocyte Esterase Urine WBC (Auto) Urine RBC (Auto) Urine Casts (Auto) U Epithel Cells (Auto) Urine Bacteria (Auto) Urine HCG, Qual Active Medications Generic Name Dose Route Start Last Admin Trade Name Freq PRN Reason Stop Dose Admin Acetaminophen 650 mg 09/06/19 18:13 Tylenol - PO Q6H PRN PAIN OR FEVER Bisacodyl 10 mg 09/06/19 14:23 Dulcolax Suppository - [place] DAILY PRN CONSTIPATION Enoxaparin Sodium 40 mg 09/07/19 10:00 09/09/19 09:46 Lovenox - SQ 40 mg DAILY DEBBIE Administration Gemfibrozil 600 mg 09/06/19 16:30 09/09/19 06:46 Lopid - PO 600 mg BID@0700,1630 DEBBIE Administration Insulin Aspart 1 vial 09/08/19 16:30 09/09/19 12:06 Novolog Vial Sliding Scale - SQ 4 units ACHS DEBBIE Administration Protocol Insulin Detemir 12 units 09/06/19 22:00 09/08/19 22:03 Levemir Vial SQ 12 units HS DEBBIE Administration Ondansetron HCl 4 mg 09/06/19 14:23 Zofran Injection IVPUSH Q4H PRN NAUSEA AND/OR VOMITING ASSESSMENT/PLAN: 34 yof with PMHx of gestational DM in 2018, admitted with severe pancreatitis, hypertriglyceridemia and hyperglycemia -Severe acute pancreatitis -Hypertriglyceridemia -Hyperglycemia with new onset type II DM -LLL pleural effusion -h/o gestational DM Plan: Tolerating diet well, Abdominal exam improved. Low grade fevers, clinically improved, no focal s/s. dc IVF. ID input noted, monitor off abx. Continue gemfibrozil. Levemir teaching provided. No new respiratory symptoms, Incentive spirometry and monitor for now. Low clinical suspicion for LLL infectious process. DVTPPX lovenox Dispo dc home in 24 hours if tolerating diet well and no new concerns. Discussed with patient. Visit type - Emergency Visit Emergency Visit: Yes ED Registration Date: 09/03/19 Care time: The patient presented to the Emergency Department on the above date and was hospitalized for further evaluation of their emergent condition. - New Patient This patient is new to me today: No - Critical Care Critical Care patient: No - Discharge Referral Referred to [facility] No
--- NOTE | 2019-09-09 14:56 | PN ---
Progress Note (short form) - Note Progress Note: Feels better minimal abd pain tolerating food Vital Signs Period Temp Pulse Resp BP Sys/Christensen Pulse Ox Last 24 Hr 98.9 F-99.9 F 99-105 20-803 104-128/59-74 94 PE: AOx3 Neck: Supple HEENT: EOMI, Lungs: CTA CVS: S1S2 Abd: BS sluggish Ext: No edema Neuro: No focal deficit CMP Sodium 134 mmol/L (136-145) L 09/09/19 10:25 Potassium 3.7 mmol/L (3.5-5.1) 09/09/19 10:25 Chloride 100 mmol/L (98-107) 09/09/19 10:25 Carbon Dioxide 26 mmol/L (21-32) 09/09/19 10:25 Anion Gap 8 MMOL/L (8-16) 09/09/19 10:25 BUN 6.7 mg/dL (7-18) L 09/09/19 10:25 Creatinine 0.4 mg/dL (0.55-1.3) L 09/09/19 10:25 Est GFR (CKD-EPI)AfAm 155.30 09/09/19 10:25 Est GFR (CKD-EPI)NonAf 134.00 09/09/19 10:25 POC Glucometer 227 UNITS (80-120) 09/09/19 12:03 Random Glucose 260 mg/dL (74-106) H 09/09/19 10:25 Hemoglobin A1c % 10.9 % (4.2-6.3) H 09/03/19 10:00 Lactic Acid 0.8 mmol/L (0.4-2.0) 09/06/19 20:00 Calcium 8.4 mg/dL (8.5-10.1) L 09/09/19 10:25 Phosphorus 3.5 mg/dL (2.5-4.9) 09/08/19 08:35 Magnesium 2.1 mg/dL (1.8-2.4) 09/08/19 08:35 Total Bilirubin 0.4 mg/dL (0.2-1) 09/06/19 20:00 Direct Bilirubin 0.1 mg/dL (0.0-0.2) 09/04/19 18:00 AST 11 U/L (15-37) L 09/06/19 20:00 ALT 14 U/L (13-61) 09/06/19 20:00 Alkaline Phosphatase 92 U/L (45-117) 09/06/19 20:00 C-Reactive Protein 18.9 MG/DL (0.00-0.3) H 09/09/19 10:25 Total Protein 5.0 g/dl (6.4-8.2) L 09/06/19 20:00 Albumin 2.0 g/dl (3.4-5.0) L 09/06/19 20:00 Triglycerides 457 mg/dL (0-150) H 09/05/19 05:59 Cholesterol 363 mg/dL (50-200) H 09/03/19 07:54 Total LDL Cholesterol 111 mg/dL (5-100) H 09/03/19 07:54 HDL Cholesterol 25 mg/dL (40-60) L 09/03/19 07:54 Lipase 1765 U/L (73-393) H 09/04/19 05:20 Current Medications Generic Name Dose Route Start Last Admin Trade Name Freq PRN Reason Stop Dose Admin Acetaminophen 650 mg 09/06/19 18:13 Tylenol - PO Q6H PRN PAIN OR FEVER Bisacodyl 10 mg 09/06/19 14:23 Dulcolax Suppository - [place] DAILY PRN CONSTIPATION Enoxaparin Sodium 40 mg 09/07/19 10:00 09/09/19 09:46 Lovenox - SQ 40 mg DAILY DEBBIE Administration Gemfibrozil 600 mg 09/06/19 16:30 09/09/19 06:46 Lopid - PO 600 mg BID@0700,1630 DEBBIE Administration Insulin Aspart 1 vial 09/08/19 16:30 09/09/19 12:06 Novolog Vial Sliding Scale - SQ 4 units ACHS DEBBIE Administration Protocol Insulin Detemir 12 units 09/06/19 22:00 09/08/19 22:03 Levemir Vial SQ 12 units HS DEBBIE Administration Ondansetron HCl 4 mg 09/06/19 14:23 Zofran Injection IVPUSH Q4H PRN NAUSEA AND/OR VOMITING Ap: Acute Pancreatitis due to Hypertriglyceridemia H/O GDM/Hyperglycemia T2DM: A1c 10.9 Monitor serum Triglycerides Monitor BGM Tolerating food Gemfibrozil 600mg BID Levemir 12 units daily Increase Novolog SS Continue IVF with D5 until pt is able to tolerate full diet. Adjust rate to maintain blood sugar 120 to 180. Pain control with Morphine sulfate Nutrition consult
[2019-09-09 16:41] LABS: PLATELET ESTIMATE NORMAL
--- NOTE | 2019-09-09 17:41 | PN ---
Progress Note, Physician History of Present Illness: Pt seen and examined. Chart reviewed. She has been having intermittent low grade fevers with mild leukocytosis. Denies SOB or productive cough and abd pain has resolved, tolerating regular diet. She has no specific complaints. - Current Medication List Current Medications: Active Medications Acetaminophen (Tylenol -) 650 mg PO Q6H PRN PRN Reason: PAIN OR FEVER Bisacodyl (Dulcolax Suppository -) 10 mg [place] DAILY PRN PRN Reason: CONSTIPATION Enoxaparin Sodium (Lovenox -) 40 mg SQ DAILY [facility] Last Admin: 09/09/19 09:46 Dose: 40 mg Gemfibrozil (Lopid -) 600 mg PO BID@0700,1630 [facility] Last Admin: 09/09/19 17:00 Dose: 600 mg Insulin Aspart (Novolog Vial Sliding Scale -) 1 vial SQ HS [facility]; Protocol Insulin Aspart (Novolog Vial Sliding Scale -) 1 vial SQ TIDAC [facility]; Protocol Last Admin: 09/09/19 16:58 Dose: 4 units Insulin Detemir (Levemir Vial) 12 units SQ HS [facility] Last Admin: 09/08/19 22:03 Dose: 12 units Ondansetron HCl (Zofran Injection) 4 mg IVPUSH Q4H PRN PRN Reason: NAUSEA AND/OR VOMITING - Objective Vital Signs: Vital Signs Temperature 98.4 F 09/09/19 15:00 Pulse Rate 106 H 09/09/19 15:00 Respiratory Rate 18 09/09/19 15:00 Blood Pressure 107/64 09/09/19 15:00 O2 Sat by Pulse Oximetry (%) 94 L 09/09/19 10:00 Constitutional: Yes: No Distress, Calm Cardiovascular: Yes: Regular Rate and Rhythm Respiratory: Yes: Diminished (LT lower lung field decreased breath sounds) Gastrointestinal: Yes: Normal Bowel Sounds, Soft Genitourinary: Yes: WNL Musculoskeletal: Yes: WNL Extremities: Yes: WNL Edema: No Peripheral Pulses WNL: Yes Integumentary: Yes: WNL Neurological: Yes: Alert, Oriented Labs: CBC, BMP 09/09/19 10:25 09/09/19 10:25 - ....Imaging Chest X-ray: Report Reviewed (LLL atelectasis vs possible infiltrate) Problem List - Problems (1) Pancreatitis Code(s): K85.90 - ACUTE PANCREATITIS WITHOUT NECROSIS OR INFECTION, UNSP Qualifiers: Chronicity: acute Pancreatitis type: other Acute pancreatitis complication: no infection or necrosis Qualified Code(s): K85.80 - Other acute pancreatitis without necrosis or infection Assessment/Plan Pancreatitis Mild fever/leukocytosis LLL atelectasis/ Possible PNA -- will start Levaquin empirically as is still having fevers and wbc remains elevated -- continue incentive spirometry -- no further abdominal pain, tolerating regular diet -- continue monitor temp/wbc trend -- if pt improves will switch to PO antibiotics Will follow up
[2019-09-09] MEDS ORDERED: INSULIN (NOVOLOG) ASPART 100 UNITS/ML 10ML VIAL ONE (21:01)
[2019-09-09] MEDS: INSULIN (LEVEMIR) 100 UNITS/ML UNITS SQ SCH (21:57)
[2019-09-09] MEDS ORDERED: INSULIN SLIDING SCALE (NOVOLOG) 1 VIAL SQ SCH (22:00)
[2019-09-09] MEDS: ACETAMINOPHEN 325 MG TABLET (FP) PO PRN (22:09)
[2019-09-10] MEDS: ACETAMINOPHEN 325 MG TABLET (FP) PO PRN (04:06)
[2019-09-10] MEDS: GEMFIBROZIL 600 MG TABLET (FP) PO SCH (07:12)
[2019-09-10] MEDS: INSULIN SLIDING SCALE (NOVOLOG) 1 VIAL SQ SCH ×2 (07:12→12:33)
[2019-09-10] MEDS ORDERED: INSULIN (NOVOLOG) ASPART 100 UNITS/ML 10ML VIAL ONE (07:18)
[2019-09-10 08:56] LABS: BASO % 0.5 % (0-2.0); EOS % 0.6 % (0-4.5); HEMATOCRIT 34.8 % (32.4-45.2); HEMOGLOBIN 11.4 GM/dL (10.7-15.3); LYMPH % 10.1 % (8-40); MCH 26.1 pg (25.7-33.7); MCHC 32.8 g/dl (32.0-36.0); MEAN CELL VOLUME 79.5 fl (80-96); MEAN PLT VOLUME 7.5 fl (7.5-11.1); MONO % 6.1 % (3.8-10.2); NEUT % 82.7 % (42.8-82.8); PLATELET COUNT 373 K/MM3 (134-434); RBC 4.38 M/mm3 (3.60-5.2); RDW 16.1 % (11.6-15.6); WHITE BLOOD COUNT 12.3 K/mm3 (4.0-10.0)
[2019-09-10] MEDS: ENOXAPARIN NA (PORCINE) 40 MG/0.4 ML DISP.SYRIN SQ SCH (09:37)
[2019-09-10 09:57] VITALS: BP 115/69; PULSE 94; TEMP 98.2
--- NOTE | 2019-09-10 12:00 | DS ---
Physical Exam: SUBJECTIVE: Patient seen and examined, abdominal pain markedly improved, minimal , tolerating diet well. No fevers, chills, new cough, abdominal or urinary symptoms. OBJECTIVE: Vital Signs Period Temp Pulse Resp BP Sys/Christensen Pulse Ox Last 24 Hr 98.2 F-99.0 F 94-106 18-20 103-122/62-73 Intake & Output 09/07/19 09/08/19 09/09/19 09/10/19 23:59 23:59 23:59 23:59 Intake Total 2320 1525 3275 Balance 2320 1525 3275 PHYSICAL EXAM General: sitting in bed in no acute distress Neck: soft, supple, no JVD CVS:S1S2 regular Chest CTAB, no rales or wheezing Abdomen;Soft, minimal epigastric tenderness, no voluntary or involuntary guarding or rigidity, pos bowel sounds Extremities: no edema or tremors HEENT: PERRL, EOMI LABS Laboratory Results - last 24 hr 09/09/19 09/09/19 09/09/19 10:25 12:03 16:56 WBC RBC Hgb Hct MCV MCH MCHC RDW Plt Count MPV Absolute Neuts (auto) Neutrophils % Neutrophils % (Manual) 76.8 Band Neutrophils % 8.1 Lymphocytes % Lymphocytes % (Manual) 4.0 L Monocytes % Monocytes % (Manual) 7 Eosinophils % Eosinophils % (Manual) 1.0 D Basophils % Basophils % (Manual) 0.0 Myelocytes % (Man) 1 D Promyelocytes % (Man) 0 Blast Cells % (Manual) 0 Nucleated RBC % Metamyelocytes 0 Platelet Estimate Normal Polychromasia 1+ POC Glucometer 227 200 Triglycerides 09/09/19 09/10/19 09/10/19 21:27 06:19 08:22 WBC RBC Hgb Hct MCV MCH MCHC RDW Plt Count MPV Absolute Neuts (auto) Neutrophils % Neutrophils % (Manual) Band Neutrophils % Lymphocytes % Lymphocytes % (Manual) Monocytes % Monocytes % (Manual) Eosinophils % Eosinophils % (Manual) Basophils % Basophils % (Manual) Myelocytes % (Man) Promyelocytes % (Man) Blast Cells % (Manual) Nucleated RBC % Metamyelocytes Platelet Estimate Polychromasia POC Glucometer 249 176 Triglycerides 207 H 09/10/19 09/10/19 08:22 11:10 WBC 12.3 H RBC 4.38 Hgb 11.4 Hct 34.8 MCV 79.5 L MCH 26.1 MCHC 32.8 RDW 16.1 H Plt Count 373 MPV 7.5 Absolute Neuts (auto) 10.2 H Neutrophils % 82.7 Neutrophils % (Manual) Band Neutrophils % Lymphocytes % 10.1 D Lymphocytes % (Manual) Monocytes % 6.1 Monocytes % (Manual) Eosinophils % 0.6 Eosinophils % (Manual) Basophils % 0.5 Basophils % (Manual) Myelocytes % (Man) Promyelocytes % (Man) Blast Cells % (Manual) Nucleated RBC % 0 Metamyelocytes Platelet Estimate Polychromasia POC Glucometer 209 Triglycerides Microbiology 09/06/19 20:00 Blood - Peripheral Venous Blood Culture - Preliminary NO GROWTH OBTAINED AFTER 72 HOURS, INCUBATION TO CONTINUE FOR 2 DAYS. 09/06/19 20:00 Blood - Peripheral Venous Blood Culture - Preliminary NO GROWTH OBTAINED AFTER 72 HOURS, INCUBATION TO CONTINUE FOR 2 DAYS. 09/06/19 20:42 Urine - Urine Clean Catch Urine Culture - Final NO GROWTH OBTAINED 09/03/19 07:50 Urine - Urine Clean Catch Urine Culture - Final Strep Agalactiae Group B Staphylococcus Latex Coag Pos CT A/P: No prior CT/MRI studies are available at this facility for direct comparison. The exam is correlated with recently performed sonography of 09/03/2019. The pancreas appears somewhat prominent diffusely consistent with acute pancreatitis. There is no CT evidence of pancreatic necrosis. A prominent amount of peripancreatic fluid accumulation is seen which extends caudally along the pararenal spaces into the lower pelvis. A small amount of perihepatic , perisplenic and perigastric free intraperitoneal fluid is also seen. A small amount of bilateral perirenal fluid accumulation is seen which may be reactive in nature. There is no CT evidence of associated venous thrombosis. No discrete pseudoaneurysm is visualized. There is mildly increased attenuation layering along the posterior wall of the gallbladder fundus which may represent small calculi and/or inspissated bile/sludge. No CT evidence of acute cholecystitis. There is no biliary tract dilatation. Diffuse fatty infiltration of the liver is noted. The spleen, adrenal glands and kidneys demonstrate no discrete abnormality. The aorta appears unremarkable in caliber. No obvious lymphadenopathy is noted. The appendix is not definitely visualized however there are no obvious indirect CT signs of acute appendicitis. No evidence of acute diverticulitis or obvious acute colitis. There is no gross small bowel pathology. Will catheter in place The visualized osseous structures demonstrate no obvious CT evidence of acute abnormality. Impression: Acute pancreatitis is identified with extensive peripancreatic fluid accumulation extending into the pelvis. No CT evidence of pancreatic necrosis, abscess, venous thrombosis or pseudoaneurysm. Possible cholelithiasis and/or inspissated bile/sludge. No biliary tract dilatation is seen. There is diffuse hepatic steatosis. Bilateral pleural effusions. Abdominal US: Right upper abdomen ultrasound. The liver measures 18 cm in sagittal length with a slightly to moderately dense echotexture. Gallbladder is adequately distended without intraluminal stones or thickening of its wall. No intra or extrahepatic bile duct dilatation is seen. The right kidney measures 11 cm sagittal length and appears unremarkable. Visualized portion of the pancreas appears unremarkable Visualized portion of the proximal abdominal aorta and inferior vena cava appear unremarkable. Normal flow in the main portal vein. IMPRESSION: Mild hepatomegaly with fatty infiltration versus hepatocellular disease. Please correlate with liver enzymes. HOSPITAL COURSE: Date of Admission:09/03/19 Date of Discharge: 09/10/19 Minutes to complete discharge: 45 Discharge Summary Problems reviewed: Yes Reason For Visit: PANCREATITIS Current Active Problems -Severe acute pancreatitis -Hypertriglyceridemia -Hyperglycemia with new onset type II DM -LLL pleural effusion -h/o gestational DM Hospital Course: 34 yof with PMHx of gestational DM in 2018, admitted with severe pancreatitis, hypertriglyceridemia and hyperglycemia. She was admitted to ICU and placed on insulin drip, her triglyceride levels markedly improved, she was seen by endocrinology and started on gemfibrozil. She was started on levemir which has been titrated up to 12 units at bedtime and she was continued on premeal insulin coverage. She was noted with low grade fevers and persistent leucocytosis and had CT A/P as above that was negative for panreatic abscess, pseudocyst or new conerns. She had left sided pleural effusions with suspicion for infiltrate but no new respiratory symptoms. She was seen by infectious disease and placed on levaquin with resolution of her fevers. She was also seen by gastroenterology. Insulin teaching was provided, she will be discharged in stable condition with close outpatient PCP and endocrine follow up. Condition: Stable - Instructions Diet, Activity, Other Instructions: You presented to the hospital with abdominal pain. This was due to inflammation of your pancreas that occurs when your triglyceride levels are elevated. You were treated with IV medications and your symptoms improved. You were able to tolerate diet and are going home. You were found to have diabetes (A1c 10.9%); You are being started on insulin. Medication Changes: Please start 1. Gemfibrozil 600mg twice a day 2. Antibiotic levaquin 750 mg daily for 3 more days starting tomorrow 09/11/2019 2 .Levemir (detemir, long acting insulin) 12 units to be taken at bedtime. 3. Sliding scale insulin to be taken before each meal. -If your sugar is between 101-150, then please take 0 units of novolog -If your sugar is between 151-200, then please take 2 units of novolog -If your sugar is between 201-250, then please take 4 units of novolog -If your sugar is between 251-300, then please take 6 units of novolog -If your sugar is between 301-350, then please take 8 units of novolog -If your sugar is between 351-400, then please take 10 units of novolog -If your sugar is >400, then please CALL YOUR DOCTOR Follow up with the following physicians: 1. PCP in one week, please call to schedule follow up to further manage your diabetes,or you can follow up at the Medical clinic at [address] [place] [address] ( ) 2. Latent Fingerprint Examiner (Dr. Donaldson) in one week, Please call to schedule follow up to further manage your Triglyceride levels. 3. Import/Export Specialist (Dr. Alberto) in two weeks Follow up labs: 1. You will need to have repeat blood work in 6 weeks to recheck all your levels including hemoglobin A1c, Cholesterol panel Please continue to monitor your diet as you need to intake less sugar and drink plenty of fluids. Continue all your other medications as prescribed Please return to the ER if you have any signs or symptoms of chest pain, shortness of breath, uncontrollable fever, chills, nausea, vomiting, numbness, tingling, or weakness in any part of your body, changes in vision, or slurred speech. Please return to the ER if symptoms persist, worsen, or new symptoms arise. Referrals: Louis Jaen MD [Staff Physician] - 1 Week Alejandro Alberto DO [Staff Physician] - Alverto Donaldson MD [Staff Physician] - Disposition: HOME - Home Medications Comprehensive Discharge Medication List: Ambulatory Orders Gemfibrozil [Lopid -] 600 mg PO BID@0700,1630 #60 tablet 09/09/19 Insulin (Levemir) [Levemir Vial] 12 units SQ HS #1 vial 09/09/19 Insulin Pump Syringe, 3 ml [Minimed Joice] 1 each ACHS #60 each 09/09/19 Insulin Sliding Scale [Novolog Vial Sliding Scale -] 1 vial SQ TIDCM #1 vial 11/16 Miscellaneous Medical Supply [Glucometer Device] 1 each DIONY ASDIR #1 kit Miscellaneous Medical Supply [Glucometer Test Strips #100] 1 each DIONY ASDIR #1 box 09/09/19 levoFLOXacin [Levaquin] 750 mg PO DAILY #3 tab 09/10/19 This patient is new to me today: No Emergency Visit: Yes ED Registration Date: 09/03/19 Care time: The patient presented to the Emergency Department on the above date and was hospitalized for further evaluation of their emergent condition. Critical Care patient: No - Discharge Referral Referred to [facility] Med P.C.: No
[2019-09-10 13:10] LABS: ANISOCYTOSIS 0; MACROCYTOSIS 0; PLATELET ESTIMATE NORMAL
--- NOTE | 2019-09-10 13:10 | PN ---
Progress Note (short form) - Note Progress Note: Feels good No complaints No Abd pain, No NV Vital Signs Period Temp Pulse Resp BP Sys/Christensen Pulse Ox Last 24 Hr 98.2 F-99.0 F 94-106 18-20 103-122/62-73 PE: AOx3 Neck: Supple HEENT: EOMI, Lungs: CTA CVS: S1S2 Abd: BS sluggish Ext: No edema Neuro: No focal deficit CMP Sodium 134 mmol/L (136-145) L 09/09/19 10:25 Potassium 3.7 mmol/L (3.5-5.1) 09/09/19 10:25 Chloride 100 mmol/L (98-107) 09/09/19 10:25 Carbon Dioxide 26 mmol/L (21-32) 09/09/19 10:25 Anion Gap 8 MMOL/L (8-16) 09/09/19 10:25 BUN 6.7 mg/dL (7-18) L 09/09/19 10:25 Creatinine 0.4 mg/dL (0.55-1.3) L 09/09/19 10:25 Est GFR (CKD-EPI)AfAm 155.30 09/09/19 10:25 Est GFR (CKD-EPI)NonAf 134.00 09/09/19 10:25 POC Glucometer 209 UNITS (80-120) 09/10/19 11:10 Random Glucose 260 mg/dL (74-106) H 09/09/19 10:25 Hemoglobin A1c % 10.9 % (4.2-6.3) H 09/03/19 10:00 Lactic Acid 0.8 mmol/L (0.4-2.0) 09/06/19 20:00 Calcium 8.4 mg/dL (8.5-10.1) L 09/09/19 10:25 Phosphorus 3.5 mg/dL (2.5-4.9) 09/08/19 08:35 Magnesium 2.1 mg/dL (1.8-2.4) 09/08/19 08:35 Total Bilirubin 0.4 mg/dL (0.2-1) 09/06/19 20:00 Direct Bilirubin 0.1 mg/dL (0.0-0.2) 09/04/19 18:00 AST 11 U/L (15-37) L 09/06/19 20:00 ALT 14 U/L (13-61) 09/06/19 20:00 Alkaline Phosphatase 92 U/L (45-117) 09/06/19 20:00 C-Reactive Protein 18.9 MG/DL (0.00-0.3) H 09/09/19 10:25 Total Protein 5.0 g/dl (6.4-8.2) L 09/06/19 20:00 Albumin 2.0 g/dl (3.4-5.0) L 09/06/19 20:00 Triglycerides 207 mg/dL (0-150) H 09/10/19 08:22 Cholesterol 363 mg/dL (50-200) H 09/03/19 07:54 Total LDL Cholesterol 111 mg/dL (5-100) H 09/03/19 07:54 HDL Cholesterol 25 mg/dL (40-60) L 09/03/19 07:54 Lipase 1765 U/L (73-393) H 09/04/19 05:20 Current Medications Generic Name Dose Route Start Last Admin Trade Name Freq PRN Reason Stop Dose Admin Acetaminophen 650 mg 09/06/19 18:13 09/10/19 04:06 Tylenol - PO 650 mg Q6H PRN Administration PAIN OR FEVER Bisacodyl 10 mg 09/06/19 14:23 Dulcolax Suppository - [place] DAILY PRN CONSTIPATION Enoxaparin Sodium 40 mg 09/07/19 10:00 09/10/19 09:37 Lovenox - SQ 40 mg DAILY [facility] Administration Gemfibrozil 600 mg 09/06/19 16:30 09/10/19 07:12 Lopid - PO 600 mg BID@0700,1630 [facility] Administration Insulin Aspart 1 vial 09/09/19 22:00 09/09/19 21:58 Novolog Vial Sliding Scale - SQ 4 unit HS [facility] Administration Protocol Insulin Aspart 1 vial 09/09/19 16:30 09/10/19 12:33 Novolog Vial Sliding Scale - SQ 6 units TIDAC [facility] Administration Protocol Insulin Detemir 12 units 09/06/19 22:00 09/09/19 21:57 Levemir Vial SQ 12 units HS [facility] Administration Levofloxacin 750 mg 09/10/19 08:00 09/10/19 09:37 Levaquin - PO 09/13/19 06:01 750 mg DAILY@0600 [facility] Administration Ondansetron HCl 4 mg 09/06/19 14:23 Zofran Injection IVPUSH Q4H PRN NAUSEA AND/OR VOMITING Ap: Acute Pancreatitis due to Hypertriglyceridemia H/O GDM/Hyperglycemia T2DM: A1c 10.9 Trig 207 Monitor BGM Tolerating food Gemfibrozil 600mg BID Levemir 12 units daily Novolog SS
--- NOTE | 2019-09-10 14:09 | PN ---
Progress Note, Physician History of Present Illness: Pt feeling well. Has been afebrile since yesterday. No SOB or any other complaints. - Current Medication List Current Medications: Active Medications Acetaminophen (Tylenol -) 650 mg PO Q6H PRN PRN Reason: PAIN OR FEVER Last Admin: 09/10/19 04:06 Dose: 650 mg Bisacodyl (Dulcolax Suppository -) 10 mg [place] DAILY PRN PRN Reason: CONSTIPATION Enoxaparin Sodium (Lovenox -) 40 mg SQ DAILY [facility] Last Admin: 09/10/19 09:37 Dose: 40 mg Gemfibrozil (Lopid -) 600 mg PO BID@0700,1630 [facility] Last Admin: 09/10/19 07:12 Dose: 600 mg Insulin Aspart (Novolog Vial Sliding Scale -) 1 vial SQ HS [facility]; Protocol Last Admin: 09/09/19 21:58 Dose: 4 unit Insulin Aspart (Novolog Vial Sliding Scale -) 1 vial SQ TIDAC [facility]; Protocol Last Admin: 09/10/19 12:33 Dose: 6 units Insulin Detemir (Levemir Vial) 12 units SQ HS [facility] Last Admin: 09/09/19 21:57 Dose: 12 units Levofloxacin (Levaquin -) 750 mg PO DAILY@0600 [facility] Stop: 09/13/19 06:01 Last Admin: 09/10/19 09:37 Dose: 750 mg Ondansetron HCl (Zofran Injection) 4 mg IVPUSH Q4H PRN PRN Reason: NAUSEA AND/OR VOMITING - Objective Vital Signs: Vital Signs Temperature 98.2 F 09/10/19 09:57 Pulse Rate 94 H 09/10/19 09:57 Respiratory Rate 18 09/10/19 09:57 Blood Pressure 115/69 09/10/19 09:57 O2 Sat by Pulse Oximetry (%) 94 L 09/09/19 10:00 Constitutional: Yes: No Distress, Calm Cardiovascular: Yes: Regular Rate and Rhythm Respiratory: Yes: CTA Bilaterally Gastrointestinal: Yes: Normal Bowel Sounds, Soft Genitourinary: Yes: WNL Musculoskeletal: Yes: WNL Extremities: Yes: WNL Integumentary: Yes: WNL Neurological: Yes: Alert, Oriented Labs: CBC, BMP 09/10/19 08:22 09/09/19 10:25 Microbiology 09/06/19 20:00 Blood - Peripheral Venous Blood Culture - Preliminary NO GROWTH OBTAINED AFTER 72 HOURS, INCUBATION TO CONTINUE FOR 2 DAYS. 09/06/19 20:00 Blood - Peripheral Venous Blood Culture - Preliminary NO GROWTH OBTAINED AFTER 72 HOURS, INCUBATION TO CONTINUE FOR 2 DAYS. 09/06/19 20:42 Urine - Urine Clean Catch Urine Culture - Final NO GROWTH OBTAINED 09/03/19 07:50 Urine - Urine Clean Catch Urine Culture - Final Strep Agalactiae Group B Staphylococcus Latex Coag Pos - ....Imaging Chest X-ray: Report Reviewed Problem List - Problems (1) Pancreatitis Code(s): K85.90 - ACUTE PANCREATITIS WITHOUT NECROSIS OR INFECTION, UNSP Qualifiers: Chronicity: acute Pancreatitis type: other Acute pancreatitis complication: no infection or necrosis Qualified Code(s): K85.80 - Other acute pancreatitis without necrosis or infection Assessment/Plan Pancreatitis Mild fever/leukocytosis LLL atelectasis/ Possible PNA -- Pt afebrile since yesterday -- no further abdominal pain, tolerating regular diet -- Pt being discharged home on PO antibiotics, instructed to return if develops fever/cough/SOB or abd symptoms
== END 2019-09-10 15:38 | disposition home or self-care (01) | DRG 423 ==
LOC: JER 05:55 → JERBED 09:25 → J8W 13:04 → JICU 19:34 → J5S 09-06 13:57
PROVIDERS: ADMIT Internal Medicine; ATTEND Hospitalist
DX: E78.1 Pure hyperglyceridemia (principal); K85.90 Acute pancreatitis without necrosis or infection, unspecified; K76.0 Fatty (change of) liver, not elsewhere classified; E87.6 Hypokalemia; E11.65 Type 2 diabetes mellitus with hyperglycemia; E87.1 Hypo-osmolality and hyponatremia; D72.829 Elevated white blood cell count, unspecified; R63.0 Anorexia; E83.39 Other disorders of phosphorus metabolism; J98.11 Atelectasis; J90 Pleural effusion, not elsewhere classified; J18.9 Pneumonia, unspecified organism; J84.10 Pulmonary fibrosis, unspecified; E83.42 Hypomagnesemia; N39.0 Urinary tract infection, site not specified; R11.0 Nausea; R50.9 Fever, unspecified
CPT/HCPCS: 36415; 71045-TC-FY; 74177-TC; 76705-TC; 80048; 80053; 80076; 81003; 82465; 82962; 83036; 83605; 83690; 83718; 83721; 83735; 84100; 84478; 84703; 85025; 85027; 86140; 87040; 87077; 87086; 93005; 93010; 94010; 99284-25; J0131; J7030; Q9967